=== PATIENT | female | born 1960 | race Caucasian/White ===

== ENCOUNTER 2018-02-14 08:10 | Emergency (ER) | payer BC, SELFPAY ==
[2018-02-14 08:15] VITALS: BP 123/79; PULSE 71; RESP 14; TEMP 37; O2SAT 100
--- NOTE | 2018-02-14 09:34 | ED.GENADUL_ITS ---
Discharge Plan Discharge Details Chief Complaint: Vascular Clinical Impression: Superficial thrombophlebitis of right leg Reason For Visit: leg rash Primary Care Provider: Mark Bowers ED Provider: Gato Hawley Disposition Patient Disposition: HOME Condition: Stable Home Meds and New Rx's Prescriptions: New amoxicillin-pot clavulanate [Augmentin] 875-125 mg tablet 1 tab PO BID Qty: 14 RF: 0 Continue esomeprazole magnesium [Nexium] 20 MG capsule,delayed release(DR/EC) 20 mg PO DAILY RF: 0 Discharge Instructions Instructions: Superficial Thrombophlebitis (ED) Additional Instructions: follow up with your primary care provider within a week if you have fevers or severe worsening of pain, or your whole leg becomes swollen return to the emergency department Discharge Data Discharge Physician: Gato Hawley Medical Decision Making MDM Narrative Medical decision making narrative: Pt here with what appears to be superficial thrombophlebitis of her varicose vein. She has no leg swelling and area is not near big veins of the leg so doubt dvt. Will start abx and advised f/u with pcp and return precautions given. She has no pain in in guinal canal so doubt hernia. No fevers, severe pain or crepitus to suggest nec fasc Differential Diagnosis thrombophlebitis, cellulitis, dvt HPI - General Adult General Mode of arrival: ambulatory . Date/Time Provider Initiated Documentation: 02/14/18 08:24 . Limitations to Documentation: no limitations . Information obtained by: patient . History of Present Illness 57 year old F presents to the emergency department with the chief complaint of right groin lump, described as mild, with intensity rated at 3. Quality is described as aching, and is localized to the lower extremity. Patient reports no radiation. Patient started experiencing this day(s) (1) and it has been constant. No relieving factors improve symptom(s), No exacerbating factors reported . Patient notes chest pain; denies fever/chills. Patient did receive the following treatments prior to arrival, none Related Data Home Medications Medication Instructions Recorded Confirmed esomeprazole magnesium [Nexium] 20 mg PO DAILY 04/06/14 02/14/18 Previous Rx's Medication Instructions Recorded amoxicillin-pot clavulanate 1 tab PO BID #14 tab 02/14/18 [Augmentin] Allergies Allergy/AdvReac Type Severity Reaction Status Date / Time No Known Allergies Allergy Unverified 02/14/18 08:19 General Stated Complaint: Vascular SARAH: 4 Review of Systems Review of Systems All systems reviewed & are unremarkable except as noted in HPI and below Constitutional Denies chills, Denies fever(s) and Denies weakness Eyes Patient Denies loss of vision ENT Denies change in voice Cardiovascular Denies chest pain and Denies dyspnea Respiratory Denies dyspnea Gastrointestinal Denies abdominal pain, Denies nausea and Denies vomiting Genitourinary Denies dysuria Musculoskeletal Denies joint swelling Integumentary/Breasts Reports rash Neurologic Denies loss of vision and Denies weakness Psychiatric Denies depression Endocrine Denies cold intolerance and Denies heat intolerance Allergic/Immunologic Reports urticaria PFSH Family History Mother Essential hypertension Personal history of malignant neoplasm Alzheimer disease Father Personal history of malignant neoplasm Sister Personal history of malignant neoplasm Sister No problems noted. Brother No problems noted. Brother No problems noted. Grandfather Alzheimer disease Grandfather Personal history of malignant neoplasm Grandmother Alzheimer disease Grandmother No problems noted. Medical History Angiomyolipoma of left kidney Anxiety Depression Hemorrhoids Reflux Social History Smoking/Tobacco Use Status: Former Tobacco Use Surgical History Appendectomy (~2002) Biopsy of breast Cholecystectomy (~2009) LEG VEIN EXCISION Ligation of fallopian tube (~1998) Repair of inguinal hernia Exam Const General: no acute distress Orientation: alert HENMT Head: normal to inspection Ears: external ears normal General nose exam: external nose normal Mouth: moist mucous membranes Eyes General: appearance normal, both eyes and all related structures Neck Neck: normal visual inspection Resp Effort & Inspection: normal respiratory effort and able to speak in complete sentences Cardio Rate: regular rate Skin General skin exam: other (right upper leg in mid anterior thigh has 0.5cm nodule in her varicose veins. There is no leg swelling or pitting edema. 2cm surrounding erythema with mild warmth, no calf pain or tenderness, no discharge or severe pain, no rashes or pain in inguinal canal) Neuro General: alert and oriented x3 Extrem General: normal to inspection Psych Mental Status: mental status grossly normal Course Vital Signs Temperature 37.0 C 02/14/18 08:15 Pulse 71 02/14/18 08:15 Respiratory Rate 14 02/14/18 08:15 Blood Pressure 123/79 02/14/18 08:15 Pulse Oximetry 100 02/14/18 08:15 Temperature 37.0 C 02/14/18 08:15 Pulse 71 02/14/18 08:15 Respiratory Rate 14 02/14/18 08:15 Blood Pressure 123/79 02/14/18 08:15 Pulse Oximetry 100 02/14/18 08:15
[2018-02-14 09:44] VITALS: RESP 12
[2018-02-14 10:00] VITALS: BP 119/79; PULSE 73; RESP 12; TEMP 36.9; O2SAT 97
== END 2018-02-14 10:01 | disposition home or self-care (01) ==
PROVIDERS: Emergency Provider Emergency Medicine; PCP Family Medicine
DX: I80.01 Phlebitis and thrombophlebitis of superficial vessels of right lower extremity (principal)
CPT/HCPCS: 99283

== ENCOUNTER 2018-07-16 02:09 | Outpatient (CLI) | payer BC, SELFPAY ==
[2018-07-16 11:36] LABS: HCT 40.1 % (36.0-46.0); HGB 12.9 g/dL (12.0-15.5); Mean Corp. HGB Concentration 32.2 g/dL (32.0-36.0); Mean Corpuscular Hemoglobin 29.5 pg (27.0-33.0); Mean Corpuscular Volume 91.8 fL (80-95); Mean Platelet Volume 11.2 fL (8.0-11.0); Platelet Count 254 x1000/uL (130-400); RBC 4.37 m/cumm (4.00-5.20); RBC Distribution Width 12.4 % (11.7-14.6); White Blood Cell Count 4.76 k/cumm (4.4-10.8)
[2018-07-16 11:52] LABS: Albumin 3.6 g/dL (3.4-5.0); Alkaline Phosphatase 86 U/L (46-116); BUN 15 mg/dL (7-18); Bilirubin, Total 0.4 mg/dL (0.2-1.0); CO2 30.8 mmol/L (21.0-32.0); CREATININE 0.57 mg/dL (0.55-1.02); Calcium 9.8 mg/dL (8.5-10.1); Chloride 105 mmol/L (98-107); Glucose 90 mg/dL (70-100); Potassium 4.3 mmol/L (3.5-5.1); Sodium 143 mmol/L (136-145); Total Protein 7.4 g/dL (6.4-8.2)
[2018-07-16 11:53] LABS: ALT 26 U/L (12-78); AST 19 U/L (15-37); Anion Gap 7.2 mmol/L (3-11); TSH (W/Ref FT4) 0.01 uIU/mL (0.358-3.74)
[2018-07-16 12:12] LABS: FREE T4 0.96 ng/dL (0.76-1.46)
== END 2018-07-16 02:29 ==
PROVIDERS: PCP Family Medicine; Visit Provider Family Medicine
DX: K21.9 Gastro-esophageal reflux disease without esophagitis (principal)
CPT/HCPCS: 36415; 80053; 85027; 84439; 84443

== ENCOUNTER 2018-12-06 12:25 | Outpatient (REF) | payer BC, SELFPAY ==
--- NOTE | 2018-12-06 12:10 | PAPFT_PTH ---
PATIENT: Althea Vargas LOC: [facility] U#:[id number] AGE/SX: 58/F ROOM: RE12/06/[address]: Jose Smith MD : 1960 BED: DIS: 12/06/2018 SPEC #: [id number] RECD: 12/06/18 16:44 STATUS: NAY REQ #: [id number] MARY: 12/06/18 12:[address]: Jose Smith DEPT: [facility] Cytology RECD BY: Mel Suarez ENTERED: 12/06/18 16:46 SP TYPE: PAPFT OTHR DR: Mark Bowers MD Tissues: 1 - CX/ENDOCX FOR PAP SMEARS Procedures: PAP THIN PREP/UVM Screening HPV DNA PROBE Comments: [id number]
== END 2018-12-06 12:45 ==
LOC: LBN 12:25
PROVIDERS: PCP Family Medicine; Visit Provider Obstetrics & Gynecology
DX: Z12.4 Encounter for screening for malignant neoplasm of cervix (principal); Z11.51 Encounter for screening for human papillomavirus (HPV)
CPT/HCPCS: 88142; 87624

== ENCOUNTER 2018-12-10 00:56 | Outpatient (CLI) | payer BC, SELFPAY ==
--- NOTE | 2018-12-10 12:30 | DI.US_ITS ---
SYMPTOMS/DIAGNOSIS: ABD PAIN AND CRAMPING, R10.9 PELVIC ULTRASOUND: Transabdominal and transvaginal exams were performed. Comparison is made with [id number]. The uterus measures 6.7 x 6 x 5.2 cm. Three discrete fibroids are identified, the largest measuring 3.3 cm located posteriorly. The endometrial stripe appears thickened at 5.5 mm. The right ovary is unremarkable. The left ovary was not able to be visualized. No free fluid or hydronephrosis is seen. IMPRESSION: Small uterine fibroids. Mild endometrial thickening.
== END 2018-12-10 01:16 ==
PROVIDERS: PCP Family Medicine; Visit Provider Obstetrics & Gynecology
DX: R10.9 Unspecified abdominal pain (principal); D25.9 Leiomyoma of uterus, unspecified
CPT/HCPCS: 76830; 76856

== ENCOUNTER 2018-12-23 11:46 | Outpatient (REF) | payer BC, SELFPAY ==
--- NOTE | 2018-12-23 11:10 | ENDOMET_PTH ---
PATIENT: Althea Vargas LOC: [facility] U#:[id number] AGE/SX: 58/F ROOM: RE12/23/[address]: Jose Smith MD : 1960 BED: DIS: 12/23/2018 SPEC #: [id number] RECD: 12/23/18 12:59 STATUS: ANY REQ #: [id number] MARY: 12/23/18 11:[address]: Jose Smith DEPT: Surgical Specimen RECD BY: Mel Suarez ENTERED: 12/23/18 12:59 SP TYPE: Endomet OTHR DR: Mark Bowers MD Tissues: 1 - ENDOMETRIUM BX/CURRETTE Procedures: GROSS AND MICRO LEVEL 4 Comments: [id number]
== END 2018-12-23 12:06 ==
LOC: LBN 11:46
PROVIDERS: PCP Family Medicine; Visit Provider Obstetrics & Gynecology
DX: N85.01 Benign endometrial hyperplasia (principal)
CPT/HCPCS: 88305

== ENCOUNTER 2019-03-13 01:31 | Outpatient (CLI) | payer BC, SELFPAY ==
[2019-03-13 10:17] LABS: FREE T4 1.06 ng/dL (0.76-1.46)
[2019-03-13 10:45] LABS: TSH < 0.01 uIU/mL (0.36-3.74)
[2019-03-13 16:49] LABS: T3,Free 5.4 pg/ml (2.8-5.3)
== END 2019-03-13 01:51 ==
PROVIDERS: PCP Family Medicine; Visit Provider Family Medicine
DX: R79.89 Other specified abnormal findings of blood chemistry (principal)
CPT/HCPCS: 36415; 84439; 84443; 84481

== ENCOUNTER 2019-03-24 01:10 | Outpatient (CLI) | payer BC, SELFPAY ==
--- NOTE | 2019-03-24 10:18 | DI.US_ITS ---
EXAM: US SOFT TISS EXTREMITY/GROIN CLINICAL HISTORY: left ant thigh mass R22.40. TECHNIQUE: Ultrasound performed using standard protocol. COMPARISON: US PELVIS TRANSVAGINAL from 12/10/2018 FINDINGS: Soft tissue ultrasound of the left anterior thigh was performed to evaluate palpable abnormalities. There are 2 areas corresponding ultrasound abnormality at, 1 more inferiorly measuring about 8 millim eters in greatest diameter with a a homogeneous echotexture and slightly increased echogenicity in c omparison with surrounding subcutaneous fat. This has appearance consistent with lipoma. A more sup eriorly located palpable area of abnormality corresponds to normal appearing subcutaneous fat echoge nicity. Findings as described are also consistent with lipoma or normal subcutaneous fat. No additi onal mass or cyst identified. IMPRESSION: Ultrasound findings correspond to lipomas of the left anterior thigh.
== END 2019-03-24 01:30 ==
PROVIDERS: PCP Family Medicine; Visit Provider Family Medicine
DX: R22.42 Localized swelling, mass and lump, left lower limb (principal); D17.24 Benign lipomatous neoplasm of skin and subcutaneous tissue of left leg
CPT/HCPCS: 76882

== ENCOUNTER 2019-03-25 10:22 | Outpatient (CLI) | payer BC, SELFPAY ==
[2019-03-26 10:19] LABS: Thyroglobulin Antibody 15 U/mL (<61); Thyroperoxidase Antibody <28 U/mL (<61)
[2019-03-26 14:45] LABS: Thyrotropin Receptor Ab <1.00 IU/L
== END 2019-03-25 10:42 ==
PROVIDERS: PCP Family Medicine; Visit Provider Family Medicine
DX: E05.90 Thyrotoxicosis, unspecified without thyrotoxic crisis or storm (principal)
CPT/HCPCS: 36415; 86376; 84235

== ENCOUNTER 2019-04-16 01:58 | Outpatient (CLI) | payer BC, SELFPAY ==
--- NOTE | 2019-04-16 09:22 | DI.NM_ITS ---
EXAM: NM I123 THYROID UP AND SC DAY 1 CLINICAL HISTORY: low TSH with elevated T3 r/o toxic adenoma TECHNIQUE: Thyroid uptake and scan was performed with ingestion of I-123 capsule, 346 microcuries. COMPARISON: Post CCK from 01/04/2010 FINDINGS: The 24-hour radioactive iodine uptake is 42 percent, which is slightly above the normal range of 10-3 5 percent. The 4-hour uptake is 16 percent, which is in the normal range. Thyroid scanning shows unremarkable homogeneous appearance of the thyroid gland. IMPRESSION: Mildly increased I-123 thyroid uptake at 42 percent. Visually normal thyroid.
== END 2019-04-16 02:18 ==
PROVIDERS: PCP Family Medicine; Visit Provider Family Medicine
DX: E05.90 Thyrotoxicosis, unspecified without thyrotoxic crisis or storm (principal); R94.6 Abnormal results of thyroid function studies
CPT/HCPCS: A9516

== ENCOUNTER 2019-04-17 02:10 | Outpatient (CLI) | payer BC, SELFPAY ==
--- NOTE | 2019-04-17 09:34 | DI.NM_ITS ---
EXAM: NM I123 THYROID UP SC DAY 2 CLINICAL HISTORY: low tsh with elevated T3 r/o toxic adenoma E05.90THYROTOXICOSIS. TECHNIQUE: Thyroid uptake and scan was performed with ingestion of I-123 capsule, 346 microcuries. COMPARISON: Post CCK from 01/04/2010 FINDINGS: The 24-hour radioactive iodine uptake is 42 percent, which is slightly above the normal range of 10-3 5 percent. The 4-hour uptake is 16 percent, which is in the normal range. Thyroid scanning shows unremarkable homogeneous appearance of the thyroid gland. IMPRESSION: Mildly increased I-123 thyroid uptake at 42 percent. Visually normal thyroid.
== END 2019-04-17 02:30 ==
PROVIDERS: PCP Family Medicine; Visit Provider Family Medicine
DX: E05.90 Thyrotoxicosis, unspecified without thyrotoxic crisis or storm (principal); R94.6 Abnormal results of thyroid function studies
CPT/HCPCS: 78014; A9512

== ENCOUNTER 2020-03-25 13:22 | Outpatient (REF) | payer BC, SELFPAY ==
--- NOTE | 2020-03-25 11:30 | PAPFT_PTH ---
PATIENT: Althea Vargas LOC: [facility] U#:[id number] AGE/SX: 59/F ROOM: RE03/25/[address]: Leora Delong APRN : 1960 BED: DIS: 03/25/2020 SPEC #: [id number] RECD: 03/26/20 12:03 STATUS: NAY REHiwot #: [id number] MARY: 03/25/20 11:[address]: Leora Delong DEPT: [facility] Cytology RECD BY: Agnes Sagastume Tissues: 1 - CX/ENDOCX FOR PAP SMEARS Procedures: PAP THIN PREP/UVM Screening HPV DNA PROBE Comments: [id number] (HPV 16/HPV 18/45)
== END 2020-03-25 13:42 ==
LOC: LBN 13:22
DX: Z87.42 Personal history of other diseases of the female genital tract (principal); Z12.4 Encounter for screening for malignant neoplasm of cervix
CPT/HCPCS: 88142; 87624

== ENCOUNTER → 2020-03-30 01:29 | Outpatient (CLI) | payer BC, SELFPAY ==
[2020-03-30 10:51] LABS: ALT 24 U/L (14-59); AST 17 U/L (15-37); Albumin 3.7 g/dL (3.4-5.0); Alkaline Phosphatase 92 U/L (46-116); Anion Gap 7.8 mmol/L (3-11); BUN 15 mg/dL (7-18); Bilirubin, Total 0.6 mg/dL (0.2-1.0); CO2 29.2 mmol/L (21.0-32.0); CREATININE 0.63 mg/dL (0.55-1.02); Calcium 9.1 mg/dL (8.5-10.1); Calculated LDL 150 mg/dL (<100); Chloride 104 mmol/L (98-107); Cholesterol 224 mg/dL (<200); Glucose 94 mg/dL (74-106); HDL Cholesterol 65 mg/dL (40-60); Potassium 4.4 mmol/L (3.5-5.1); Sodium 141 mmol/L (136-145); Total Protein 7.2 g/dL (6.4-8.2); Triglyceride 47 mg/dL (<150); Vitamin B12 405 pg/mL (193-986)
[2020-03-30 14:11] LABS: FREE T4 1.24 ng/dL (0.76-1.46)
== END ==
DX: Z00.00 Encounter for general adult medical examination without abnormal findings (principal); R53.83 Other fatigue; D51.8 Other vitamin B12 deficiency anemias; F32.9 Major depressive disorder, single episode, unspecified; E03.9 Hypothyroidism, unspecified; Z13.220 Encounter for screening for lipoid disorders
CPT/HCPCS: 36415; 80053; 80061; 82607; 84439; 84443

== ENCOUNTER 2020-09-07 03:23 | Outpatient (CLI) | payer BC, SELFPAY ==
[2020-09-08 15:54] LABS: COVID-19 RT-PCR UVMMC Result Negative (Negative)
== END 2020-09-07 03:24 | disposition home or self-care (01) ==
LOC: LBO 03:23
DX: Z20.822 Contact with and (suspected) exposure to COVID-19 (principal)
CPT/HCPCS: U0003

== ENCOUNTER 2020-10-28 13:40 | Outpatient (REF) | payer BC, SELFPAY ==
[2020-10-28 21:30] LABS: TSH (W/Ref FT4) < 0.01 uIU/mL (0.36-3.74)
[2020-10-28 22:09] LABS: FREE T4 1.31 ng/dL (0.76-1.46)
== END 2020-10-28 13:41 | disposition home or self-care (01) ==
LOC: LBN 13:40
PROVIDERS: Visit Provider Nurse Practitioner Family
DX: G47.00 Insomnia, unspecified (principal); R94.6 Abnormal results of thyroid function studies
CPT/HCPCS: 84439; 84443

== ENCOUNTER 2021-02-03 09:05 | Outpatient (CLI) | payer BC, SELFPAY ==
[2021-02-03 13:32] LABS: TSH (W/Ref FT4) < 0.01 uIU/mL (0.36-3.74)
[2021-02-03 13:57] LABS: FREE T4 1.21 ng/dL (0.76-1.46)
[2021-02-03 17:08] LABS: T3,Free 5.6 pg/mL (2.8-5.3)
== END 2021-02-03 09:06 | disposition home or self-care (01) ==
LOC: LOS 09:08
DX: G47.00 Insomnia, unspecified (principal); R79.89 Other specified abnormal findings of blood chemistry
CPT/HCPCS: 36415; 84439; 84443; 84481

== ENCOUNTER 2021-03-28 11:52 | Outpatient (REF) | payer BC, SELFPAY ==
--- NOTE | 2021-03-28 10:00 | PAPFT_PTH ---
PATIENT: Althea Vargas LOC: [facility] U#:[id number] AGE/SX: 60/F ROOM: RE03/28/[address]: Leora Delong APRN : 1960 BED: DIS: 03/28/2021 SPEC #: [id number] RECD: 03/29/21 13:10 STATUS: NAY REQ #: [id number] MARY: 03/28/21 10:[address]: Nevaeh Shoemaker DEPT: [facility] Cytology RECD BY: Mel Suarez ENTERED: 03/29/21 13:10 SP TYPE: PAPFT OTHR DR: Leora Delong APRN Tissues: 1 - CX/ENDOCX FOR PAP SMEARS Procedures: PAP THIN PREP/UVM Screening HPV DNA PROBE Comments: [id number] (HPV 16 & 18/45)
== END 2021-03-28 11:53 | disposition home or self-care (01) ==
LOC: LBN 11:52
DX: Z12.4 Encounter for screening for malignant neoplasm of cervix (principal); Z11.51 Encounter for screening for human papillomavirus (HPV); B97.7 Papillomavirus as the cause of diseases classified elsewhere
CPT/HCPCS: 88142; 87624

== ENCOUNTER 2021-03-30 01:41 | Outpatient (CLI) | payer BC, SELFPAY ==
[2021-03-30 11:28] LABS: ALT 26 U/L (14-59); AST 15 U/L (15-37); Albumin 3.6 g/dL (3.4-5.0); Alkaline Phosphatase 94 U/L (46-116); Anion Gap 8.6 mmol/L (3-11); BUN 17 mg/dL (7-18); Bilirubin, Total 0.6 mg/dL (0.2-1.0); CO2 27.4 mmol/L (21.0-32.0); CREATININE 0.6 mg/dL (0.55-1.02); Calcium 9.1 mg/dL (8.5-10.1); Calculated LDL 148 mg/dL (<100); Chloride 108 mmol/L (98-107); Cholesterol 223 mg/dL (<200); Glucose 93 mg/dL (74-106); HDL Cholesterol 65 mg/dL (40-60); Potassium 4.2 mmol/L (3.5-5.1); Sodium 144 mmol/L (136-145); Total Protein 7.1 g/dL (6.4-8.2); Triglyceride 54 mg/dL (<150)
[2021-03-30 18:46] LABS: Prolactin 6.9 ng/mL (See Table); Thyroglobulin Antibody <15 U/mL (<=60); Thyroperoxidase Antibody <28 U/mL (<=60)
[2021-03-31 12:34] LABS: Thyrotropin Receptor Ab <1.10 IU/L
== END 2021-03-30 01:42 | disposition home or self-care (01) ==
LOC: LOS 01:41
DX: Z00.00 Encounter for general adult medical examination without abnormal findings (principal); E78.5 Hyperlipidemia, unspecified; R79.89 Other specified abnormal findings of blood chemistry
CPT/HCPCS: 36415; 80053; 80061; 82533; 86376; 84146; 84235

== ENCOUNTER 2022-10-13 14:43 | Outpatient (REF) | payer BC, SELFPAY ==
[2022-10-13 12:35] LABS: ALT 29 U/L (14-59); AST 20 U/L (15-37); Albumin 3.8 g/dL (3.4-5.0); Alkaline Phosphatase 88 U/L (46-116); Amylase 44 U/L (25-115); BUN 25 mg/dL (7-18); Bilirubin, Total 0.4 mg/dL (0.2-1.0); CREATININE 0.7 mg/dL (0.55-1.02); Calcium 9.5 mg/dL (8.5-10.1); Chloride 105 mmol/L (98-107); Estimated GFR 97.72 (mL/min/1.73m2); Glucose 106 mg/dL (74-106); Lipase 42 U/L (16-77); Potassium 4.6 mmol/L (3.5-5.1); Sodium 141 mmol/L (136-145); Total Protein 7.5 g/dL (6.4-8.2)
[2022-10-13 12:49] LABS: Calculated LDL 190 mg/dL (<100); Cholesterol 272 mg/dL (<200); HDL Cholesterol 68 mg/dL (40-60); Triglyceride 72 mg/dL (<150)
== END 2022-10-13 14:44 | disposition home or self-care (01) ==
LOC: LBN 14:43
PROVIDERS: PCP Nurse Practitioner Family; Visit Provider Nurse Practitioner Family
DX: R10.11 Right upper quadrant pain (principal); Z13.1 Encounter for screening for diabetes mellitus; Z13.220 Encounter for screening for lipoid disorders
CPT/HCPCS: 80053; 80061; 83690; 82150

== ENCOUNTER 2022-11-10 14:08 | Outpatient (REF) | payer BC, SELFPAY ==
--- NOTE | 2022-11-10 13:30 | PAPFT_PTH ---
PATIENT: Althea Vargas LOC: [facility] U#:[id number] AGE/SX: 62/F ROOM: RE11/10/[address]: Olinda Hernandez : 1960 BED: DIS: 11/10/2022 SPEC #: [id number] RECD: 11/10/22 17:19 STATUS: NAY REHiwot #: [id number] MARY: 11/10/22 13:[address]: Olinda Hernandez DEPT: [facility] Cytology RECD BY: Mel Suarez ENTERED: 11/10/22 17:20 SP TYPE: PAPFT OTHR DR: Dawson Chirinos DNP Tissues: 1 - CX/ENDOCX FOR PAP SMEARS Procedures: PAP THIN PREP/UVM Screening HPV DNA PROBE Comments: [id number]
== END 2022-11-10 14:09 | disposition home or self-care (01) ==
LOC: LBN 14:08
PROVIDERS: PCP Nurse Practitioner Family; Visit Provider Obstetrics & Gynecology Gynecology
DX: Z12.4 Encounter for screening for malignant neoplasm of cervix (principal); Z11.51 Encounter for screening for human papillomavirus (HPV); R87.810 Cervical high risk human papillomavirus (HPV) DNA test positive
CPT/HCPCS: 88142; 87624

== ENCOUNTER 2022-12-25 09:26 | Outpatient (REF) | payer BC, SELFPAY ==
--- NOTE | 2022-12-25 08:30 | CER_PTH ---
PATIENT: Althea Vargas LOC: [facility] U#:[id number] AGE/SX: 62/F ROOM: RE12/25/[address]: Olinda Hernandez : 1960 BED: DIS: 12/25/2022 SPEC #: [id number] RECD: 12/25/22 12:29 STATUS: NAY REHiwot #: [id number] MARY: 12/25/22 08:[address]: Olinda Hernandez DEPT: Surgical Specimen RECD BY: Agnes Sagastume ENTERED: 12/25/22 12:31 SP TYPE: CER OTHR DR: Dawson Chirinos DNP Tissues: 1 - CERVICAL BIOPSY Procedures: GROSS AND MICRO LEVEL 4 IMMUNOPEROXIDASE STAIN Comments: [id number]
== END 2022-12-25 09:27 | disposition home or self-care (01) ==
LOC: LBN 09:26
PROVIDERS: PCP Nurse Practitioner Family; Visit Provider Obstetrics & Gynecology Gynecology
DX: Z86.19 Personal history of other infectious and parasitic diseases (principal)
CPT/HCPCS: 88305; 88361

== ENCOUNTER 2023-10-06 13:26 | Outpatient (REF) | payer BC, SELFPAY | END 2023-10-06 13:27 | disposition home or self-care (01) | LOC: LBN 13:26 | PROVIDERS: PCP Nurse Practitioner Family; Visit Provider Nurse Practitioner Family | DX: L03.114 Cellulitis of left upper limb (principal); R53.83 Other fatigue; S50.812A Abrasion of left forearm, initial encounter | CPT/HCPCS: 87077; 87070; 87205 ==

== ENCOUNTER → 2023-10-10 03:57 | Outpatient (CLI) | payer BC, SELFPAY ==
--- NOTE | 2023-10-10 07:45 | DI.RAD_ITS ---
Exam(s) XR HIP LT COMPLETE AP PELVIS EXAM: XR HIP LT COMPLETE AP PELVIS CLINICAL HISTORY: LT HIP PAIN, M25.552. TECHNIQUE: 2D digital imaging was performed. Two views. COMPARISON: No exams were available for comparison FINDINGS: BONES: No acute fracture is present. No bony destructive lesion is seen. JOINTS: No dislocation present. Mild narrowing of the right hip joint space. [id number]-[id number] narr owing of the left hip joint space. Acetabular spurring noted bilaterally. Mild degenerative changes are present in the SI joints and pubic symphysis. SOFT TISSUE: Normal. IMPRESSION: Moderate degenerative changes of the left hip. Mild degenerative changes of the right hip. DATA REPOSITORY: RADIATION DOSE DELIVERED:
== END ==
PROVIDERS: PCP Nurse Practitioner Family; Visit Provider Nurse Practitioner Family
DX: M16.12 Unilateral primary osteoarthritis, left hip (principal)
CPT/HCPCS: 73502

== ENCOUNTER 2023-10-15 14:01 | Outpatient (REF) | payer BC, SELFPAY ==
[2023-10-15 21:21] LABS: HCT 39.5 % (36.0-46.0); HGB 12.8 g/dL (11.2-15.7); MCH 30.3 pg (27.0-33.0); MCHC 32.4 % (32.0-36.0); MCV 94 fL (80-95); MPV 10.8 fL (8.0-11.0); Platelet Count 185 10^3/uL (130-400); RBC 4.22 10^6/uL (3.93-5.22); RDW 12.4 % (11.7-14.6); WBC 5.81 10^3/uL (4.4-10.8)
[2023-10-15 22:08] LABS: Vitamin D 25 Total 30.4 ng/mL (30-100)
[2023-10-15 22:10] LABS: ALT 29 U/L (14-59); AST 20 U/L (15-37); Albumin 3.8 g/dL (3.4-5.0); Alkaline Phosphatase 81 U/L (46-116); Anion Gap 10.7 mmol/L (3-11); BUN 14 mg/dL (7-18); Bilirubin, Total 0.3 mg/dL (0.2-1.0); CO2 26.3 mmol/L (21.0-32.0); CREATININE 0.7 mg/dL (0.55-1.02); Calcium 9.4 mg/dL (8.5-10.1); Chloride 105 mmol/L (98-107); Cholesterol 272 mg/dL (<200); Estimated GFR 97.12 (mL/min/1.73m2); Glucose 89 mg/dL (74-106); HDL Cholesterol 66 mg/dL (40-60); Potassium 4.7 mmol/L (3.5-5.1); Sodium 142 mmol/L (136-145); Total Protein 7.6 g/dL (6.4-8.2); Vitamin B12 709 pg/mL (193-986)
[2023-10-15 22:49] LABS: Calculated LDL 181 mg/dL (<100); Triglyceride 127 mg/dL (<150)
== END 2023-10-15 14:02 | disposition home or self-care (01) ==
LOC: LBN 14:01
PROVIDERS: PCP Nurse Practitioner Family; Visit Provider Nurse Practitioner Family
DX: R53.83 Other fatigue (principal); E78.5 Hyperlipidemia, unspecified
CPT/HCPCS: 80053; 80061; 82306; 85027; 82607

== ENCOUNTER → 2023-10-22 03:13 | Outpatient (CLI) | payer BC, SELFPAY ==
--- NOTE | 2023-10-22 07:45 | DI.MRI_ITS ---
Exam(s) MR LUMBAR SPINE WO EXAM: MR LUMBAR SPINE WO CLINICAL HISTORY: no improvement with PT,LOW BACK PAIN WITH SCIATICA,M54.40. TECHNIQUE: Multiplanar multisequence MRI of the Lumbar spine was performed. COMPARISON: No exams were available for comparison FINDINGS: Bones: The last intervertebral disc space is designated the L5/S1 level for the numbering purpose of this examination. The vertebral body heights are well maintained. Alignment is satisfactory. Mild d egenerative endplate signal changes are seen at L5-S1. There is L5 spondylolysis and grade 1 spondyl olisthesis of L5 on S1. Cord: The conus tip ends at the T12 level. It is of normal size and signal intensity. T12-L1: No disc herniations or bulges are present. No central spinal canal or neural foraminal stenos is. L1-2: No disc herniations or bulges are present. No central spinal canal or neural foraminal stenosis . L2-3: No disc herniations or bulges are present. No central spinal canal or neural foraminal stenosis . L3-4: No disc herniations or bulges are present. There are degenerative changes of the facets. No si gnificant central spinal canal or neural foraminal stenosis is seen. L4-5: Mild degenerative changes of the facets. There is a mild diffuse disc bulge. No significant c entral spinal canal stenosis is seen. No significant neural foraminal stenosis is present. L5-S1: No disc herniations or bulges are present. Mild degenerative changes of the facets are seen. No significant central spinal canal stenosis is present. There is mild neural foraminal narrowing. Soft tissues: The visualized SI joints and sacrum are well maintained. The paraspinal soft tissues ar e unremarkable. Visualized abdominal organs: Colonic diverticulosis is present. IMPRESSION: 1. Degenerative changes in the spine as described above. There is mild bilateral neural foraminal na rrowing at L5-S1. 2. L5 spondylolysis and grade 1 spondylolisthesis of L5 on S1. DATA REPOSITORY:
== END ==
PROVIDERS: PCP Nurse Practitioner Family; Visit Provider Nurse Practitioner Family
DX: M51.16 Intervertebral disc disorders with radiculopathy, lumbar region (principal)
CPT/HCPCS: 72148

== ENCOUNTER 2023-11-21 15:22 | Outpatient (REF) | payer BC, SELFPAY ==
--- NOTE | 2023-11-21 15:30 | PAPFT_PTH ---
PATIENT: Althea Vargas LOC: [facility] U#:[id number] AGE/SX: 63/F ROOM: RE11/21/[address]: Olinda Hernandez : 1960 BED: DIS: 11/21/2023 SPEC #: [id number] RECD: 11/21/23 17:58 STATUS: NAY REHiwot #: [id number] MARY: 11/21/23 15:[address]: Olinda Hernandez DEPT: [facility] Cytology RECD BY: Mel Suarez ENTERED: 11/21/23 18:00 SP TYPE: PAPFT OTHR DR: Dawson Chirinos DNP Tissues: 1 - CX/ENDOCX FOR PAP SMEARS Procedures: PAP THIN PREP/UVM Screening HPV DNA PROBE Comments: [id number]
== END 2023-11-21 15:23 | disposition home or self-care (01) ==
LOC: LBN 15:22
PROVIDERS: PCP Nurse Practitioner Family; Visit Provider Obstetrics & Gynecology Gynecology
DX: Z11.51 Encounter for screening for human papillomavirus (HPV) (principal); Z01.419 Encounter for gynecological examination (general) (routine) without abnormal findings
CPT/HCPCS: 88142; 87624

== ENCOUNTER 2024-02-08 17:08 | Outpatient (REF) | payer BC, SELFPAY ==
--- NOTE | 2024-02-08 11:45 | SKI_PTH ---
PATIENT: Althea Vargas LOC: [facility] U#:[id number] AGE/SX: 63/F ROOM: RE02/08/[address]: Dawson Chirinos DNP : 1960 BED: DIS: 02/08/2024 SPEC #: [id number] RECD: 02/12/24 12:39 STATUS: NAY REQ #: [id number] MARY: 02/08/24 11:[address]: Dawson Mccoy DEPT: Surgical Specimen RECD BY: Mel Suarez Tissues: 1 - SKIN BIOPSY(SHAVE/PUNCH) Procedures: SKIN LEVEL 4 Comments: [id number]
--- OUTSIDE RECORDS SUMMARY | 2024-02-08 17:20 | XMS_ITS | Clinical Summary ---
Author Organization [facility] [place] [address] Care Team Providers Care Police Captain Senior Name Role Phone None Primary Care Provider Unavailabl e Allergies No known active allergies Medications Medication Sig Dispensed Refills Start Date End Date Status famotidine (Pepcid) 20 mg Tablet Take 1 tablet by mouth 2 times daily. 30 tablet 12 07/09/2021 Active PARoxetine (Paxil) 30 mg Tablet Take 1 tablet by mouth every morning. 07/09/2021 Active ELDERBERRY FRUIT ORAL Take 2 capsules by mouth daily. With zinc and vit C Active propranolol LA (Inderal LA) 60 mg Capsule,Sustained Action 24 hr Take 1 capsule by mouth daily. 90 capsule 08/04/2021 Active cholecalciferol, Vitamin D3, 50 mcg (2,000 unit) Capsule Take 1 capsule by mouth daily. 10/11/2022 Active levothyroxine (Synthroid) 100 mcg tablet TAKE ONE TABLET BY MOUTH EVERY DAY 5 DAYS OF THE WEEK, TAKE 1/2 TABLET ON BOTH SUNDAY AND SUNDAY 90 tablet 3 01/31/2024 Active Active Problems Problem Noted Date Diagnosed Date T3 thyrotoxicosis (TSH <0.01 , noramal FT4 1.2, high FT3 5.6 02/03/21); high I-123 uptake 42% diffusely without nodule on 04/17/19; negative TRAb, TPO and TgAb 07/09/2021 Familial hypercholesterolemia 07/09/2021 Gastroesophageal reflux, hemorrhoid 07/09/2021 Pap smear abnormality of cer vix/human papillomavirus (HPV) positive 2019 07/09/2021 Elevated blood pressure read ing without diagnosis of hypertension 07/09/2021 Adult BMI 31.0-31.9 kg/sq m 07/09/2021 Anxiety and depression 07/09/2021 Family history of colon canc er (mother) and breast cancer (sister) 07/09/2021 Angiolipoma of left kidney 07/09/2021 Chronic low back pain with sciatica 07/09/2021 Encounters Date Type Department Care Team Description 01/31/2024 [place] [address] Jospeh Denise MD from Last 3 Months Family History Medical History Relation Comments Depression Father Lymphoma Father Alzheimer Disease Mother Breast Cancer Mother Colorectal Cancer Mother Hypertension Mother Breast Cancer Sister Hyperlipidemia Sister Hypertension Sister Relation Status Comments Father Mother Sister Social History Tobacco Use Types Packs/Day Years Used Date Smoking Tobacco: Former Smokeless Tobacco: Never Comments:quit at age 43 Alcohol Use Standard Drinks/Week Comments Yes 2 (1 standard drink = 0.6 oz pur e alcohol) 0-2 glasses of wine per day Sex and Gender Information Value Date Recorded Sex Assigned at Not on file Gender Identity Not on file Sexual Orientation Not on file Last Filed Vital Signs Vital Sign Reading Time Taken Comments Blood Pressure 104/90 10/11/2022 11:19 AM EDT Pulse 69 10/11/2022 11:19 AM EDT Temperature 36.1 ??C (96.9 ??F) 10/11/2022 11:19 AM E DT Respiratory Rate - - Oxygen Saturation 98% 10/11/2022 11:19 AM EDT Inhaled Oxygen Concentration - - Weight 88.5 kg (195 lb) 10/11/2022 11:19 AM EDT Height 165.1 cm (5' 5) 10/11/2022 11:19 AM EDT Body Mass Index 32.45 10/11/2022 11:19 AM EDT Plan of Treatment Health Maintenance Due Date Last Done Comments CT Colonography 1960 Colonoscopy 1960 Colorectal Cancer Screening 1960 FIT DNA 1960 FIT 1960 Sigmoidoscopy (10 year) with FIT yearly 1960 Sigmoidoscopy 1960 HIV screen 1978 Hepatitis C Screening 1978 Lipid Screening 1978 Tdap adult 1979 Tetanus vaccine 1979 HPV test 1990 PAP Smear 1990 Breast Cancer Share Decision Needed 2000 Diabetes Screening (HgbA1C o r Glucose) 2000 Zoster vaccine (1 of 2) 2010 Advance Directive 2015 Covid-19 Vaccine (1 - 2022-2 4 season) 2023 Influenza (Flu) vaccine (1 o f 1 - Influenza standard series) 02/10/2024 Breast Cancer screening 03/31/2024 03/31/20, 02/20/2020, 08/22/2018, Additional history exists Procedures Procedure Name Priority Date/Time Associated Diagnosis Comments MAMMO SCREENING CAD AND JOSE BILATERAL Routine 03/31/2022 7:18 AM EDT Encounter for screening mammogram for breast cancer from Last 3 Months or Most Recently Relevant to Health Maintenance Results * Mammo Screening Cad and Jose Bilateral (03/31/2022 7:18 AM EDT) Anatomical Region Laterality Modality Breast Bilateral Mammography Narrative 03/31/2022 8:03 AM EDT BILATERAL MAMMOGRAPHY REASON FOR EXAM: Screening TECHNIQUE: CC and MLO views were obtained of each breast using standard 2-D mammography as well as 3-D tomosynthesis. Computer aided detection was used. This is compared with prior images. FINDINGS: There are scattered areas of fibroglandular density. There are no suspicious microcalcifications, masses, or areas of distortion. The pattern is stable. CONCLUSION: No mammographic evidence of malignancy. RECOMMENDATION: Regular screening mammograms starting between age 40 and 50 reduces the risk of from breast cancer. All screening tests have both risks and benefits. These risks and benefits should be assessed for each individual patient through discussion with their provider to determine their preferred breast cancer screening schedule. Women should report any breast changes to a health care provider right away. Some women, because of their family history, a genetic tendency, or other factors, should be screened with annual breast MRI as well as with mammograms. (The number of women who fall into this category is very small). Patients and health care providers should discuss each patient? s history to decide if earlier screening and/or breast MRI are appropriate. Screening should continue as long as a woman is in good health and is expected to live 10 years or longer. Screening mammography may not detect 10-15% of breast cancers. A result letter has been sent to this patient by [facility]. BIRADS CATEGORY 1: NEGATIVE Electronically signed by: MAC MARTINEZ MD Sam Soares MD IMG MAMMO ORDERAB LES from Last 3 Months or Most Recently Relevant to Health Maintenance Care Teams Police Captain Senior Relationship Specialty Start Date End Date None None PCP - General 10/11/22
--- OUTSIDE RECORDS SUMMARY | 2024-02-08 17:21 | XMS_ITS | Encounter Summary ---
[place] [address] Care Team Providers Care Rn Documentation Name Role Phone Unknown Primary Care Provider Unavailabl e Encounter Details Date Type Department Care Team (Late st Contact Info) Description 03/31/2022 6:53 AM EDT - 03/31/2022 11:59 PM EDT Hospital Encounter Mammography/[place] [id number] Sam Soares MD [address] [place] [address] Encounter for screening mammogram for breast cancer Discharge Disposition: Home Social History Tobacco Use Types Packs/Day Years [...] on file Sexual Orientation Not on file documented as of this encounter Medications at Time of Discharge Medication Sig Dispensed Refills Start Date End Date propranolol LA (Inderal LA) 60 mg Capsule,Sustained Action 24 hr Take 1 capsule by mouth daily. 90 capsule 08/04/2021 ELDERBERRY FRUIT ORAL Take 2 capsules by mouth daily. With zinc and vit C famotidine (Pepcid) 20 mg Tablet Take 1 tablet by mouth 2 times daily. 30 tablet 12 07/09/2021 PARoxetine (Paxil) 30 mg Tablet Take 1 tablet by mouth every morning. 07/09/2021 levothyroxine (Synthroid) 100 mcg Tablet Take 1 tablet by mouth daily. 90 tablet 3 11/09/2021 02/02/2023 cholecalciferol, Vitamin D3, (Vitamin D3) 1,000 unit Tablet Take 2,000 Units by mouth daily. 10/11/2022 documented as of this encounter Plan of Treatment Not on file documented as of this encounter Procedures Procedure Name Priority Date/Time Associated Diagnosis Comments MAMMO SCREENING CAD AND POLA BILATERAL Routine 03/31/2022 7:18 AM EDT Encounter for screening mammogram for breast cancer documented in this encounter Results * Mammo Screening Cad and Pola Bilateral (03/31/2022 7:18 AM EDT) Anatomical Region [...] Sam Soares MD IMG MAMMO ORDERAB LES documented in this encounter Visit Diagnoses Diagnosis Encounter for screening mammogram for breast cancer documented in this encounter Care Teams Rn Documentation Relationship Specialty Start Date End Date Unknown None PCP - General 03/04/22 10/10/22 documented as of this encounter
--- OUTSIDE RECORDS SUMMARY | 2024-02-08 17:21 | XMS_ITS | Encounter Summary ---
[place] [address] Care Team Providers Care Combine Operator Name Role Phone Leora Delong APRN Primary Care Provider [phone] Encounter Details Date Type Department Care Team (Latest Contact Info) Description 09/23/2021 10:50 AM EDT Laboratory Appointment Lab [address] [place] [id number] T3 thyrotoxicosis (TSH <0.01, noramal FT4 1.2, high FT3 5.6 02/03/21); high I-123 uptake 42% diffusely without nodule on 04/17/19; negative TRAb, TPO and TgAb Social History Tobacco Use Types Packs/Day Years [...] on file documented as of this encounter Plan of Treatment Not on file documented as of this encounter Procedures Procedure Name Priority Date/Time Associated Diagnosis Comments HC VENIPUNCTURE Routine 09/23/2021 10:53 AM EDT T3 thyrotoxicosis (TSH <0.01, noramal FT4 1.2, high FT3 5.6 02/03/21); high I-123 uptake 42% diffusely without nodule on 04/17/19; negative TRAb, TPO and TgAb HC THYROID STIMULATING HORMONE, SERUM Routine 09/23/2021 10:53 AM EDT T3 thyrotoxicosis (TSH <0.01, noramal FT4 1.2, high FT3 5.6 02/03/21); high I-123 uptake 42% diffusely without nodule on 04/17/19; negative TRAb, TPO and TgAb HC FREE THYROXINE (T4) Routine 09/23/2021 10:53 AM EDT T3 thyrotoxicosis (TSH <0.01, noramal FT4 1.2, high FT3 5.6 02/03/21); high I-123 uptake 42% diffusely without nodule on 04/17/19; negative TRAb, TPO and TgAb documented in this encounter Results * (ABNORMAL) TSH (09/23/2021 10:53 AM EDT) Thyroid Stimulating Hormone <0.01(L) 0.27 - 4.20 mcIU/mL [facility] Comment: Reference Interval (mcIU/mL): Females: ??First Trimester: 0.23-3.88 ??Second Trimester: 0.22-3.90 ??Third Trimester: 0.44-4.66 Blood 09/23/2021 10:5 3 AM EDT 09/23/2021 11:03 AM EDT Narrative Resulting Agency Comment Spec In Lab Joseph Denise MD CHEMISTRY ORDERAB LES [facility] [place] [address] * (ABNORMAL) T4, free (09/23/2021 10:53 AM EDT) Free T4 0.82(L) 0.93 - 1.70 ng/dL [facility] Comment: Reference Interval (ng/dL): Females: ??First Trimester: 0.97-1.68 ??Second Trimester: 0.77-1.51 ??Third Trimester: 0.77-1.49 Blood 09/23/2021 10:5 3 AM EDT 09/23/2021 11:03 AM EDT Narrative Resulting Agency Comment Spec In Lab Joseph Denise MD CHEMISTRY ORDERAB LES Performing Organization Address City/[facility]/ZIP Co de Phone Number [facility] [place] [place] [address] * T3 Total (09/23/2021 10:53 AM EDT) T3 Total 82 80 - 200 ng/dL [facility] Blood 09/23/2021 10:5 3 AM EDT 09/23/2021 11:03 AM EDT Narrative Resulting Agency Comment Spec In Lab Joseph Denise MD CHEMISTRY ORDERAB LES Performing Organization Address City/[facility] Co de Phone Number [facility] [place] [place] [address] documented in this encounter Visit Diagnoses Diagnosis T3 thyrotoxicosis (TSH <0.01, noramal FT4 1.2, high FT3 5.6 02/03/21); high I-123 uptake 42% diffusely without nodule on 04/17/19; negative TRAb, TPO and TgAb Thyrotoxicosis without mention of goiter or other cause, without mention of thyrotoxic crisis or storm documented in this encounter Care Teams Combine Operator Relationship Specialty Start Date End Date Leora Delong, GENERAL AGENT [address] [place] [address] PCP - General Family Medicine 04/06/21 03/03/22 documented as of this encounter
--- OUTSIDE RECORDS SUMMARY | 2024-02-08 17:21 | XMS_ITS | Encounter Summary ---
[place] [address] Care Team Providers Care Field Cane Scaler Name Role Phone Willian Duncan MD Primary Care Provider Encounter Details Date Type Department Care Team (Late st Contact Info) Description 05/10/2016 8:25 AM EST - 05/10/2016 11:59 PM EST Hospital [place] [address] Mark Bowers MD [address] [place], [place] [id number] Visit for screening mammogram Discharge Disposition: Home Social History Tobacco Use Types Packs/Day Years Used Date Smoking Tobacco: Never Assessed Sex and Gender Information Value Date Recorded Sex Assigned at Not on file Gender Identity Not on file Sexual Orientation Not on file documented as of this encounter Medications at Time of Discharge Medication Sig Dispensed Refills Start Date End Date esomeprazole (NEXIUM) 20 mg capsuleIndications:GERD (gastroesophageal reflux disease) Take 1 capsule by mouth every morning. 90 capsule 3 12/19/2010 07/09/2021 documented as of this encounter Plan of Treatment Not on file documented as of this encounter Procedures Procedure Name Priority Date/Time Associated Diagnosis Comments MAMMO SCREENING CAD AND POLA BILATERAL Routine 05/10/2016 8:40 AM EST Visit for screening mammogram documented in this encounter Results * Mammo Screen CAD and Pola Bilat (Generic) (05/10/2016 8:40 AM EST) Anatomical Region Laterality Modality Breast Bilateral Mammography Narrative 05/10/2016 11:11 AM EST BILATERAL MAMMOGRAPHY REASON FOR EXAM: Screening TECHNIQUE: [...] CONCLUSION: No mammographic evidence of malignancy. RECOMMENDATION: The [employer] and The Society of Breast Imaging recommend annual screening beginning at age 40 for the general female population. Screening should continue as long as a woman is in good health and is expected to live 10 more years or longer. All women should be familiar with the known benefits, limitations, and potential harms linked to breast cancer screening. They should also know how their breasts normally look and feel and report any breast changes to a health care provider right away. Some women - because of their family history, a genetic tendency, or certain other factors - should be screened with MRIs along with mammograms. (The number of women who fall into this category is very small.) The patient and health care provider should discuss the patient history and decide if earlier screening and breast MRI are appropriate. A result letter has been sent to this patient by the [facility]. BIRADS CATEGORY 1: NEGATIVE Mark Bowers MD IMG MAMMO ORDERABLES documented in this encounter Visit Diagnoses Diagnosis Visit for screening mammogram Other screening mammogram documented in this encounter Care Teams Field Cane Scaler Relationship Specialty Start Date End Date Willian Duncan MD [address] [place] [address] PCP - General 01/27/14 07/19/17 documented as of this encounter
--- OUTSIDE RECORDS SUMMARY | 2024-02-08 17:21 | XMS_ITS | Encounter Summary ---
[place] [address] Care Team Providers Care Supervisor Facepiece Line Name Role Phone Leora Delong APRN Primary Care Provider [phone] Encounter Details Date Type Department Care Team (Latest Contact Info) Description 11/09/2021 7:10 AM EDT Laboratory Appointment Lab [address] [place] [phone] T3 thyrotoxicosis; Low TSH level; Multiple thyroid nodules Social History Tobacco Use Types Packs/Day Years [...] Date/Time Associated Diagnosis Comments HC VENIPUNCTURE Routine 11/09/2021 7:14 AM EDT T3 thyrotoxicosis Low TSH level Multiple thyroid nodules HC THYROID STIMULATING HORMONE, SERUM Routine 11/09/2021 7:14 AM EDT T3 thyrotoxicosis Low TSH level Multiple thyroid nodules HC FREE THYROXINE (T4) Routine 11/09/2021 7:14 AM EDT T3 thyrotoxicosis Low TSH level Multiple thyroid nodules documented in this encounter Results * TSH (11/09/2021 7:14 AM EDT) Thyroid Stimulating Hormone 0.55 0.27 - 4.20 mcIU/mL [facility] Comment: Reference Interval (mcIU/mL): Females: ??First Trimester: 0.23-3.88 ??Second Trimester: 0.22-3.90 ??Third Trimester: 0.44-4.66 Blood 11/09/2021 7:14 AM EDT 11/09/2021 7:19 AM EDT Narrative Resulting Agency Comment Spec In Lab Joseph Denise MD CHEMISTRY ORDERAB LES Performing Organization Address [facility]/ZIP Co de Phone Number [facility] [place] [address] * (ABNORMAL) T4, free (11/09/2021 7:14 AM EDT) Free T4 0.71(L) 0.93 - 1.70 ng/dL [facility] Comment: Reference Interval (ng/dL): Females: ??First Trimester: 0.97-1.68 ??Second Trimester: 0.77-1.51 ??Third Trimester: 0.77-1.49 Blood 11/09/2021 7:14 AM EDT 11/09/2021 7:19 AM EDT Narrative Resulting Agency Comment Spec In Lab Joseph Denise MD CHEMISTRY ORDERAB LES Performing Organization Address City/[facility]/ZIP Co de Phone Number [facility] [place] [address] * (ABNORMAL) T3 Total (11/09/2021 7:14 AM EDT) T3 Total 54(L) 80 - 200 ng/dL [facility] Blood 11/09/2021 7:14 AM EDT 11/09/2021 7:19 AM EDT Narrative Resulting Agency Comment Spec In Lab Joseph Denise MD CHEMISTRY ORDERAB LES [facility] [place] [address] documented in this encounter Visit Diagnoses Diagnosis T3 thyrotoxicosis Thyrotoxicosis without mention of goiter or other cause, without mention of thyrotoxic crisis or storm Low TSH level Nonspecific abnormal results of thyroid function study Multiple thyroid nodules Nontoxic multinodular goiter documented in this encounter Care Teams Supervisor Facepiece Line Relationship Specialty Start Date End Date Leora Delong, RUFINO [address] [place] [address] PCP - General Family Medicine 04/06/21 03/03/22 documented as of this encounter
--- OUTSIDE RECORDS SUMMARY | 2024-02-08 17:21 | XMS_ITS | Encounter Summary ---
[place] [address] Care Team Providers Care Clay Puddler Name Role Phone Leora Delong APRN Primary Care Provider [phone] Reason for Referral * Diagnostic Test (Routine) - Closed Specialty Diagnoses / Procedures Referred By Carlotta pyle Referred To Contact Radiology Diagnoses T3 thyrotoxicosis Low TSH level Multiple thyroid nodules Procedures NM I-131 Initial Therapy Joseph Denise MD [facility] [place] [address] [place] [address] Referral ID Status Reason Start Date Expiration Date V isits Requested Visits Authorized [id number] Closed Specialty Service Requested 08/12/2021 06/10/2022 1 1 Reason for Visit * Diagnostic Test (Routine) - Closed Specialty Diagnoses / Procedures Referred By Contdi pyle Referred To Contact Radiology Diagnoses T3 thyrotoxicosis Low TSH level Multiple thyroid nodules Procedures NM I-131 Initial Therapy Joseph Denise MD [facility] [place] [address] [place] [address] Referral ID Status Reason Start Date Expiration Date V isits Requested Visits Authorized [id number] Closed Specialty Service Requested 08/12/2021 06/10/2022 1 1 Encounter Details Date Type Department Care Team (Latest Contact Info) Description 08/12/2021 11:58 AM EST - 08/12/2021 11:59 PM [facility] Hospital [place] [address] Joseph Denise MD [facility] [place] [address] T3 thyrotoxicosis; Low TSH level; Multiple thyroid nodules Discharge Disposition: Home Social History Tobacco Use [...] mouth daily. 90 tablet 3 11/09/2021 02/02/2023 levothyroxine (Synthroid) 50 mcg Tablet Take 1 tablet by mouth daily. 90 tablet 3 09/23/2021 11/09/2021 cholecalciferol, Vitamin D3, (Vitamin D3) 1,000 unit Tablet Take 2,000 Units by mouth daily. 10/11/2022 documented as of this encounter Plan of Treatment Not on file documented as of this encounter Procedures Procedure Name Priority Date/Time Associated Diagnosis Comments NM I 131 INITIAL THERAPY Routine 08/12/2021 1:30 PM EST T3 thyrotoxicosis Low TSH level Multiple thyroid nodules documented in this encounter Results * NM I-131 Initial Therapy (08/12/2021 1:30 PM EST) Anatomical Region Laterality Modality Nuclear Medicine Impressions 08/12/2021 4:54 PM EST FINDINGS/IMPRESSION: Radioiodine administered for treatment of hyperthyroidism without complication. Thank you for letting us participate in the care of this patient. ??If you are a health care provider and have any questions regarding this report, please contact the number below. ??For patients who have questions please contact the health child caregiver that requested your imaging first. ? Electronically signed by: Porfirio Stovall MD, [facility] ([phone]), at 08/12/2021 4:54 PM Narrative 08/12/2021 4:54 PM EST EXAMINATION: NM I-131 INITIAL THERAPY CLINICAL HISTORY: I-131 therapy for Toxic multinodular goiter with hyperthyroid and elevated I-123 uptake of 44.2% on 08/03/21. Thanks! not on any thyroid medis and still on low iodine diet TECHNIQUE: The treatment of hyperthyroidism using radioactive iodine, as well as alternative forms of therapy were discussed with the patient. The patient was told about the possible side effects and necessary precautions. Possible outcomes, including the potential of permanent hypothyroidism were mentioned. Informed consent was signed. The patient received 31.5 mCi of I-131 administered orally and left the department in good condition. COMPARISON: None Procedure Note Porfirio Stovall MD - 08/12/2021 EXAMINATION: NM I-131 INITIAL THERAPY CLINICAL HISTORY: I-131 therapy for Toxic multinodular goiter withhyperthyroid and elevated I-123 uptake of 44.2% on 08/03/21. Thanks! not on any thyroid medis and still on low iodine diet TECHNIQUE: The treatment of hyperthyroidism using radioactive iodine, aswell as alternative forms of therapy were discussed with the patient. The patientwas told about the possible side effects and necessary precautions. Possible outcomes, including the potential of permanent hypothyroidism werementioned. Informed consent was signed. The patient received 31.5 mCi of I-131administered orally and left the department in good condition. COMPARISON: None IMPRESSION FINDINGS/IMPRESSION: Radioiodine administered for treatment of hyperthyroidism withoutcomplication. Thank you for letting us participate in the care of this patient. If youare a health care provider and have any questions regarding this report,please contact the number below. For patients who have questions please contactthe health child caregiver that requested your imaging first. Electronically signed by: Porfirio Stovall MD, [facility]([phone]), at 08/12/2021 4:54 PM Joseph Denise MD IM NM ORDERABLES documented in this encounter Visit Diagnoses Diagnosis T3 thyrotoxicosis Thyrotoxicosis without mention of goiter or other cause, without mention of thyrotoxic crisis or storm Low TSH level Nonspecific abnormal results of thyroid function study Multiple thyroid nodules Nontoxic multinodular goiter documented in this encounter Administered Medications Inactive Administered Medications - up to 3 most recent administrations Medication Order MAR Action Action Date Dose Rate Site iodine I-131 therapeutic capsule 0-34 mCi 0-34 mCi, Oral, ONCE PRN, 1 dose, Starting on Sun08/12/21 at 1425, Until Sun08/12/21 at 1320, Per Protocol, Radiology Contrast, Routine Given 08/12/2021 1:20 PM EST 31.5 mCi documented in this encounter Care Teams Clay Puddler Relationship Specialty Start Date End Date Leora Delong APRN [address] [place] [address] [address] [facility] [address] [place] [address] PCP - General Family Medicine 04/06/21 03/03/22 documented as of this encounter
--- OUTSIDE RECORDS SUMMARY | 2024-02-08 17:21 | XMS_ITS | Encounter Summary ---
[place] [address] Care Team Providers Care Cap Sizer Name Role Phone Maribell Bonner MD Primary Care Provider [phone] Encounter Details Date Type Department Care Team (Latest Contact Info) Description 08/14/2012 10:42 AM EST - 08/14/2012 11:59 PM EST Hospital En[place] [address] CLINIC, Maribell Rodriguez MD [address] [place], [place] [address] Discharge Disposition: Home Social History Tobacco Use [...] Date/Time Associated Diagnosis Comments MAMMO SCREENING CAD BILATERAL Routine 08/14/2012 11:02 AM EST documented in this encounter Results * Mammo digital bilateral Screening with CAD (08/14/2012 11:02 AM EST) Anatomical Region Laterality Modality Breast Bilateral Mammography 08/14/2012 11:0 2 AM EST Narrative 08/16/2012 9:55 AM EST Reason for Exam: Screening ?? Technique: Craniocaudal (CC) and Medio-lateral Oblique (MLO) views of both breasts obtained with direct digital capture. The exam was evaluated by CAD version 8.3.17. ?? Findings: ?? This is a negative mammogram (ACR Category 1). ??There is a stable fibroglandular pattern without significant change from prior studies. There is no mammographic evidence of cancer. ??The breasts are heterogeneously dense which limits mammographic sensitivity for the detection of malignancy. ?? CONCLUSION: This is a NEGATIVE mammogram (ACR Category 1). ?? Routine screening mammography is recommended with the frequency dependent upon the patient's age and breast cancer risk factors. A letter has been sent to this patient by the breast imaging center. Procedure Note Sandy Jaimes MD - 08/16/2012 Reason for Exam: Screening Technique: Craniocaudal (CC) and Medio-lateral Oblique (MLO) views of both breasts obtained with direct digital capture. The exam was evaluated by CAD version 8.3.17. Findings: This is a negative mammogram (ACR Category 1). There is a stable fibroglandular pattern without significant change from prior studies. There is no mammographic evidence of cancer. The breasts areheterogeneously dense which limits mammographic sensitivity for the detection ofmalignancy. CONCLUSION: This is a NEGATIVE mammogram (ACR Category 1). Routine screening mammography is recommended with the frequency dependentupon the patient's age and breast cancer risk factors. A letter has been sent to this patient by the breast imaging center. Maribell Bonner MD IMG MAMMO ORDERABLES documented in this encounter Visit Diagnoses Not on filedocumented in this encounter Care Teams Cap Sizer Relationship Specialty Start Date End Date Maribell Bonner MD [address] [place] [address] PCP - General 05/03/10 01/26/14 documented as of this encounter
--- OUTSIDE RECORDS SUMMARY | 2024-02-08 17:21 | XMS_ITS | Encounter Summary ---
Author Organization [facility] Address [address] [place] [address] Care Team Providers Care Men'S Garment Fitter Name Role Phone Maribell Bonner MD Primary Care Provider Encounter Details Date Type Department Care Team (Late st Contact Info) Description 11/13/2022 Lab Requisition [facility] [address] [place] [address] Olinda Salcedo MD [address] [place] [address],[address] [place] [id number] Encounter for other general examination Social History Tobacco Use Types Packs/Day Years Used Date Smoking Tobacco: Never Assessed Interpersonal Safety Answer Date Record ed Physically Hurt Never 01/11/2020 Verbally Threaten Not on file 01/11/2020 Sex and Gender Information Value Date Recorded Sex Assigned at Not on file Gender Identity Not on file Sexual Orientation Not on file documented as of this encounter Plan of Treatment Not on file documented as of this encounter Procedures Procedure Name Priority Date/Time Associated Diagnosis Comments PAP TEST Today 11/10/2022 13:30 EDT Encounter for other general examination HPV DNA DETECTION WITH GENOTYPING, PCR Today 11/10/2022 13:30 EDT Encounter for other general examination documented in this encounter Results * (ABNORMAL) HUMAN PAPILLOMAVIRUS (HPV) DETECTION-HIGH RISK TYPES (11/10/2022 13:30 EDT) HPV other High Risk types, PCR Positive( A) Negative 11/29/2022 12:49 EDT [facility] Comment:E6 OR E7 mRNA from o ne or more types of HPV types 16,18,31,33,35,39,45,51,52,56,58,59,66, and 68 is detected by grade foreman mediated amplification. High and intermediate risk HPV types are associated with most squamous intraepithelial lesions and cervical cancers. Papanicolaou smear specimen (specimen) CERVIX UTERI STRUCTURE / Unknown 11/10/2022 13:30 EDT 11/28/2022 10:26 EDT Olinda Salcedo MD MICROBIOLOGY - GENER AL ORDERABLES [facility] [address] [place] [address] * PAP TEST (11/10/2022 13:30 EDT) Specimens A. Cervix and/or Endocervix , ThinPrep Imaging System with Manual Evaluation 11/29/2022 12:49 EDT [facility] Specimen Adequacy Satisfactory for Evaluation - transformation zone component present 11/29/2022 12:49 EDT [facility] General Categorization Negative for intraepithelial lesion or malignancy 11/29/2022 12:49 T [facility] Attestation . 11/29/2022 12:49 T [facility] at 1249 Clinical History See below 11/30/19 12:49 EDT [facility] HPV The result for the Human Papillomavirus (HPV) Detection-High Risk Types is Positive . E6 OR E7 mRNA from one or more types of HPV types 16,18,31,33,35,39 ,45,51,52,56,58,5 9,66, and 68 is detected by grade foreman mediated amplification. High and intermediate risk HPV types are associated with most squamous intraepithelial lesions and cervical cancers. Testing was performed on specimen [id number] and was resulted on 11/29/2022 1249 EDT by MADHURI, LAB INSTRUMENT RESULTS IN 11/29/2022 12:49 EDT [facility] Performing Lab [facility] 11/29/2022 12:49 EDT [facility] Scanned Images 11/29/2022 12:49 EDT [facility] Papanicolaou smear specimen (specimen) CERVIX UTERI STRUCTURE / Unknown 11/10/2022 13:30 EDT 11/13/2022 9:30 EDT Olinda Salcedo MD PATHOLOGY ORDERABLES Performing Organization Address City/State/[facility] Co de Phone Number [facility] [address] [place] [address] documented in this encounter Visit Diagnoses Diagnosis Encounter for other general examination documented in this encounter Care Teams Men'S Garment Fitter Relationship Specialty Start Date End Date Maribell Bonner MD [address] [place], [place] [address] PCP - General 06/07/09 documented as of this encounter
--- OUTSIDE RECORDS SUMMARY | 2024-02-08 17:21 | XMS_ITS | Encounter Summary ---
[place] [address] Care Team Providers Care Railroad Car Loader Name Role Phone Willian Duncan MD Primary Care Provider Encounter Details Date Type Department Care Team (Late st Contact Info) Description 01/18/2015 9:45 AM EDT - 01/18/2015 11:59 PM EDT Hospital En[place] [address] CLINIC, Mark Means MD [address] [place] [address] [address] [place], [place] [id number] Discharge Disposition: Home Social History Tobacco Use [...] Name Priority Date/Time Associated Diagnosis Comments MAMMO 2D DIGITAL SCREEN POLA BILATERAL Routine 01/18/2015 10:08 AM EDT documented in this encounter Results * Mammography Screen Pola 2D Bilateral (01/18/2015 10:08 AM EDT) Anatomical Region Laterality Modality Breast Bilateral Mammography 01/18/2015 10:0 8 AM EDT Narrative 01/19/2015 7:53 AM EDT Reason for Exam: Screening ?? Technique: Craniocaudal (CC) and Medio-lateral Oblique (MLO) views of both breasts obtained with direct digital capture. In addition to routine 2-D imaging, this exam was also performed with 3-D Tomographic Imaging (MLO and CC). ?? The exam was evaluated by CAD version 8.3.17. ?? Findings: ?? This is a negative mammogram (ACR Category 1). There is a stable fibroglandular pattern without significant change from prior studies. There is no mammographic evidence of cancer. The breasts are of scattered density. ?? CONCLUSION: This is a NEGATIVE mammogram (ACR Category 1). ?? Routine screening mammography is recommended with the frequency dependent upon the patient's age and breast cancer risk factors. A letter has been sent to this patient by the breast imaging center. ?? Procedure Note Sandy Jaimes MD - 01/19/2015 Reason for Exam: Screening Technique: Craniocaudal (CC) and Medio-lateral Oblique (MLO) views of both breasts obtained with direct digital capture. In addition to routine 2-D imaging, this exam was also performed with 3-D Tomographic Imaging (MLOand CC). The exam was evaluated by CAD version 8.3.17. Findings: This is a negative mammogram (ACR Category 1). There is a stablefibroglandular pattern without significant change from prior studies. There is no mammographic evidence of cancer. The breasts are of scattered density. CONCLUSION: This is a NEGATIVE mammogram (ACR Category 1). Routine screening mammography is recommended with the frequency dependentupon the patient's age and breast cancer risk factors. A letter has been sent to this patient by the breast imaging center. Mark Bowers MD IMG MAMMO ORDERABLES documented in this encounter Visit Diagnoses Not on filedocumented in this encounter Care Teams Railroad Car Loader Relationship Specialty Start Date End Date Willian Duncan MD [address] [place] [address] PCP - General 01/27/14 07/19/17 documented as of this encounter
--- OUTSIDE RECORDS SUMMARY | 2024-02-08 17:21 | XMS_ITS | Encounter Summary ---
[place] [address] Care Team Providers Care Segregator Name Role Phone Leora Delong APRN Primary Care Provider [phone] Encounter Details Date Type Department Care Team (Latest Contact Info) Description 02/17/2022 8:35 AM EDT Laboratory Appointment Lab [address] [place] [phone] T3 thyrotoxicosis; Low TSH level; Multiple thyroid [...] Date/Time Associated Diagnosis Comments HC VENIPUNCTURE Routine 02/17/2022 8:36 AM EDT T3 thyrotoxicosis Low TSH level Multiple thyroid nodules HC THYROID STIMULATING HORMONE, SERUM Routine 02/17/2022 8:36 AM EDT T3 thyrotoxicosis Low TSH level Multiple thyroid nodules HC FREE THYROXINE (T4) Routine 02/17/2022 8:36 AM EDT T3 thyrotoxicosis Low TSH level Multiple thyroid nodules documented in this encounter Results * TSH (02/17/2022 8:36 AM EDT) Thyroid Stimulating Hormone 0.31 0.27 - 4.20 mcIU/mL [facility] Comment: Reference Interval (mcIU/mL): Females: ??First Trimester: 0.23-3.88 ??Second Trimester: 0.22-3.90 ??Third Trimester: 0.44-4.66 Blood 02/17/2022 8:36 AM EDT 02/17/2022 8:42 AM EDT Narrative Resulting Agency Comment Spec In Lab Joseph Denise MD CHEMISTRY ORDERAB LES Performing Organization Address [facility] Co de Phone Number [facility] [place] [address] * T4, free (02/17/2022 8:36 AM EDT) Free T4 1.34 0.93 - 1.70 ng/dL [facility] Comment: Reference Interval (ng/dL): Females: ??First Trimester: 0.97-1.68 ??Second Trimester: 0.77-1.51 ??Third Trimester: 0.77-1.49 Blood 02/17/2022 8:36 AM EDT 02/17/2022 8:42 AM EDT Narrative Resulting Agency Comment Spec In Lab Joseph Denise MD CHEMISTRY ORDERAB LES Performing Organization Address City/[facility]/ZIP Co de Phone Number [facility] [place] [address] * (ABNORMAL) T3 Total (02/17/2022 8:36 AM EDT) T3 Total 63(L) 80 - 200 ng/dL [facility] Blood 02/17/2022 8:36 AM EDT 02/17/2022 8:42 AM EDT Narrative Resulting Agency Comment Spec In Lab Joseph Denise MD CHEMISTRY ORDERAB LES [facility] [place] [address] documented in this encounter Visit Diagnoses Diagnosis T3 thyrotoxicosis Thyrotoxicosis without mention of goiter or other cause, without mention of thyrotoxic crisis or storm Low TSH level Nonspecific abnormal results of thyroid function study Multiple thyroid nodules Nontoxic multinodular goiter documented in this encounter Care Teams Segregator Relationship Specialty Start Date End Date Leora Delong, RUFINO [address] [place] [address] PCP - General Family Medicine 04/06/21 03/03/22 documented as of this encounter
--- OUTSIDE RECORDS SUMMARY | 2024-02-08 17:21 | XMS_ITS | Encounter Summary ---
[place] [address] Care Team Providers Care Customs Investigator Name Role Phone Maribell Bonner MD Primary Care Provider Reason for Visit * Reason Onset Date Comments Other 10/05/2011 Encounter Details Date Type Department Care Team (Late st Contact Info) Description 10/05/2011 Telephone [place] [phone] Olga Scott Other Social History Tobacco Use Types Packs/Day Years Used Date Smoking Tobacco: Never Assessed Sex and Gender Information Value Date Recorded Sex Assigned at Not on file Gender Identity Not on file Sexual Orientation Not on file documented as of this encounter Miscellaneous Notes * Telephone Encounter - Olga Scott - 10/05/2011 4:49 PM EDT letter sent 07/07/2011 03:13PM TEVIN lETTER SENT 08/09/2011 10:30AM TEVIN letter sent 09/12/2011 10:03AM TEVIN MATA Notified 10/05/2011 04:49PM SAUL documented in this encounter Plan of Treatment Not on file documented as of this encounter Visit Diagnoses Not on filedocumented in this encounter Care Teams Customs Investigator Relationship Specialty Start Date End Date Maribell Bonner MD [address] [place] [address] PCP - General 05/03/10 01/26/14 documented as of this encounter
--- OUTSIDE RECORDS SUMMARY | 2024-02-08 17:21 | XMS_ITS | Encounter Summary ---
[place] [address] Care Team Providers Care Database Management System Specialist Name Role Phone Leora Delong APRN Primary Care Provider [phone] Reason for Referral * Diagnostic Test (Routine) - Closed Specialty Diagnoses / Procedures Referred By Carlotta t Referred To Contact Radiology Diagnoses T3 thyrotoxicosis Vitamin D insufficiency Low TSH level Procedures NM I-123 Thyroid Imaging w Uptake Radiopharm Admin Joseph Denise MD [facility] [place] [address] [place] [address] Referral ID Status Reason Start Date Expiration Date V isits Requested Visits Authorized [id number] Closed Specialty Service Requested 2021 06/10/2022 1 1 Reason for Visit * Diagnostic Test (Routine) - Closed Specialty Diagnoses / Procedures Referred By Contac t Referred To Contact Radiology Diagnoses T3 thyrotoxicosis Vitamin D insufficiency Low TSH level Procedures NM I-123 Thyroid Imaging w Uptake Radiopharm Admin Joseph Denise MD [facility] [place] [address] [place] [address] Referral ID Status Reason Start Date Expiration Date V isits Requested Visits Authorized [id number] Closed Specialty Service Requested 2021 06/10/2022 1 1 Encounter Details Date Type Department Care Team (Latest Contact Info) Description 2021 1:03 PM EST - 2021 11:59 PM EST Hospital Encounter [place] [phone] Joseph Denise MD [facility] [address] T3 thyrotoxicosis (TSH <0.01, noramal FT4 1.2, high FT3 5.6 02/03/21); high I-123 uptake 42% diffusely without nodule on 04/17/19; negative TRAb, TPO and TgAb; Vitamin D insufficiency; Low TSH level; T3 thyrotoxicosis Discharge Disposition: Home Social History Tobacco Use [...] Sig Dispensed Refills Start Date End Date ELDERBERRY FRUIT ORAL Take 2 capsules by mouth daily. With zinc and vit C famotidine (Pepcid) 20 mg Tablet Take 1 tablet by mouth 2 times daily. 30 tablet 12 07/09/2021 PARoxetine (Paxil) 30 mg Tablet Take 1 tablet by mouth every morning. 07/09/2021 cholecalciferol, Vitamin D3, (Vitamin D3) 1,000 unit Tablet Take 2,000 Units by mouth daily. 10/11/2022 documented as of this encounter Plan of Treatment Not on file documented as of this encounter Procedures Procedure Name Priority Date/Time Associated Diagnosis Comments NM I-123 THYROID IMAGING W UPTAKE - RADIOPHARM ADMIN Routine 2021 1:23 PM EST T3 thyrotoxicosis Vitamin D insufficiency Low TSH level documented in this encounter Results * NM I-123 Thyroid Imaging w Uptake Radiopharm Admin (2021 1:23 PM EST) Narrative RIMA GOULD - 2021 1:24 PM EST This exam is auto-finalizing. It is for billing only. See paired order for result. Joseph Denise MD IMG NM ORDERABLES [place], [place] documented in this encounter Visit Diagnoses Diagnosis T3 thyrotoxicosis (TSH <0.01, noramal FT4 1.2, high FT3 5.6 02/03/21); high I-123 uptake 42% diffusely without nodule on 04/17/19; negative TRAb, TPO and TgAb Thyrotoxicosis without mention of goiter or other cause, without mention of thyrotoxic crisis or storm Vitamin D insufficiency Unspecified vitamin D deficiency Low TSH level Nonspecific abnormal results of thyroid function study documented in this encounter Administered Medications Inactive Administered Medications - up to 3 most recent administrations Medication Order MAR Action Action Date Dose Rate Site iodine I-123 diagnostic capsule 0-6 mCi 0-6 mCi, Oral, ONCE PRN, 1 dose, Starting on Sun08/02/21 at 1323, Until Sun08/02/21 at 1315, Per Protocol, Radiology Contrast, Routine Given 2021 1:15 PM EST 0.2 mCi documented in this encounter Care Teams Database Management System Specialist Relationship Specialty Start Date End Date Leora Delong, DIRECTOR OF RESEARCH AND DEVELOPMENT [address] [place] [address] [address] [place] [address] PCP - General Family Medicine 04/06/21 03/03/22 documented as of this encounter
--- OUTSIDE RECORDS SUMMARY | 2024-02-08 17:21 | XMS_ITS | Encounter Summary ---
[place] [address] Care Team Providers Care Fire Management Specialist Name Role Phone Mark Bowers MD Primary Care Provider Encounter Details Date Type Department Care Team (Late st Contact Info) Description 08/22/2018 8:53 AM EDT - 08/22/2018 11:59 PM EDT Hospital Encounter Mammography/[place] [address] Mark Bowers MD [address] [place] [address] Encounter for screening mammogram for breast cancer [...] MAMMO SCREENING CAD AND POLA BILATERAL Routine 08/22/2018 9:37 AM EDT Encounter for screening mammogram for breast cancer documented in this encounter Results * Mammo Screening Cad and Pola Bilateral (08/22/2018 9:37 AM EDT) Anatomical Region Laterality Modality Breast Bilateral Mammography Narrative 08/22/2018 10:36 AM EDT Bilateral mammography Reason for exam: [place] [facility] [place]ique: CC and MLO views were obtained of each breast using standard 2-D mammography as well as 3-D tomosynthesis. Computer aided detection was used. Comparison: This is compared with prior images. Findings: The breasts are heterogeneously dense, which may obscure small masses. There are no suspicious microcalcifications, masses, or areas of distortion. The pattern is stable. Stable and benign-appearing focal asymmetries bilaterally. Conclusion: No mammographic evidence of malignancy. Recommendation: Routine screening. BI-RADS Category 2: Benign findings. * ??The [employer] [employer] and The Society of Breast Imaging recommend annual screening beginning at age 40 for the general female population. * ??Screening should continue as long as a woman is in good health and is expected to live 10 more years or longer. * ??All women should be familiar with the known benefits, limitations, and potential harms linked to breast cancer screening. They also should know how their breasts normally look and feel and report any breast changes to a health care provider right away. * ??Some women, because of their family history, a genetic tendency, or certain other factors, should be screened with MRIs along with mammograms. (The number of women who fall into this category is very small.) The patient and health care provider should discuss the patient history and decide if earlier screening and breast MRI are appropriate. Thank you for letting us participate in the care of this patient. For questions regarding this report, please contact the number below. ? Mark Bowers MD IMG MAMMO ORDERABLES documented in this encounter Visit Diagnoses Diagnosis Encounter for screening mammogram for breast cancer documented in this encounter Care Teams Fire Management Specialist Relationship Specialty Start Date End Date Mark Bowers MD [address] [place] [address] PCP - General Family Medicine 07/20/17 04/05/21 documented as of this encounter
--- OUTSIDE RECORDS SUMMARY | 2024-02-08 17:21 | XMS_ITS | Encounter Summary ---
[place] [address] Care Team Providers Care Registered Nurse Practitioner Name Role Phone None Primary Care Provider Unavailabl e Encounter Details Date Type Department Care Team (Latest Contact Info) Description 08/10/2023 Travel Social History Tobacco Use Types Packs/Day Years [...] on filedocumented in this encounter Care Teams Registered Nurse Practitioner Relationship Specialty Start Date End Date None None PCP - General 10/11/22 documented as of this encounter
--- OUTSIDE RECORDS SUMMARY | 2024-02-08 17:21 | XMS_ITS | Encounter Summary ---
[place] [address] Care Team Providers Care Scientific Publications Editor Name Role Phone Maribell Bonner MD Primary Care Provider Reason for Visit * Reason Onset Date Comments Medication Refill 12/05/2010 Encounter Details Date Type Department Care Team (Late st Contact Info) Description 12/05/2010 Refill [place] [address] Ann Rock MD [facility] [place] [address] GERD (gastroesophageal reflux disease) Social History Tobacco Use Types Packs/Day Years Used Date Smoking Tobacco: Never Assessed Sex and Gender Information Value Date Recorded Sex Assigned at Not on file Gender Identity Not on file Sexual Orientation Not on file documented as of this encounter Plan of Treatment Not on file documented as of this encounter Visit Diagnoses Diagnosis GERD (gastroesophageal reflux disease) Esophageal reflux documented in this encounter Care Teams Scientific Publications Editor Relationship Specialty Start Date End Date Maribell Bonner MD [address] [place] [address] PCP - General 05/03/10 01/26/14 documented as of this encounter
--- OUTSIDE RECORDS SUMMARY | 2024-02-08 17:21 | XMS_ITS | Clinical Summary ---
Author Organization [facility] Address [address] [place] [address] Care Team Providers Care Clinical Asst Name Role Phone Maribell Bonner MD Primary Care Provider Encounters Date Type Department Care Team Description 11/22/2023 Lab Requisition [facility] Pathology & Laboratory Medicine - [facility] [address] [place] [address] Olinda Salcedo MD Encounter for other general examination from Last 3 Months Social History Tobacco Use Types Packs/Day Years Used Date Smoking Tobacco: Never Assessed Interpersonal Safety Answer Date Record ed Physically Hurt Never 01/11/2020 Verbally Threaten Not on file 01/11/2020 Sex and Gender Information Value Date Recorded Sex Assigned at Not on file Gender Identity Not on file Sexual Orientation Not on file Plan of Treatment Health Maintenance Due Date Last Done Comments Hepatitis C Screen 1960 RSV Immunization ( o r 60+ Years) (1 - 1-dose 60+ series) 2020 COVID-19 Vaccine ( season) 2023 Procedures Procedure Name Priority Date/Time Associated Diagnosis Comments PAP TEST Today 11/21/2023 15:30 EDT Encounter for other general examination HPV DNA DETECTION WITH GENOTYPING, PCR Today 11/21/2023 15:30 EDT Encounter for other general examination from Last 3 Months Results * PAP TEST (11/21/2023 15:30 EDT) Specimens A. Cervix and/or Endocervix , ThinPrep Imaging System with Manual Evaluation 11/27/2023 18:40 EDT [facility] Specimen Adequacy Satisfactory for Evaluation - transformation zone component present 11/27/2023 18:40 EDT [facility] General Categorization Negative for intraepithelial lesion or malignancy 11/27/2023 18:40 EDT [facility] Attestation . 11/27/2023 18:40 EDT [facility] at 1840 Clinical History SEE BELOW 11/27/19 24 18:40 EDT [facility] HPV The result for the Human Papillomavirus (HPV) Detection-High Risk Types is Negative. No E6 or E7 mRNA is detected from HPV types 16,18,31,33,35,39 ,45,51,52,56,58,5 9,66, and 68 by archeologist classical mediated amplification.Gerri ting was performed on specimen [id number] and was resulted on 11/27/2023 1840 EDT by MADHURI, LAB INSTRUMENT RESULTS IN 11/27/2023 18:40 EDT [facility] Performing Lab [facility] 11/27/2023 18:40 EDT [facility] Scanned Images 11/27/2023 18:40 EDT [facility] Pap Test CERVIX UTERI STRUCTURE / Unknown 11/21/2023 15:30 EDT 11/22/2023 14:45 EDT Olinda Salcedo MD PATHOLOGY ORDERABLES [facility] [address] [place] [id number] * HUMAN PAPILLOMAVIRUS (HPV) DETECTION-HIGH RISK TYPES (11/21/2023 15:30 EDT) HPV other High Risk types, PCR Negative Negative 11/27/2023 18:40 EDT [facility] Comment:No E6 or E7 mRNA is detected from HPV types 16,18,31,33,35,39,45,51,52,56,58,59,66, and 68 by archeologist classical mediated amplification. Pap Test CERVIX UTERI STRUCTURE / Unknown 11/21/2023 15:30 EDT 11/27/2023 11:59 EDT Olinda Salcedo MD MICROBIOLOGY - GENER AL ORDERABLES [facility] [address] [place], [place] [address] from Last 3 Months Care Teams Clinical Asst Relationship Specialty Start Date End Date Maribell Bonner MD [address] [place], [place] [address] PCP - General 06/07/09
--- OUTSIDE RECORDS SUMMARY | 2024-02-08 17:21 | XMS_ITS | Encounter Summary ---
Author Organization [facility] Address [facility] [place] [address] Care Team Providers Care Sight Effects Specialist Name Role Phone Maribell Bonner MD Primary Care Provider [phone] Encounter Details Date Type Department Care Team (Late st Contact Info) Description 08/17/2010 10:00 AM [facility] Follow-[place] [address] Ann Rock MD [facility] [place] [address] Discharge Disposition: Home Social History Tobacco Use [...] on filedocumented in this encounter Care Teams Sight Effects Specialist Relationship Specialty Start Date End Date Maribell Bonner MD [address] [place] [address] PCP - General 05/03/10 01/26/14 documented as of this encounter
--- OUTSIDE RECORDS SUMMARY | 2024-02-08 17:21 | XMS_ITS | Encounter Summary ---
[place] [address] Care Team Providers Care Management Nurse Rn Name Role Phone Willian Duncan MD Primary Care Provider [phone] Encounter Details Date Type Department Care Team (Latest Contact Info) Description 01/27/2014 8:54 AM EDT - 01/27/2014 11:59 PM EDT Hospital Encounter [place] [address] CLINIC, Willian Lomeli MD [address] [place], [place] [id number] Discharge Disposition: Home Social History Tobacco Use [...] Diagnosis Comments MAMMO SCREENING CAD BILATERAL Routine 01/27/2014 9:26 AM EDT documented in this encounter Results * Mammo digital bilateral Screening with CAD (01/27/2014 9:26 AM EDT) Anatomical Region Laterality Modality Breast Bilateral Mammography 01/27/2014 9:26 AM EDT Narrative 01/28/2014 1:08 PM EDT BILATERAL MAMMOGRAPHY ?? REASON FOR EXAM: Screening ?? TECHNIQUE: Cranio-caudal (CC) and mediolateral oblique (MLO) views of both breasts obtained with direct digital capture. The exam was evaluated by CAD Version 8.3.17. In addition to the routine 2D imaging this exam was also performed with 3D tomographic imaging in MLO and CC projections. ?? FINDINGS: This is a negative mammogram (ACR Category 1). There is a stable fibroglandular pattern without significant change as compared to prior studies. There is no mammographic evidence of cancer. ? The breasts are of scattered density. ? A biopsy marker clip is present in the Left breast. ? CONCLUSION ?? This is a NEGATIVE mammogram (ACR Category 1). Routine screening mammography is recommended with the frequency dependent on the patient's age and breast cancer risk factors. ?? A letter has been sent to this patient by the [facility]. Procedure Note Sandra Arceo MD - 01/28/2014 BILATERAL MAMMOGRAPHY REASON FOR EXAM: Screening TECHNIQUE: Cranio-caudal (CC) and mediolateral oblique (MLO) views of both breasts obtained with direct digital capture. The exam was evaluated byCAD Version 8.3.17. In addition to the routine 2D imaging this exam was also performed with 3D tomographic imaging in MLO and CC projections. FINDINGS: This is a negative mammogram (ACR Category 1). There is a stable fibroglandular pattern without significant change as compared to priorstudies. There is no mammographic evidence of cancer. The breasts are of scattered density. A biopsy marker clip is present in the Left breast. CONCLUSION This is a NEGATIVE mammogram (ACR Category 1). Routine screeningmammography is recommended with the frequency dependent on the patient's age and breastcancer risk factors. A letter has been sent to this patient by the [facility]. Willian Duncan MD IMG MAMMO ORDERABLES documented in this encounter Visit Diagnoses Not on filedocumented in this encounter Care Teams Management Nurse Rn Relationship Specialty Start Date End Date Willian Duncan MD [address] [place] [address] PCP - General 01/27/14 2 documented as of this encounter
--- OUTSIDE RECORDS SUMMARY | 2024-02-08 17:21 | XMS_ITS | Encounter Summary ---
Author Organization [facility] [place] [address] Care Team Providers Care Client Account Assistant Name Role Phone None Primary Care Provider Unavailabl e Reason for Visit * Reason Comments Medication Refill Encounter Details Date Type Department Care Team (Late st Contact Info) Description 01/31/2024 [place] [id number] Joseph Denise MD [facility] [place] [address] Social History Tobacco Use Types Packs/Day Years [...] on filedocumented in this encounter Care Teams Client Account Assistant Relationship Specialty Start Date End Date None None PCP - General 10/11/22 documented as of this encounter
--- OUTSIDE RECORDS SUMMARY | 2024-02-08 17:21 | XMS_ITS | Encounter Summary ---
[place] [address] Care Team Providers Care Product Management Specialist Name Role Phone Maribell Bonner MD Primary Care Provider Encounter Details Date Type Department Care Team (Late st Contact Info) Description 07/28/2010 1:33 PM EST - 07/28/2010 11:59 PM [facility] Hospital Encounter [facility] Maribell Bonner MD [address] [place] [address] Discharge Disposition: Home Social History Tobacco Use [...] on filedocumented in this encounter Care Teams Product Management Specialist Relationship Specialty Start Date End Date Maribell Bonner MD [address] [place] [address] PCP - General 05/03/10 01/26/14 documented as of this encounter
--- OUTSIDE RECORDS SUMMARY | 2024-02-08 17:21 | XMS_ITS | Encounter Summary ---
[place] [address] Care Team Providers Care Product Marketing Engineer Name Role Phone Leora Delong APRN Primary Care Provider + [phone] Reason for Referral * Diagnostic Test (Routine) - Closed Specialty Diagnoses / Procedures Referred By Contac t Referred To Contact Radiology Diagnoses T3 thyrotoxicosis Vitamin D insufficiency Low TSH level Procedures NM I-123 Thyroid Imaging w Uptake Radiopharm Admin Joseph Denise MD [facility] [place] [address] [place] [address] Referral ID Status Reason Start Date Expiration Date V isits Requested Visits Authorized [id number] Closed Specialty Service Requested 2021 06/10/2022 1 1 * Diagnostic Test (Routine) - Closed Specialty Diagnoses / Procedures Referred By Contac t Referred To Contact Radiology Diagnoses T3 thyrotoxicosis Vitamin D insufficiency Low TSH level Procedures NM I-123 Thyroid Imaging w Uptake Joseph Denise MD [facility] [address] [place] [address] Referral ID Status Reason Start Date Expiration Date V isits Requested Visits Authorized [id number] Closed Specialty Service Requested 08/03/2021 06/10/2022 1 1 Reason for Visit * Consultation (Routine) - Closed Specialty Diagnoses / Procedures Referred By Contac t Referred To Contact Endocrinology Diagnoses Other specified abnormal findings of blood chemistry LOW TSH Leora Delong, SENIOR INFORMATION SYSTEMS ARCHITECT [address] [place] [address] [facility] [address] [place] [id number] Referral ID Status Reason Start Date Expiration Date V isits Requested Visits Authorized [id number] Closed Consult, Test & Treat Connection Center PCP Updated and/or Approved 03/28/2021 03/28/2022 6 6 Encounter Details Date Type Department Care Team (Latest Contact Info) Description 07/11/2021 4:00 PM EST Office [place] [address] Joseph Denise MD [facility] [place] [address] T3 thyrotoxicosis (TSH <0.01, noramal FT4 1.2, high FT3 5.6 02/03/21); high I-123 uptake 42% diffusely without nodule on 04/17/19; negative TRAb, TPO and TgAb; Vitamin D insufficiency; Low TSH level Social History Tobacco Use Types Packs/Day Years [...] on file documented as of this encounter Last Filed Vital Signs Vital Sign Reading Time Taken Comments Blood Pressure 125/89 07/11/2021 3:52 PM EST Pulse 78 07/11/2021 3:52 PM EST Temperature 36.3 ??C (97.3 ??F) 07/11/2021 3:52 PM ES T Respiratory Rate - - Oxygen Saturation 100% 07/11/2021 3:52 PM EST Inhaled Oxygen Concentration - - Weight 78 kg (172 lb) 07/11/2021 3:52 PM EST Height 163.8 cm (5' 4.5) 07/11/2021 3:52 PM EST Body Mass Index 29.07 07/11/2021 3:52 PM EST documented in this encounter Patient Instructions * Patient Instructions* Joseph Denise MD - 07/11/2021 4:00 PM EST Addendum: lab after the visit showed T3 thyrotoxicosis Recent Results (from the past 24 hour(s)) Vitamin D, 25-Hydroxy Result Value Ref Range 25-OH Vit D Total 36 21 - 100 ng/mL 25-OH Vit D Interp Sufficient T3 Total Result Value Ref Range T3, Total 175 80 - 200 ng/dL T4, free Result Value Ref Range Free T4 1.53 0.93 - 1.70 ng/dL TSH Result Value Ref Range TSH <0.01 (L) 0.27 - 4.20 mcIU/mL T3, free Result Value Ref Range T3, Free 5.2 (H) 2.0 - 4.4 pg/mL PLAN: 1. Medication: Patient may need to start taking propanolol-LA 60 mg qd or bid p.r.n. if she starts to experience symptoms of palpitations and tremor as it can help reduce the adrenergic response enhanced by hyperthyroidism. Patient will continue all other medications, healthy diet and execise regularly. 2. To eat low iodine diet and info on diet list was given and explained today. She can search for more detailed list of low iodine diet on the website as well. 3. Lab: check lab today for TSH, FT3, FT4, T3, TSI, and 25vitamin D 4. X-ray/Imaging study: Office thyroid ultrasound today as mentioned above I-123 Thyroid nuclear scan and uptake soon 5. RTC: after completion of the 24h uptake scan on the same day for further management. Ok to add to see me after thyroid nuclear scan and uptake is done soon (same day to save her trip to [facility]) 6. Patient info on hyperthyroidism was given and discussed in details today. JOSEPH DENISE MD documented in this encounter Progress Notes * Joseph Denise MD - 07/11/2021 4:00 PM EST Endocrinology Consultation Date of Visit: 07/11/2021 Patient: Name: Althea Vargas :1960 PCP: Leora Delong APRN Althea Vargas is a 60 y.o.\ female seen in consultation in the Endocrine clinic at the request of Dr. Leora Delong APRN for: hyperthyroidism with persistently low TSH and lately elevated T3 c/w T3 toxicosis. Patient's previous record as are the lab results are reviewed. HISTORY OF PRESENT ILLNESS: Althea Vargas is a very pleasant 60 y.o. female who presents for evaluation of hyperthyroidism with low TSH with normal FT4 since 2019. She used to have thyroid nuclear scan and uptake on 06/16/18-06/17/18 which showed high uptake 42% at 24h without hot nodules. Follow-up lab tests showed persistently suppressed TSH <0.01 with normal FT4 but recently high Free T3 at 5.6 on 02/03/21. She noted some wt loss of 10 lbs over 3 months from 182 last Oct to 172 lbs now but contributed this to better diet control. Also some more fatigue with anxiety and occasional insomnia requiring treatment using Paxil 30 mg daily lately. No palpitations or loose stools. Patient denies excessive iodine intake or recent iodine contrast administration and not taking OTC-biotin or any medication that will cause hyperthyroid. Patient has FH of thyroid problem in her daughter who is an RN at [employer]. Recent labs prior to Endocrine consultation: Date 03/30/20 10/28/20 02/03/21 TSH 0.00 <0.01 <0.01 FT4 1.24 1.31 1.21 T3 - - 5.6H TRAb Negative TPOAb Negative TgAb Negative Ca 9.1 TC/LDL 224H/150H TG/HDL 47/65 B12 405 CMP Normal Fatigue - Yes Irritability/nervousness - Yes Muscle weakness/tremors - no Weight loss - Yes, down 10 lbs from 182 to 172 lbs in 3 mo since Mar 2021 Sleep disturbances - Some insomnia Vision/eye problems - no Heat sensitivity - no Increased appetite - no Clammy skin - no Palpitations - no Menstrual irregularities - Already menopause Globus sensation - no Difficulty swallowing - no Difficulty breathing - no Hoarseness or voice change - No REVIEW OF SYSTEMS: as per HPI, all other systems reviewed and negative. PAST MEDICAL HISTORY Patient Active Problem List: T3 thyrotoxicosis (TSH <0.01, noramal FT4 1.2, high FT3 5.6 02/03/21); high I-123 uptake 42% diffusely without nodule on 04/17/19; negative TRAb, TPO and TgAb [E05.90] Familial hypercholesterolemia [E78.01] Gastroesophageal reflux, hemorrhoid [K21.9] Pap smear abnormality of cervix/human papillomavirus (HPV) positive 2018 [R87.618] Elevated blood pressure reading without diagnosis of hypertension [R03.0] Adult BMI 31.0-31.9 kg/sq m [Z68.31] Anxiety and depression [F41.9] Family history of colon cancer (mother) and breast cancer (sister) [Z80.0] 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 With zinc and vit C, Disp: , Rfl: No current facility-administered medications on file prior to visit. Allergy: No Known Allergies Social History Socioeconomic History Marital status: Spouse name: None Number of children: None Years of education: None Highest education level: None Occupational History None Tobacco Use Smoking status: Former Smoker Smokeless tobacco: Never Used Tobacco comment: quit at age 43 Substance and Sexual Activity Alcohol use: Yes Alcohol/week: 2.0 standard drinks Types: 2 Glasses of wine per week Comment: 0-2 glasses of wine per day Drug use: Never Sexual activity: Not Currently Partners: Male control/protection: Post-menopausal PHYSICAL EXAM: BP 125/89 Pulse 78 Temp 36.3 ??C (97.3 ??F) Ht 163.8 cm (5' 4.5) Wt 78 kg (172 lb) SpO2 100% BMI 29.07 kg/m?? GENERAL: Well nourished, well hydrated, in no distress, oriented x 3 SKIN: normal in texture and temperature EYES: no thyroid eye signs, SANDRA, cornea normal NECK: supple, no palpable nodule or goiter, no bruit, no tenderness, no adenopathies CVS: S1 S2, rhythm regular, no murmur RS: clear breath sounds bilateral ABD: soft, ND, NT EXTREMITIES: No clubbing, no edema, no tremor. NEURO: normal strength, slightly brisk reflexes Office Thyrid Ultrasound at visit at initial consultation: Date: 07/11/21 Indication: Hyperthyroidism r/o nodule and to check baseline gland size and vascularity Procedure: Using real-time ultrasonography limited to the thyroid gland, longitudinal and transverse images with and without color doppler were obtained of both lobes and isthmus The right lobe measures 5.0x1.4x1.9 cm The left lobe measures 5.9x1.2x1.7 cm Isthmus thickness 0.2 cm The overall thyroid gland is mildly enlarged and filled with numerous small mixed solid/cystic thyroid nodules bilaterally with slightly increased vascularity in the nodular areas. - The largest mixed cystic thyroid nodule in the right mid lobe measures 1.6x1.0x1.2 cm with mostlycystic component. - The left lobe nodules are aggregated together and look like conglomerated mixed nodular area in the left upper lobe of 1.2x1.0x2.4 cm with increased vascularity - all other nodules are scattered and small <1 cm and spongiform with benign appearance. Impression: Multinodular thyroid gland with numerous small mixed hypervascular nodules identified bilaterally. 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 Rec: Recheck lab for TSH, FT4 and T3 today If pt remains hyperthyroid, will arrange for thyroid nuclear scan and uptake in preparation for I-131 therapy for toxic MNG Joseph Denise MD, PhD, FACE, FACP Addendum: lab after the visit showed T3 thyrotoxicosis Recent Results (from the past 24 hour(s)) Vitamin D, 25-Hydroxy Result Value Ref Range 25-OH Vit D Total 36 21 - 100 ng/mL 25-OH Vit D Interp Sufficient T3 Total Result Value Ref Range T3, Total 175 80 - 200 ng/dL T4, free Result Value Ref Range Free T4 1.53 0.93 - 1.70 ng/dL TSH Result Value Ref Range TSH <0.01 (L) 0.27 - 4.20 mcIU/mL T3, free Result Value Ref Range T3, Free 5.2 (H) 2.0 - 4.4 pg/mL DIAGNOSIS: 60 y.o. lady with hyperthyroidism (subclinical ->T3 thyrotoxicosis), most likely due to toxic MNG with numerous thyroid nodules throughout the thyroid on office thyroid ultrasound findings at initial consultation visit today. Previous thyroid autoantibodies were all negative for TRAb, TPO and TgAb so we will check TSI Ab today as well to definitely rule out Grave's disease in the setting of MNG. Previous thyroid nuclear scan and uptake in Apr 2019 showed increased uptake 42% at 24h without distinct hot nodule seen. She is mildly symptomatic with wt loss, some more anxiety and fatigue but denies palpitations, tremor, diarrhea or hyperadrenergic symptoms. We will recheck lab today and if she remains hyperthyroid, we will arrange for I-123 thyroid nuclear scan and uptake in preparation for I-131 therapy for her toxic MNG to help destroy the hot nodules and keep her euthyroid as a definitive therapy than simply using anti- thyroid medication to keep thyroid function back to normal but the nodules are still there. Surgery is not indicated in her case with only mild goiter without any pressure symptoms and still early stage of hyperthyroid. PLAN: 1. Medication: Patient may need to start taking propanolol-LA 60 mg qd or bid p.r.n. if she starts to experience symptoms of palpitations and tremor as it can help reduce the adrenergic response enhanced by hyperthyroidism. Patient will continue all other medications, healthy diet and execise regularly. 2. To eat low iodine diet and info on diet list was given and explained today. She can search for more detailed list of low iodine diet on the website as well. 3. Lab: check lab today for TSH, FT3, FT4, T3, TSI, and 25vitamin D 4. X-ray/Imaging study: Office thyroid ultrasound today as mentioned above I-123 Thyroid nuclear scan and uptake soon 5. RTC: after completion of the 24h uptake scan on the same day for further management. *Ok to add to see me while I am on-call right after thyroid nuclear scan and uptake soon (same day to save her trip to [facility]) 6. Patient info on hyperthyroidism was given and discussed in details today. We have reviewed our plan outlined above with the patient, and patient verbalized understanding. All questions were answered and most of the time was spent on counseling about thyroid conditions, medications and low iodine diet, including pros and cons of using medication vs surgery (not indicated in her case with mild goiter without pressure symptoms), the diagnostic and therapeutic decisions, and coordination of care. Thank you for allowing me to participate in the care of this very pleasant patient. Joseph Denise MD, PhD, FACE, FACP cc: Leora Delong APRN * Joseph Denise MD - 07/11/2021 4:00 PM EST Office Thyrid Ultrasound Name: Althea Vargas : 1960 PCP: Leora Delong APRN Date: 07/11/21 Indication: Hyperthyroidism r/o nodule and to check baseline gland size and vascularity Procedure: Using real-time ultrasonography limited to the thyroid gland, longitudinal and transverse images with and without color doppler were obtained of both lobes and isthmus The right lobe measures 5.0x1.4x1.9 cm The left lobe measures 5.9x1.2x1.7 cm Isthmus thickness 0.2 cm The overall thyroid gland is mildly enlarged and filled with numerous mixed solid/cystic thyroid nodules bilaterally with slightly increased vascularity in the nodular areas. - The largest mixed cystic thyroid nodule in the right mid lobe measures 1.6x1.0x 1.2 cm with mostly cystic component. - The left lobe nodules in the upper lobe are aggregated together and look like a conglomerated mixed nodular area of 1.2x1.0x2.4 cm with increased vascularity. - all other nodules scattered throughout the thyroid are small <1 cm and spongiform with benign appearance. Impression: Multinodular thyroid gland with numerous small mixed hypervascular nodules bilaterally. In the presence of hyperthyroid with TSH <0.01 and high T3 last Jan 2021, this is likely due to toxic multinodular goiter. Rec: Recheck lab for TSH, FT4 and T3 today If pt remains hyperthyroid, will arrange for thyroid nuclear scan and uptake in preparation for I-131 therapy for toxic MNG Joseph Denise MD, PhD, FACE, FACP * Joseph Denise MD - 07/11/2021 4:00 PM EST Brant Howell, Please let pt know that lab after the visit showed that she remains hyperthyroid with suppressed TSH <0.01, so we will arrange for I-123 thyroid nuclear scan and uptake at [facility] as planned & add her to see me right after thyroid nuclear scan and uptake soon (same day to save her trip to [facility]). Our secretaries will help coordinate the nuclear scan and FU visit with me and let her know directly too. (Ok to add to see me while I am on-call on the week of Jul 25). Thanks! JOSEPH DENISE MD documented in this encounter Plan of Treatment Not on file documented as of this encounter Procedures Procedure Name Priority Date/Time Associated Diagnosis Comments HC TSI Routine 07/11/2021 5:27 PM EST T3 thyrotoxicosis (TSH <0.01, noramal FT4 1.2, high FT3 5.6 02/03/21); high I-123 uptake 42% diffusely without nodule on 04/17/19; negative TRAb, TPO and TgAb Vitamin D insufficiency HC VITAMIN D TOTAL-25 HYDROXY Routine 07/11/2021 5:27 PM EST T3 thyrotoxicosis (TSH <0.01, noramal FT4 1.2, high FT3 5.6 02/03/21); high I-123 uptake 42% diffusely without nodule on 04/17/19; negative TRAb, TPO and TgAb Vitamin D insufficiency T3, FREE Routine 07/11/2021 5:27 PM EST T3 TOTAL Routine 07/11/2021 5:27 PM EST T3 thyrotoxicosis (TSH <0.01, noramal FT4 1.2, high FT3 5.6 02/03/21); high I-123 uptake 42% diffusely without nodule on 04/17/19; negative TRAb, TPO and TgAb Vitamin D insufficiency HC THYROID STIMULATING HORMONE, SERUM Routine 07/11/2021 5:27 PM EST T3 thyrotoxicosis (TSH <0.01, noramal FT4 1.2, high FT3 5.6 02/03/21); high I-123 uptake 42% diffusely without nodule on 04/17/19; negative TRAb, TPO and TgAb Vitamin D insufficiency HC FREE THYROXINE (T4) Routine 07/11/2021 5:27 PM EST T3 thyrotoxicosis (TSH <0.01, noramal FT4 1.2, high FT3 5.6 02/03/21); high I-123 uptake 42% diffusely without nodule on 04/17/19; negative TRAb, TPO and TgAb Vitamin D insufficiency documented in this encounter Results * T3 Total (09/23/2021 10:53 AM EDT) Pathologist [facility] T3 Total 82 80 - 200 ng/dL [facility] Blood 09/23/2021 10:5 3 AM EDT 09/23/2021 11:03 AM EDT Narrative Resulting Agency Comment Spec In Lab Joseph Denise MD CHEMISTRY ORDERAB LES [facility] [place] [address] * (ABNORMAL) T4, free (09/23/2021 10:53 AM EDT) Pathologist [facility] Free T4 0.82(L) 0.93 - 1.70 ng/dL [facility] Comment: Reference Interval (ng/dL): Females: ??First Trimester: 0.97-1.68 ??Second Trimester: 0.77-1.51 ??Third Trimester: 0.77-1.49 Blood 09/23/2021 10:5 3 AM EDT 09/23/2021 11:03 AM EDT Narrative Resulting Agency Comment Spec In Lab Joseph Denise MD CHEMISTRY ORDERAB LES Performing Organization Address [facility] Co de Phone Number [facility] [place] [address] * (ABNORMAL) TSH (09/23/2021 10:53 AM EDT) Thyroid Stimulating Hormone <0.01(L) 0.27 - 4.20 mcIU/mL [facility] Comment: Reference Interval (mcIU/mL): Females: ??First Trimester: 0.23-3.88 ??Second Trimester: 0.22-3.90 ??Third Trimester: 0.44-4.66 Blood 09/23/2021 10:5 3 AM EDT 09/23/2021 11:03 AM EDT Narrative Resulting Agency Comment Spec In Lab Joseph Denise MD CHEMISTRY ORDERAB LES Performing Organization Address [facility] Co de Phone Number [facility] [place] [address] * NM I-123 Thyroid Imaging w Uptake (08/03/2021 2:49 PM EST) Anatomical Region Laterality Modality Nuclear Medicine Impressions 08/03/2021 4:51 PM EST Findings are consistent with hyperthyroidism due to toxic multinodular goiter. I have personally reviewed the image(s) and the resident's interpretation and agree with the findings, Porfirio Stovall MD at 08/03/2021 4:51 PM Thank you for letting us participate in the care of this patient. ??If you are a health care provider and have any questions regarding this report, please contact the number below. ??For patients who have questions please contact the health resident care provider that requested your imaging first. ? Electronically signed by: Porfirio Stovall MD, [facility] ([phone]), at 08/03/2021 4:51 PM Narrative 08/03/2021 4:51 PM EST EXAMINATION: NM I-123 THYROID IMAGING W UPTAKE CLINICAL HISTORY: Hyperthyroid with numerous thyroid nodules bilaterally on office US - likely toxic MNG. Please do scan and uptake in preparation of I-131 therapy, (not on any thyroid medication and is on low iodine diet) Other Pertinent Information TECHNIQUE: I-123 was administered orally in a dose of 200 uCi. Twenty four hours later, probe uptake measurement of the thyroid was obtained. Images of the thyroid were obtained in the anterior and anterior oblique projections using a gamma camera with pinhole collimator. COMPARISON: None FINDINGS: Multinodular appearance of tracer uptake throughout both lobes of the thyroid, left lobe larger than right. ??No dominant cold or hot nodules. 24 hour radioactive iodine uptake is 44.2% (normal 10 - 25%) Procedure Note Porfirio Stovall MD - 08/03/2021 EXAMINATION: NM I-123 THYROID IMAGING W UPTAKE CLINICAL HISTORY: Hyperthyroid with numerous thyroid nodules bilaterallyon office US - likely toxic MNG. Please do scan and uptake in preparation ofI-131 therapy, (not on any thyroid medication and is on low iodine diet) Other Pertinent Information TECHNIQUE: I-123 was administered orally in a dose of 200 uCi. Twenty fourhours later, probe uptake measurement of the thyroid was obtained. Images ofthe thyroid were obtained in the anterior and anterior oblique projectionsusing a gamma camera with pinhole collimator. COMPARISON: None FINDINGS: Multinodular appearance of tracer uptake throughout both lobes of thethyroid, left lobe larger than right. No dominant cold or hot nodules. 24 hour radioactive iodine uptake is 44.2% (normal 10 - 25%) IMPRESSION Findings are consistent with hyperthyroidism due to toxic multinodulargoiter. I have personally reviewed the image(s) and the resident's interpretationand agree with the findings, Porfirio Stovall MD at 08/03/2021 4:51 PM Thank you for letting us participate in the care of this patient. If youare a health care provider and have any questions regarding this report,please contact the number below. For patients who have questions please contactthe health resident care provider that requested your imaging first. Electronically signed by: Porfirio Stovall MD, [facility]([phone]), at 08/03/2021 4:51 PM Joseph Denise MD [facility] NM ORDERABLES * NM I-123 Thyroid Imaging w Uptake Radiopharm Admin (2021 1:23 PM EST) Narrative RAD - 2021 1:24 PM EST This exam is auto-finalizing. It is for billing only. See paired order for result. Joseph Denise MD [facility] NM ORDERABLES Performing Organization Address [facility]/ZIP Co de Phone Number [place], [place] * (ABNORMAL) T3, free (07/11/2021 5:27 PM EST) Free T3 5.2(H) 2.0 - 4.4 pg/mL [facility] Blood Venous Draw / Unknown 07/11/2021 5:27 PM EST 07/11/2021 6:16 PM EST Narrative Resulting Agency Comment Spec In Lab Joseph Denise MD CHEMISTRY ORDERAB LES Performing Organization Address City/[facility]/ZIP Co de Phone Number [facility] [place] [address] * Vitamin D, 25-Hydroxy (07/11/2021 5:27 PM EST) Vitamin D Total 25 OH 36 21 - 100 ng/mL [facility] Vit D Interp Sufficient [facility] Blood 07/11/2021 5:27 PM EST 07/11/2021 5:59 PM EST Narrative Resulting Agency Comment Spec In Lab Joseph Denise MD CHEMISTRY ORDERAB LES Performing Organization Address City/[facility]/ZIP Co de Phone Number [facility] [place] [address] * Thyroid Stimulating Immunoglobulins (07/11/2021 5:27 PM EST) Pathologist [facility] Thyroid Stimulating Immunoglobulin <0.10 <=0.55 IU/L [facility] Blood 07/11/2021 5:27 PM EST 07/12/2021 6:46 AM EST Narrative Resulting Agency Comment Spec In Lab Joseph Denise MD IMMUNOLOGY ORDERA BLES Performing Organization Address City/[facility]/ZIP Co de Phone Number [facility] [place] [address] * T3 Total (07/11/2021 5:27 PM EST) Pathologist [facility] T3 Total 175 80 - 200 ng/dL [facility] Blood 07/11/2021 5:27 PM EST 07/11/2021 5:59 PM EST Narrative Resulting Agency Comment Spec In Lab Joseph Denise MD CHEMISTRY ORDERAB LES Performing Organization Address City/[facility] Co de Phone Number [facility] [place] [address] * T4, free (07/11/2021 5:27 PM EST) Pathologist [facility] Free T4 1.53 0.93 - 1.70 ng/dL [facility] Comment: Reference Interval (ng/dL): Females: ??First Trimester: 0.97-1.68 ??Second Trimester: 0.77-1.51 ??Third Trimester: 0.77-1.49 Blood 07/11/2021 5:27 PM EST 07/11/2021 5:59 PM EST Narrative Resulting Agency Comment Spec In Lab Joseph Denise MD CHEMISTRY ORDERAB LES Performing Organization Address [facility] Co de Phone Number [facility] [place] [address] * (ABNORMAL) TSH (07/11/2021 5:27 PM EST) Thyroid Stimulating Hormone <0.01(L) 0.27 - 4.20 mcIU/mL [facility] Comment: Reference Interval (mcIU/mL): Females: ??First Trimester: 0.23-3.88 ??Second Trimester: 0.22-3.90 ??Third Trimester: 0.44-4.66 Blood 07/11/2021 5:27 PM EST 07/11/2021 5:59 PM EST Narrative Resulting Agency Comment Spec In Lab Joseph Denise MD CHEMISTRY ORDERAB LES Performing Organization Address [facility] Co de Phone Number [facility] [place] [address] documented in this encounter Visit Diagnoses Diagnosis [...] Nonspecific abnormal results of thyroid function study T3 thyrotoxicosis (TSH <0.01, noramal FT4 1.2, high FT3 5.6 02/03/21); high I-123 uptake 42% diffusely without nodule on 04/17/19; negative TRAb, TPO and TgAb Thyrotoxicosis without mention of goiter or other cause, without mention of thyrotoxic crisis or storm Vitamin D insufficiency Unspecified vitamin D deficiency Low TSH level Nonspecific abnormal results of thyroid function study T3 thyrotoxicosis (TSH <0.01, noramal FT4 1.2, high FT3 5.6 02/03/21); high I-123 uptake 42% diffusely without nodule on 04/17/19; negative TRAb, TPO and TgAb Thyrotoxicosis without mention of goiter or other cause, without mention of thyrotoxic crisis or storm Vitamin D insufficiency Unspecified vitamin D deficiency Low TSH level Nonspecific abnormal results of thyroid function study documented in this encounter Care Teams Product Marketing Engineer Relationship Specialty Start Date End Date Leora Delong, SENIOR INFORMATION SYSTEMS ARCHITECT [address] [place] [address] PCP - General Family Medicine 04/06/21 03/03/22 documented as of this encounter
--- OUTSIDE RECORDS SUMMARY | 2024-02-08 17:21 | XMS_ITS | Encounter Summary ---
[place] [address] Care Team Providers Care Capacitor Inspector Name Role Phone Maribell Bonner MD Primary Care Provider Reason for Visit * Reason Onset Date Comments Medication Refill 11/25/2010 Encounter Details Date Type Department Care Team (Late st Contact Info) Description 11/25/2010 Refill [place] [address] Ann Rock MD [facility] [place] [address] GERD (gastroesophageal reflux disease) Social History Tobacco [...] reflux documented in this encounter Care Teams Capacitor Inspector Relationship Specialty Start Date End Date Maribell Bonner MD [address] [place] [address] PCP - General 05/03/10 01/26/14 documented as of this encounter
--- OUTSIDE RECORDS SUMMARY | 2024-02-08 17:21 | XMS_ITS | Encounter Summary ---
Author Organization [facility] Address [address] [place] [address] Care Team Providers Care Utility Bill Collection Clerk Name Role Phone Maribell Bonner MD Primary Care Provider [phone] Encounter Details Date Type Department Care Team (Late st Contact Info) Description 11/22/2023 Lab Requisition [facility] Pathology & Laboratory Medicine - [facility] [address] [place] [address] Olinda Salcedo MD [address] [place] [address],[address] [place], [place] [id number] Encounter for other general examination Social History [...] 15:30 EDT Encounter for other general examination documented in this encounter Results * HUMAN PAPILLOMAVIRUS (HPV) DETECTION-HIGH RISK TYPES (11/21/2023 15:30 EDT) HPV other High Risk types, PCR Negative Negative 11/27/2023 18:40 EDT [facility] Comment:No E6 or E7 mRNA is detected from HPV types 16,18,31,33,35,39,45,51,52,56,58,59,66, and 68 by computer help desk representative mediated amplification. Pap Test CERVIX UTERI STRUCTURE / Unknown 11/21/2023 15:30 EDT 11/27/2023 11:59 EDT Olinda Salcedo MD MICROBIOLOGY - GENER AL ORDERABLES [facility] [address] [place] [phone] * PAP TEST (11/21/2023 15:30 EDT) Specimens A. Cervix and/or Endocervix , ThinPrep Imaging System with Manual Evaluation 11/27/2023 18:40 EDT [facility] Specimen Adequacy Satisfactory for Evaluation - transformation zone component present 11/27/2023 18:40 [facility] General Categorization Negative for intraepithelial lesion or malignancy 11/27/2023 18:40 T [facility] Attestation . 11/27/2023 18:40 [facility] at 1840 Clinical History SEE BELOW 11/27/19 24 18:40 T [facility] HPV The result for the Human Papillomavirus (HPV) Detection-High Risk Types is Negative. No E6 or E7 mRNA is detected from HPV types 16,18,31,33,35,39 ,45,51,52,56,58,5 9,66, and 68 by computer help desk representative mediated amplification.Gerri ting was performed on specimen [id number] and was resulted on 11/27/2023 1840 EDT by MADHURI, LAB INSTRUMENT RESULTS IN 11/27/2023 18:40 T [facility] Performing Lab [facility] 11/27/2023 18:40 T [facility] Scanned Images 11/27/2023 18:40 T [facility] Pap Test CERVIX UTERI STRUCTURE / Unknown 11/21/2023 15:30 EDT 11/22/2023 14:45 EDT Olinda Salcedo MD PATHOLOGY ORDERABLES [facility] [address] [place] [address] documented in this encounter Visit Diagnoses Diagnosis Encounter for other general examination documented in this encounter Care Teams Utility Bill Collection Clerk Relationship Specialty Start Date End Date Maribell Bonner MD [address] [place] [id number] PCP - General 06/07/09 documented as of this encounter
--- OUTSIDE RECORDS SUMMARY | 2024-02-08 17:21 | XMS_ITS | Encounter Summary ---
[place] [address] Care Team Providers Care Distance Learning Administrator Name Role Phone Mark Bowers MD Primary Care Provider Encounter Details Date Type Department Care Team (Late st Contact Info) Description 02/20/2020 8:08 AM EDT - 02/20/2020 11:59 PM EDT Hospital Encounter Mammography/[place] [address] Mark Bowers MD [address] [place] [address] Encounter for screening mammogram for breast cancer [...] MAMMO SCREENING CAD AND POLA BILATERAL Routine 02/20/2020 9:12 AM EDT Encounter for screening mammogram for breast cancer documented in this encounter Results * Mammo Screening Cad and Pola Bilateral (02/20/2020 9:12 AM EDT) Anatomical Region Laterality Modality Breast Bilateral Mammography Narrative 02/20/2020 9:43 AM EDT BILATERAL MAMMOGRAPHY REASON FOR EXAM: Screening TECHNIQUE: CC and MLO views were obtained of each breast using standard 2-D mammography as well as 3-D tomosynthesis. Computer aided detection was used. This is compared with prior images. FINDINGS: ??The breasts are heterogeneously dense, which may obscure [...] cancer documented in this encounter Care Teams Distance Learning Administrator Relationship Specialty Start Date End Date Mark Bowers MD [address] [place] [address] PCP - General Family Medicine 07/20/17 04/05/21 documented as of this encounter
--- OUTSIDE RECORDS SUMMARY | 2024-02-08 17:21 | XMS_ITS | Encounter Summary ---
Author Organization [facility] [place] [address] Care Team Providers Care Transformer Maker Name Role Phone None Primary Care Provider Unavailabl e Reason for Visit * Reason Onset Date Comments Medication Refill 02/02/2023 Encounter Details Date Type Department Care Team (Late st Contact Info) Description 02/02/2023 [place] [address] Joseph Denise MD [facility] [place] [address] Social History Tobacco Use Types Packs/Day Years [...] encounter Miscellaneous Notes * Telephone Encounter - Wendi Shaw - 02/02/2023 1:47 PM EDT NAME OF MEDICATION AND DOSE: levothyroxine (Synthroid) 100 mcg Tablet - dose and frequency as stated in medication list. PHARMACY NAME:[id number] - [place], [place] - [phone] PHONE: [phone] Would patient like script sent directly to pharmacy? (Yes or no) yes Would patient like to greens picker paper script here at our office (Please put yes or no) no Would patient like paper script mailed to home address (Please put yes or no) no Patient will be out of medication on Sunday Caller/Patient aware of 1-2 business day process. documented in this encounter Plan of Treatment Not on file documented as of this encounter Visit Diagnoses Not on filedocumented in this encounter Care Teams Transformer Maker Relationship Specialty Start Date End Date None None PCP - General 10/11/22 documented as of this encounter
--- OUTSIDE RECORDS SUMMARY | 2024-02-08 17:21 | XMS_ITS | Encounter Summary ---
[place] [address] Care Team Providers Care Farmworker Chicken Farm Name Role Phone Leora Delong APRN Primary Care Provider [phone] Encounter Details Date Type Department Care Team (Latest Contact Info) Description 12/21/2021 9:55 AM EDT Laboratory Appointment Lab [address] [place] [phone] T3 thyrotoxicosis; Low TSH level; Multiple thyroid [...] Name Priority Date/Time Associated Diagnosis Comments HC TOTAL T3 Routine 12/21/2021 10:01 AM EDT T3 thyrotoxicosis Low TSH level Multiple thyroid nodules HC THYROID STIMULATING HORMONE, SERUM Routine 12/21/2021 10:01 AM EDT T3 thyrotoxicosis Low TSH level Multiple thyroid nodules HC FREE THYROXINE (T4) Routine 12/21/2021 10:01 AM EDT T3 thyrotoxicosis Low TSH level Multiple thyroid nodules documented in this encounter Results * (ABNORMAL) TSH (12/21/2021 10:01 AM EDT) Thyroid Stimulating Hormone 0.06(L) 0.27 - 4.20 mcIU/mL [facility] Comment: Reference Interval (mcIU/mL): Females: ??First Trimester: 0.23-3.88 ??Second Trimester: 0.22-3.90 ??Third Trimester: 0.44-4.66 Blood 12/21/2021 10:0 1 AM EDT 12/21/2021 10:10 AM EDT Narrative Resulting Agency Comment Spec In Lab Joseph Denise MD CHEMISTRY ORDERAB LES Performing Organization Address [facility] Co de Phone Number [facility] [place] [address] * T4, free (12/21/2021 10:01 AM EDT) Free T4 1.39 0.93 - 1.70 ng/dL [facility] Comment: Reference Interval (ng/dL): Females: ??First Trimester: 0.97-1.68 ??Second Trimester: 0.77-1.51 ??Third Trimester: 0.77-1.49 Blood 12/21/2021 10:0 1 AM EDT 12/21/2021 10:10 AM EDT Narrative Resulting Agency Comment Spec In Lab Joseph Denise MD CHEMISTRY ORDERAB LES Performing Organization Address [facility]/ZIP Co de Phone Number [facility] [place] [address] * (ABNORMAL) T3 Total (12/21/2021 10:01 AM EDT) T3 Total 66(L) 80 - 200 ng/dL [facility] Blood 12/21/2021 10:0 1 AM EDT 12/21/2021 10:10 AM EDT Narrative Resulting Agency Comment Spec In Lab Joseph Denise MD CHEMISTRY ORDERAB LES [facility] [place] [address] documented in this encounter Visit Diagnoses Diagnosis T3 thyrotoxicosis Thyrotoxicosis without mention of goiter or other cause, without mention of thyrotoxic crisis or storm Low TSH level Nonspecific abnormal results of thyroid function study Multiple thyroid nodules Nontoxic multinodular goiter documented in this encounter Care Teams Farmworker Chicken Farm Relationship Specialty Start Date End Date Leora Delong APRN [address] [place] [address] PCP - General Family Medicine 04/06/21 03/03/22 documented as of this encounter
--- OUTSIDE RECORDS SUMMARY | 2024-02-08 17:21 | XMS_ITS | Encounter Summary ---
Author Organization [facility] [address] [place] [address] Care Team Providers Care Fire Patrol Name Role Phone None Primary Care Provider Unavailabl e Encounter Details Date Type Department Care Team (Late st Contact Info) Description 08/20/2023 Telephone [place] [phone] Bhumi Wallace RN Social History Tobacco Use Types Packs/Day Years [...] encounter Miscellaneous Notes * Telephone Encounter - Bhumi Wallace RN - 08/21/2023 12:25 PM EDT Called pt back and gave her test results. She wants to stay on her current dose of LT4. * Telephone Encounter - Bhumi Wallace RN - 08/20/2023 10:53 AM EDT Copied from CRM #[id number]. Topic: Specialty Dept CRMs - Test Results >> Aug 20, 2023 10:01 AM Wendi Garcia wrote: Test Results Request Specialist: Camelia Relationship (if other than patient-full name): self Ordering Provider: Camelia Type of Test: TSH Date of Test: 08/10/2023 Where Was This Test Performed: [facility] documented in this encounter Plan of Treatment Not on file documented as of this encounter Visit Diagnoses Not on filedocumented in this encounter Care Teams Fire Patrol Relationship Specialty Start Date End Date None None PCP - General 10/11/22 documented as of this encounter
--- OUTSIDE RECORDS SUMMARY | 2024-02-08 17:21 | XMS_ITS | Encounter Summary ---
Author Organization [facility] Address [facility] [place] [address] Care Team Providers Care Pc Maintenance Technician Name Role Phone Maribell Bonner MD Primary Care Provider [phone] Encounter Details Date Type Department Care Team (Latest Contact Info) Description 05/18/2010 3:30 PM EST Initial consult [place] [address] Ann Rock MD [facility] [place] [address] Discharge Disposition: Home Social History Tobacco Use [...] on filedocumented in this encounter Care Teams Pc Maintenance Technician Relationship Specialty Start Date End Date Maribell Bonner MD [address] [place] [address] PCP - General 05/03/10 01/26/14 documented as of this encounter
--- OUTSIDE RECORDS SUMMARY | 2024-02-08 17:21 | XMS_ITS | Encounter Summary ---
Author Organization [facility] [place] [address] Care Team Providers Care Assistant Professor Nurse Education Name Role Phone None Primary Care Provider Unavailabl e Encounter Details Date Type Department Care Team (Late st Contact Info) Description 08/03/2023 Telephone Endocrinology at [facility] [place] [phone] Tanisha Menard RN Social History Tobacco Use Types Packs/Day [...] encounter Miscellaneous Notes * Telephone Encounter - Tanisha Menard RN - 08/03/2023 12:23 PM EST Copied from [facility] #[id number]. Topic: Specialty Dept CRMs - Triage >> Aug 03, 2023 12:11 PM Cristi Wilson wrote: Triage Message Specialist: Camelia Relationship (if other than patient-full name): Althea Vargas - Self Symptom: Fatigue Has patient experienced symptom before: No If patient has experienced symptom before, when was the last time this occurred: N/A Is patient currently having symptom: Yes When did symptom begin: a few months ago Additional Comments: Patient has been having a lot of fatigue for the past few months and has been having to take a nap almost everyday. Patient is wondering if her thyroid levels are off and is curious if she needs labs done as well. Please call to discuss. documented in this encounter Plan of Treatment Not on file documented as of this encounter Visit Diagnoses Not on filedocumented in this encounter Care Teams Assistant Professor Nurse Education Relationship Specialty Start Date End Date None None PCP - General 10/11/22 documented as of this encounter
--- OUTSIDE RECORDS SUMMARY | 2024-02-08 17:21 | XMS_ITS | Encounter Summary ---
[place] [address] Care Team Providers Care Quality Control Auditor Name Role Phone Maribell Bonner MD Primary Care Provider [phone] Encounter Details Date Type Department Care Team (Late st Contact Info) Description 07/28/2010 2:00 PM EST Office Visit [facility] [address] [place] [address] Social History Tobacco Use Types Packs/Day Years Used Date Smoking Tobacco: Never Assessed Sex and Gender Information Value Date Recorded Sex Assigned at Not on file Gender Identity Not on file Sexual Orientation Not on file documented as of this encounter Plan of Treatment Not on file documented as of this encounter Visit Diagnoses Not on filedocumented in this encounter Care Teams Quality Control Auditor Relationship Specialty Start Date End Date Maribell Bonner MD [address] [place] [address] PCP - General 05/03/10 01/26/14 documented as of this encounter
--- OUTSIDE RECORDS SUMMARY | 2024-02-08 17:21 | XMS_ITS | Encounter Summary ---
[place] [address] Care Team Providers Care Experimental Assembler Name Role Phone None Primary Care Provider Unavailabl e Encounter Details Date Type Department Care Team (Latest Contact Info) Description 08/10/2023 9:15 AM EST Laboratory Appointment Lab at [facility] [address] [place] [address] Multiple thyroid nodules; Vitamin D insufficiency; Hypothyroidism, postradioiodine therapy Social History Tobacco Use Types Packs/Day Years [...] Procedure Name Priority Date/Time Associated Diagnosis Comments TSH Routine 08/10/2023 10:21 AM EST Multiple thyroid nodules Vitamin D insufficiency Hypothyroidism, postradioiodine therapy documented in this encounter Results * TSH (08/10/2023 10:21 AM EST) Thyroid Stimulating Hormone 0.36 0.27 - 4.20 mcIU/mL [facility] Comment: Reference Interval (mcIU/mL): Females: ??First Trimester: 0.23-3.88 ??Second Trimester: 0.22-3.90 ??Third Trimester: 0.44-4.66 Blood 08/10/2023 10:2 1 AM EST 08/10/2023 2:47 PM EST Narrative Resulting Agency Comment Spec In Lab Joseph Denise MD CHEMISTRY ORDERAB LES [facility] [place] [address] documented in this encounter Visit Diagnoses Diagnosis Multiple thyroid nodules Nontoxic multinodular goiter Vitamin D insufficiency Unspecified vitamin D deficiency Hypothyroidism, postradioiodine therapy Other postablative hypothyroidism documented in this encounter Care Teams Experimental Assembler Relationship Specialty Start Date End Date None None PCP - General 10/11/22 documented as of this encounter
--- OUTSIDE RECORDS SUMMARY | 2024-02-08 17:21 | XMS_ITS | Encounter Summary ---
Author Organization Count Includes [facility] [address] Care Team Providers Care Reeling Machine Setup Operator Name Role Phone Maribell Bonner MD Primary Care Provider [phone] Encounter Details Date Type Department Care Team (Late st Contact Info) Description 07/14/2010 9:00 AM EST Procedure [place] [address] Ann Rock MD [facility] [place] [address] Social History Tobacco Use Types Packs/Day Years Used Date Smoking Tobacco: Never Assessed Sex and Gender Information Value Date Recorded Sex Assigned at Not on file Gender Identity Not on file Sexual Orientation Not on file documented as of this encounter Plan of Treatment Not on file documented as of this encounter Visit Diagnoses Not on filedocumented in this encounter Care Teams Reeling Machine Setup Operator Relationship Specialty Start Date End Date Maribell Bonner MD [address] [place] [address] PCP - General 05/03/10 01/26/14 documented as of this encounter
--- OUTSIDE RECORDS SUMMARY | 2024-02-08 17:21 | XMS_ITS | Referral Summary ---
Author Organization [facility] Address [address] [place] [address] Care Team Providers Care Vp Of Global Marketing Name Role Phone Maribell Bonner MD Primary Care Provider [phone] Encounters Date Type Department Care Team Description 11/22/2023 Lab Requisition [facility] Pathology & Laboratory Medicine - [facility] [address] [place] [address] Olinda Salcedo MD Encounter for other general [...] Orientation Not on file Plan of Treatment Not on file Procedures Procedure Name Priority Date/Time Associated Diagnosis Comments PAP TEST Today 11/21/2023 15:30 EDT Encounter for other general examination HPV DNA DETECTION WITH GENOTYPING, PCR Today 11/21/2023 15:30 EDT Encounter for other general examination from Last 3 Months Results * PAP TEST (11/21/2023 15:30 EDT) Specimens A. Cervix and/or Endocervix , ThinPrep Imaging System with Manual Evaluation 11/27/2023 18:40 EDT [facility] Specimen Adequacy Satisfactory for Evaluation - transformation zone component present 11/27/2023 18:40 EDT [facility] General Categorization Negative for intraepithelial lesion or malignancy 11/27/2023 18:40 EDT [facility] Attestation . 11/27/2023 18:40 EDT [facility] at 1840 Clinical History SEE BELOW 11/27/19 24 18:40 EDT [facility] HPV The result for the Human Papillomavirus (HPV) Detection-High Risk Types is Negative. No E6 or E7 mRNA is detected from HPV types 16,18,31,33,35,39 ,45,51,52,56,58,5 9,66, and 68 by community engagement leader mediated amplification.Gerri ting was performed on specimen [id number] and was resulted on 11/27/2023 1840 EDT by MADHURI, LAB INSTRUMENT RESULTS IN 11/27/2023 18:40 EDT [facility] Performing Lab [facility] 11/27/2023 18:40 EDT [facility] Scanned Images 11/27/2023 18:40 EDT [facility] Pap Test CERVIX UTERI STRUCTURE / Unknown 11/21/2023 15:30 EDT 11/22/2023 14:45 EDT Olinda Salcedo MD PATHOLOGY ORDERABLES [facility] [address] [place] [address] * HUMAN PAPILLOMAVIRUS (HPV) DETECTION-HIGH RISK TYPES (11/21/2023 15:30 EDT) HPV other High Risk types, PCR Negative Negative 11/27/2023 18:40 EDT [facility] Comment:No E6 or E7 mRNA is detected from HPV types 16,18,31,33,35,39,45,51,52,56,58,59,66, and 68 by community engagement leader mediated amplification. Pap Test CERVIX UTERI STRUCTURE / Unknown 11/21/2023 15:30 EDT 11/27/2023 11:59 EDT Olinda Salcedo MD MICROBIOLOGY - GENER AL ORDERABLES [facility] [address] [place], [place] [address] from Last 3 Months Care Teams Vp Of Global Marketing Relationship Specialty Start Date End Date Maribell Bonner MD [address] [place], [place] [address] PCP - General 06/07/09
--- OUTSIDE RECORDS SUMMARY | 2024-02-08 17:21 | XMS_ITS | Encounter Summary ---
Author Organization Health system Address [address] [place] [address] Care Team Providers Care Rotor Winder Name Role Phone Maribell Bonner MD Primary Care Provider [phone] Encounter Details Date Type Department Care Team (Late st Contact Info) Description 03/30/2021 Lab Requisition [facility] Pathology & Laboratory Medicine - [facility] [address], [place] [id number] Outr Resulting Lab, Provider Social History Tobacco Use Types Packs/Day Years [...] Procedure Name Priority Date/Time Associated Diagnosis Comments HOLD SST Today 03/30/2021 8:50 EDT PROLACTIN Today 03/30/2021 8:50 EDT THYROID ANTIBODIES Today 03/30/2021 8:50 EDT CORTISOL Today 03/30/2021 8:50 EDT documented in this encounter Results * HOLD SST (03/30/2021 8:50 EDT) Hold Hold 03/30/2021 17:45 EDT [facility] Blood VENOUS BLOOD / Unknown 03/30/2021 8:50 EDT 03/30/2021 16:43 EDT Provider Outr Resulting Lab LAB INFO SER VICE AND SUPPORT & PHONE RESULT Performing Organization Address [facility] de Phone Number [facility] [address] [place] [address] * THYROID ANTIBODIES (03/30/2021 8:50 EDT) Anti-Thyroglobulin <15 <=60 U/mL 2020 18:41 EDT [facility] Thyroperoxidase Ab <28 <=60 U/mL 2020 18:41 EDT [facility] Blood VENOUS BLOOD / Unknown 03/30/2021 8:50 EDT 03/30/2021 16:42 EDT Provider Outr Resulting Lab CHEMISTRY & BLOOD GAS ORDERABLES Performing Organization Address [facility] de Phone Number [facility] [address] [place] [address] * PROLACTIN (03/30/2021 8:50 EDT) Pathologist [facility] Prolactin 6.9 See Table ng/mL 03/30/2021 18:41 EDT [facility] Comment: NOTE: Female Reference Ranges: PHYSIOLOGICAL STATUS ?EXPECTED RANGE ? Postmenopausal ?1.8 - 20.3 ng/mL ?9.7 - 208.5 ng/mL Non- ?2.8 - 29.2 ng/mL Reference Ranges for Prolactin in female patients <18 years old have not been established. Blood VENOUS BLOOD / Unknown 03/30/2021 8:50 EDT 03/30/2021 16:42 EDT Provider Outr Resulting Lab CHEMISTRY & BLOOD GAS ORDERABLES Performing Organization Address [facility] Co de Phone Number [facility] [address] [place] [address] * CORTISOL (03/30/2021 8:50 EDT) Cortisol 5 See Note ug/dL 03/30/2021 17:31 EDT [facility] Comment: NOTE: Reference Ranges (from [facility]): Collected Before 10:00 AM: ??4 - 23 ug/dL Collected After 5:00 PM: ?2 - 14 ug/dL The results of this assay can be falsely elevated due to the consumption of Biotin. Blood VENOUS BLOOD / Unknown 03/30/2021 8:50 EDT 03/30/2021 16:42 EDT Provider Outr Resulting Lab CHEMISTRY & BLOOD GAS ORDERABLES Performing Organization Address [facility] de Phone Number [facility] [address] [place] [address] documented in this encounter Visit Diagnoses Not on filedocumented in this encounter Care Teams Rotor Winder Relationship Specialty Start Date End Date Maribell Bonner MD [address] [place] [address] PCP - General 06/07/09 documented as of this encounter
--- OUTSIDE RECORDS SUMMARY | 2024-02-08 17:21 | XMS_ITS | Encounter Summary ---
[place] [address] Care Team Providers Care Spice Cleaner Name Role Phone Maribell Bonner MD Primary Care Provider Reason for Visit * Reason Onset Date Comments Medication Refill 12/19/2010 Encounter Details Date Type Department Care Team (Late st Contact Info) Description 12/19/2010 [place] [address] Ann Rock MD [facility] [place] [address] GERD (gastroesophageal reflux disease) Social History Tobacco [...] reflux documented in this encounter Care Teams Spice Cleaner Relationship Specialty Start Date End Date Maribell Bonner MD [address] [place] [address] PCP - General 05/03/10 01/26/14 documented as of this encounter
--- OUTSIDE RECORDS SUMMARY | 2024-02-08 17:21 | XMS_ITS | Encounter Summary ---
[place] [address] Care Team Providers Care Oracle Application Consultant Name Role Phone Mark Bowers MD Primary Care Provider Encounter Details Date Type Department Care Team (Late st Contact Info) Description 08/21/2017 10:58 AM EDT - 08/21/2017 11:59 PM EDT Hospital Encounter [place] [address] Mark Bowers MD [address] [place], [place] [address] Visit for screening mammogram Discharge Disposition: Home [...] MAMMO SCREENING CAD AND POLA BILATERAL Routine 08/21/2017 11:18 AM EDT Visit for screening mammogram documented in this encounter Results * Mammo Screen CAD and Pola Bilat (Generic) (08/21/2017 11:18 AM EDT) Anatomical Region Laterality Modality Breast Bilateral Mammography Narrative 08/21/2017 11:39 AM EDT BILATERAL MAMMOGRAPHY REASON FOR EXAM: [...] No mammographic evidence of malignancy. RECOMMENDATION: [employer] and The Society of [...] mammogram documented in this encounter Care Teams Oracle Application Consultant Relationship Specialty Start Date End Date Mark Bowers MD [address] [place] [address] PCP - General Family Medicine 07/20/17 04/05/21 documented as of this encounter
--- OUTSIDE RECORDS SUMMARY | 2024-02-08 17:21 | XMS_ITS | Encounter Summary ---
Author Organization [facility] Address [facility] [place] [address] Care Team Providers Care Medical Representative Name Role Phone Maribell Bonner MD Primary Care Provider [phone] Encounter Details Date Type Department Care Team (Latest Contact Info) Description 07/14/2010 8:29 AM EST - 07/14/2010 11:48 AM EST Hospital En[place] [address] Ann Shaffer MD [facility] [place] [address] Discharge Disposition: Home Social History Tobacco Use Types Packs/Day Years Used Date Smoking Tobacco: Never Assessed Sex and Gender Information Value Date Recorded Sex Assigned at Not on file Gender Identity Not on file Sexual Orientation Not on file documented as of this encounter Plan of Treatment Not on file documented as of this encounter Procedures Procedure Name Priority Date/Time Associated Diagnosis Comments SURGICAL PATHOLOGY REPORT Routine 07/14/2010 12:02 PM EST documented in this encounter Results * PATHOLOGY SURGICAL PATHOLOGY FINAL REPORT (07/14/2010 12:02 PM EST) Surgical Pathology Report ? [facility] ? Provider: ?? Ann SHAFFER ?Pt. Name: ?? SHANTAL VARGAS ? Acc #: ?[id number] ?Pt. ? Col Date: ?? 07/14/2010 ?/Sex: ?1960,(49 years),Female ? Rec Date: ?? 07/14/2010 ?LOC: ?4T ? SURGICAL PATHOLOGY ? ---Pathologic Diagnosis--- ? Endoscopic biopsy - Duodenal mucosa within normal limits, including ? preserved villous architecture. ? CR-0 ? 07/15/10 ? AAS ? 07/15/10 Verified by: ? Silviano Barrera MD ? Pathologist ? (Electronic Signature) ? The attending pathologist whose signature appears on this report has ? reviewed all diagnostic slides and has edited the gross and/or ? microscopic portion of the report in rendering the final pathologic ? diagnosis. ? ---Microscopic Description--- ? Slides reviewed, microscopic description not recorded. ? ---Gross Description--- ? Labeled/Fixativ e: ? Duodenum, formalin. ? Qty/Size/Weight : ?Five, ranging from 0.1 cm to 0.3 cm in ? greatest dimension. ? Tissue Description: ?? Soft, gordon tissues. ? Sections/Proces sing: ??(T1) ??vms/SNS ? ---Clinical Information--- ? Specimen Submitted: ? A - Mucosal biopsies, duodenum ? Clinical History: ? 49-year-old with dyspepsia and ? of sprue ? Clinical Diagnosis: ? Dyspepsia, GERD ? ISHA MENENDEZENNIUM 07/14/2010 12:0 2 PM EST L Ryan Shaffer MD PATHOLOGY/CYTOLOGY O RDERABLES [facility] documented in this encounter Visit Diagnoses Not on filedocumented in this encounter Care Teams Medical Representative Relationship Specialty Start Date End Date Maribell Bonner MD [address] [place] [address] PCP - General 05/03/10 01/26/14 documented as of this encounter
--- OUTSIDE RECORDS SUMMARY | 2024-02-08 17:21 | XMS_ITS | Encounter Summary ---
[place] [address] Care Team Providers Care Rooming House Keeper Name Role Phone Maribell Bonner MD Primary Care Provider [phone] Encounter Details Date Type Department Care Team (Latest Contact Info) Description 2011 8:37 AM EST - 2011 11:59 PM EST Hospital Encounter [place] [address] CLINIC, Maribell Rodriguez MD [address] [place], [place] [address] Discharge Disposition: Home Social History Tobacco Use [...] every morning. 90 capsule 3 12/19/2010 07/09/2021 esomeprazole (NEXIUM) 40 mg capsuleIndications:GERD (gastroesophageal reflux disease) Take 1 capsule by mouth every morning (before breakfast). 30 capsule 12 12/08/2010 12/08/2011 documented as of this encounter Plan of Treatment Not on file documented as of this encounter Procedures Procedure Name Priority Date/Time Associated Diagnosis Comments MAMMO SCREENING CAD BILATERAL Routine 2011 9:02 AM EST documented in this encounter Results * MAMMO DIGITAL BILATERAL SCREENING WITH CAD (2011 9:02 AM EST) Anatomical Region Laterality Modality Breast Bilateral Mammography 2011 9:02 AM EST Narrative 08/04/2011 7:39 AM EST BILATERAL MAMMOGRAPHY ?? REASON FOR EXAM: Screening [...] evidence of cancer. ? The breasts are heterogeneously dense which may limit mammographic sensitivity for the detection of malignancy. ? CONCLUSION ?? This is a NEGATIVE mammogram (ACR Category 1). Routine screening mammography is recommended with the frequency dependent on the patient's age and breast cancer risk factors. ?? A letter has been sent to this patient [facility]. Procedure Note Sandy Jaimes MD - 08/04/2011 BILATERAL MAMMOGRAPHY REASON FOR EXAM: Screening TECHNIQUE: [...] mammographic evidence of cancer. The breasts are heterogeneously dense which may limit mammographicsensitivity for the detection of malignancy. CONCLUSION This is a NEGATIVE mammogram (ACR Category 1). Routine screeningmammography is recommended with the frequency dependent on the patient's age and breastcancer risk factors. A letter has been sent to this patient by the [facility]. Maribell Bonner MD IMG MAMMO ORDERABLES documented in this encounter Visit Diagnoses Not on filedocumented in this encounter Care Teams Rooming House Keeper Relationship Specialty Start Date End Date Maribell Bonner MD [address] [place] [address] PCP - General 05/03/10 01/26/14 documented as of this encounter
--- OUTSIDE RECORDS SUMMARY | 2024-02-08 17:21 | XMS_ITS | Encounter Summary ---
Author [facility] [place] [address] Care Team Providers Care Financial Services Auditor Name Role Phone Leora Delong APRN Primary Care Provider [phone] Encounter Details Date Type Department Care Team (Late st Contact Info) Description 07/12/2021 Telephone [place] [phone] Dante Dillard RN Social History Tobacco Use Types Packs/Day [...] encounter Miscellaneous Notes * Telephone Encounter - Dante Dillard RN - 07/12/2021 10:04 AM EST Relayed this to patient. She verbalized understanding. I advised her that if she doesn't hear anything from our office by Sunday, she should call to coordinate all of this with the secretaries. * Telephone Encounter - Dante Dillard RN - 07/12/2021 10:04 AM EST Joseph Denise MD 07/11/2021 ??7:32 PM EST Back to Top Hi Dante, Please let pt know that lab after the visit showed that she remains hyperthyroid with suppressed TSH <0.01, so we will arrange for I-123 thyroid nuclear scan and uptake at [facility] as planned & add her to see me right after thyroid nuclear scan and uptake soon (same day to save her trip to [facility]). ?? Our secretaries will help coordinate the nuclear [...] on filedocumented in this encounter Care Teams Financial Services Auditor Relationship Specialty Start Date End Date Leora Delong, RUFINO [address] [place] [address] [address] [place] [address] PCP - General Family Medicine 04/06/21 03/03/22 documented as of this encounter
--- OUTSIDE RECORDS SUMMARY | 2024-02-08 17:21 | XMS_ITS | Encounter Summary ---
[place] [address] Care Team Providers Care Explosive Ordnance Technician Name Role Phone Maribell Bonner MD Primary Care Provider [phone] Reason for Visit * Reason Onset Date Comments Medication Refill 11/18/2010 Encounter Details Date Type Department Care Team (Late st Contact Info) Description 11/18/2010 Refill [place] [address] Ann Rock MD [facility] [place] [address] GERD (gastroesophageal reflux disease) Social History Tobacco [...] reflux documented in this encounter Care Teams Explosive Ordnance Technician Relationship Specialty Start Date End Date Maribell Bonner MD [address] [place] [address] PCP - General 05/03/10 01/26/14 documented as of this encounter
--- OUTSIDE RECORDS SUMMARY | 2024-02-08 17:21 | XMS_ITS | Encounter Summary ---
Author Organization [facility] Address [facility] [place] [address] Care Team Providers Care Bike Technician Name Role Phone Maribell Bonner MD Primary Care Provider Encounter Details Date Type Department Care Team (Late st Contact Info) Description 12/08/2010 [place] [address] Ann Rock MD [facility] [place] [address] GERD (gastroesophageal reflux disease) Social History Tobacco [...] reflux documented in this encounter Care Teams Bike Technician Relationship Specialty Start Date End Date Maribell Bonner MD [address] [place] [address] PCP - General 05/03/10 01/26/14 documented as of this encounter
--- OUTSIDE RECORDS SUMMARY | 2024-02-08 17:21 | XMS_ITS | Encounter Summary ---
[place] [address] Care Team Providers Care Boat Repairer Name Role Phone None Primary Care Provider Unavailabl e Encounter Details Date Type Department Care Team (Latest Contact Info) Description 10/11/2022 Travel Social History Tobacco Use Types Packs/Day [...] on filedocumented in this encounter Care Teams Boat Repairer Relationship Specialty Start Date End Date None None PCP - General 10/11/22 documented as of this encounter
--- OUTSIDE RECORDS SUMMARY | 2024-02-08 17:21 | XMS_ITS | Encounter Summary ---
[place] [address] Care Team Providers Care Drier Helper Name Role Phone Leora Delong APRN Primary Care Provider + [phone] Reason for Referral * Diagnostic Test (Routine) - Closed Specialty Diagnoses / Procedures Referred By Carlotta pyle Referred To Contact Radiology Diagnoses T3 thyrotoxicosis Low TSH level Multiple thyroid nodules Procedures NM I-131 Initial Therapy Joseph Denise MD [facility] [place] [address] [place] [address] Referral ID Status Reason Start Date Expiration Date V isits Requested Visits Authorized [id number] Closed Specialty Service Requested 08/12/2021 06/10/2022 1 1 Encounter Details Date Type Department Care Team (Latest Contact Info) Description 08/04/2021 8:30 AM EST TH Visit (TeleHealth) [place] [address] Joseph Denise MD [facility] [place] [address] T3 thyrotoxicosis; Low TSH level; Multiple thyroid [...] on file documented as of this encounter Patient Instructions * Patient Instructions* Joseph Denise MD - 08/04/2021 8:46 AM EST PLAN: 1. Medication: Patient will have I-131 therapy soon for her toxic multinodular goiter with hyperthyroid and elevated I-123 uptake of 44.2% on Thyroid nuclear scan yesterday as above.. She may need to start taking propanolol-LA 60 mg qd or bid p.r.n. if she experiences symptoms of palpitations and tremor as it can help reduce the adrenergic response enhanced by hyperthyroidism. We would expect I-131 therapy to work slowly and complete the work in 3 months. Patient will continue all other medications, healthy diet and execise regularly. 2. To continue low iodine diet until she completes I-131 therapy soon and then ok to resume eating regular healthy diet. 3. Lab: to recheck lab in 6 weeks and 3 months for TSH, FT4, T3 (standing orders) 4. X-ray/Imaging study: She already had I-123 Thyroid nuclear scan and uptake yesterday. We will wait to check neck US for the nodule and goiter size next year or earlier if needed. 5. RTC: 3 months in person after completion of I-131 therapy to see if she needs to start taking some thyroid supplement as indicated. Target TSH 0.5-3.0 in normal range for her. JOSEPH DENISE MD documented in this encounter Progress Notes * Joseph Denise MD - 08/04/2021 8:30 AM EST Endocrinology Follow-up Note Date of Visit: 08/04/21 Patient: Name: Althea Vargas :1960 PCP: Leora Delong APRN Reason for follow-up : hyperthyroidism with persistently low TSH and elevated T3 c/w T3 toxicosis. Recent thyroid nuclear scan and uptake yesterday which confirmed toxic MNG and is ready for I-131 therapy to reduce the goiter size and treat her hyperthyroid. Patient verbally consents to this telehealth visit and understands that this visit may be billed, similar to a clinic office visit. I provided care to the patient today via Phone call. The total time associated with this visit, chart review, documentation, and coordination of care was 30 minutes. HISTORY OF PRESENT ILLNESS: Althea Vargas is a very pleasant 61 y.o. female who presented for evaluation of hyperthyroidism with low TSH with normal FT4 since 2018. She used to have thyroid nuclear scan and uptake on 06/16/18-06/17/18 which showed high uptake 42% at 24h without hot nodules. Follow-up lab tests showed persistently suppressed TSH <0.01 with normal FT4 but recently high Free T3 at 5.6 on 02/03/21. She noted some wt loss of 10 lbs over 3 months from 182 last Oct to 172 lbs but contributed this tobetter diet control. Also some more fatigue with anxiety and occasional insomnia requiring treatment using Paxil 30 mg daily lately. No palpitations or loose stools. Patient denies excessive iodine intake or recent iodine contrast administration and not taking OTC-biotin or any medication that will cause hyperthyroid. Patient has FH of thyroid problem in her daughter who is an RN at [employer]. Recent labs : Date 03/30/20 10/28/20 02/03/21 07/11/21 TSH 0.00 <0.01 <0.01 <0.01 FT4 1.24 1.31 1.21 1.53 FT3 - - 5.6H 5.2H T3 175H TSI Negative 25vitamin D 36 TRAb Negative TPOAb Negative TgAb Negative Ca 9.1 TC/LDL 224H/150H TG/HDL 47/65 B12 405 CMP Normal Fatigue - Yes Irritability/nervousness - Yes Muscle weakness/tremors - no Weight loss - Yes, down 10 lbs from 182 to 172 lbs and 166 lbs in 6 mo since Mar 2021 Sleep disturbances - [...] Currently Partners: Male control/protection: Post-menopausal PHYSICAL EXAM: (*from recent visit 07/11/21) BP 125/89 Pulse 78 Temp 36.3 ??C [...] NEURO: normal strength, slightly brisk reflexes Office Thyroid Ultrasound at visit at initial consultation: Date: [...] for I-131 therapy for toxic MNG Joseph Denies MD, PhD, FACE, FACP Lab after the initial visit on 07/11/21 confirmed T3 thyrotoxicosis Latest Reference Range & Units 07/11/21 17:27 25-OH Vit D Total 21 - 100 ng/mL 36 25-OH Vit D Interp Sufficient T3, Total 80 - 200 ng/dL 175 Free T4 0.93 - 1.70 ng/dL 1.53 [1] TSH 0.27 - 4.20 mcIU/mL <0.01 (L) [2] T3, Free 2.0 - 4.4 pg/mL 5.2 (H) TSI <=0.55 IU/L <0.10 EXAMINATION: NM I-123 THYROID IMAGING W UPTAKE ??Date 08/03/21 CLINICAL HISTORY: Hyperthyroid with numerous thyroid nodules bilaterally on office US - likely toxic MNG. Please do scan and uptake in preparation of I-131 therapy, (not on any thyroid medication andis on low iodine diet) TECHNIQUE: I-123 was administered orally in a dose of 200 uCi. Twenty four hours later, probe uptake measurement of the thyroid was obtained. Images of the thyroid were obtained in the anterior and anterior oblique projections using a gamma camera with pinhole collimator. COMPARISON: None ?? FINDINGS: Multinodular appearance of tracer uptake throughout both lobes of the thyroid, left lobe larger than right. No dominant cold or hot nodules but increased radioactivity in patchy areas bilaterally (bilateral scattered hot nodules). 24 hour radioactive iodine uptake is 44.2% (normal 10 - 25%) ?? IMPRESSION Findings are consistent with hyperthyroidism due to toxic multinodular goiter. Addendum 09/23/21: *Lab at 6 weeks after I-131 therapy since 08/04/21. Latest Reference Range & Units 07/11/21 17:27 09/23/21 10:53 T3, Total 80 - 200 ng/dL 175 82 Free T4 0.93 - 1.70 ng/dL 1.53 [1] 0.82 (L) [2] TSH 0.27 - 4.20 mcIU/mL <0.01 (L) [3] <0.01 (L) [4] *TSH is still suppressed lagging behind as expected due to previously high thyroid but Free T4 is borderline low with low normal T3, so I-131 already worked to reduce the hot nodules and goiter for her. As she may start to feel tired, it's good to start taking a low dose levothyroxine (LT4) 50 mcg daily supplement to keep the thyroid levels up in normal range and then recheck lab in 6 weeks as planned.?? Addendum 11/09/21: Lab at 3 mo post I-131 therapy showed normalized TSH 0.55 but slightly low FT4 0.71 and T3 at 54, so we will increase levothyroxine to 100 mcg daily and recheck lab in 6 weeks. Lab on 12/21/21 showed good Free T4 1.39 but suppressed TSH 0.06 due to high thyroid and slightly low T3 (likely misleadingly low due to low thyroid binding protein so we will not rely on this), So, please reduce levothyroxine 100 mcg Sun-Sun and to take only 0.5 tablet (50 mcg) on Sunday and Sunday for now. Then recheck lab in 6 weeks as arranges for trend. Resulted Orders T3 Total Result Value Ref Range T3, Total 66 (L) 80 - 200 ng/dL T4, free Result Value Ref Range Free T4 1.39 0.93 - 1.70 ng/dL TSH Result Value Ref Range TSH 0.06 (L) 0.27 - 4.20 mcIU/mL DIAGNOSIS: 61 y.o. lady with hyperthyroidism (subclinical ->T3 thyrotoxicosis) due to toxic MNG with numerous thyroid nodules throughout the thyroid on office thyroid ultrasound findings at initial consultation visit (07/11/21). All thyroid autoantibodies were negative for TSI, TRAb, TPO and TgAb which helprule out Grave's disease in the setting of MNG. Previous thyroid nuclear scan and uptake in Apr 2019 showed increased uptake 42% at 24h without distinct hot nodule seen and repeat I-123 thyroid nuclear scan and uptake yesterday (08/03/21) confirmed toxic MNG with images showed patchy areas of increased radioactivities bilaterally consistent with bilateral scattered hot nodules. She is mildly symptomatic with wt loss, some more anxiety and fatigue but denies palpitations, tremor, diarrhea or other hyperadrenergic symptoms. Lab confirmed that she remains hyperthyroid, and has high uptake of 44.2% on the I-123 thyroid nuclear scan and uptake yesterday, in preparation for I-131 therapy for her toxic MNG to help destroy the hot nodules and keep her euthyroid as a definitive therapy as planned. She understands that anti-thyroid medication is only to keep thyroid function back to normal but thenodules are still there. Surgery is not indicated in her case with only mild goiter without any pressure symptoms and still early stage of hyperthyroid. PLAN: 1. Medication: Patient will have I-131 therapy soon for her toxic multinodular goiter with hyperthyroid and elevated I-123 uptake of 44.2% on Thyroid nuclear scan yesterday as above.. She may need to start taking propanolol-LA 60 mg qd or bid p.r.n. if she experiences symptoms of palpitations and tremor as it can help reduce the adrenergic response enhanced by hyperthyroidism. We would expect I-131 therapy to work slowly and complete the work in 3 months. Patient will continue all other medications, healthy diet and execise regularly. Addendum 11/09/21: Lab at 3 mo post I-131 therapy showed normalized TSH 0.55 but slightly low FT4 0.71 and T3 at 54, so we will increase levothyroxine 50 to 100 mcg daily and recheck lab in 6 weeks. Lab on 12/21/21 showed good Free T4 1.39 but suppressed TSH 0.06 due to high thyroid and slightly low T3 (likely misleadingly low due to low thyroid binding protein so we will not rely on this), So, please reduce levothyroxine 100 mcg Sun-Sun and to take only 0.5 tablet (50 mcg) on Sunday and Sunday for now. Then recheck lab in 6 weeks as arranges for trend. 2. To continue low iodine diet until she completes I-131 therapy soon and then ok to resume eating regular healthy diet. 3. Lab: to recheck lab in 6 weeks and 3 months for TSH, FT4, T3 (standing orders) 4. X-ray/Imaging study: She already had I-123 Thyroid nuclear scan and uptake yesterday. We will wait to check neck US for the nodule and goiter size next year or earlier if needed. 5. RTC: 3 months after completion of I-131 therapy to see if she needs to start taking some thyroidsupplement as indicated. Target TSH 0.5-3.0 in normal range for her. We have reviewed our plan outlined above with the patient, and patient verbalized understanding. All questions were answered and we already gave her counseling abouther thyroid conditions, low iodinediet prior to Rx, including pros and cons of using symptomatic anti-thyroid medication vs the curative I-131 therapy (surgery is not indicated in her case with mild goiter without pressure symptoms),the diagnostic and therapeutic decisions, and coordination of care. Thank you for allowing me to participate in the care of this very pleasant patient. Joseph Denise MD, PhD, FACE, FACP cc: Leora Delong APRN documented in this encounter Miscellaneous Notes * Addendum Note - Joseph Denise MD - 08/04/2021 8:30 AM ESTAddended by: JOSEPH DENISE on: 09/23/2021 08:56 PM Modules accepted: Orders * Addendum Note - Joseph Denise MD - 08/04/2021 8:30 AM ESTAddended by: JOSEPH DENISE on: 11/09/2021 08:14 AM Modules accepted: Orders documented in this encounter Plan of Treatment Not on file documented as of this encounter Results * NM I-131 Initial [...] who have questions please contact the health director critical care that requested your imaging first. ? Electronically signed by: Porfirio Stovall MD, [facility] ([phone]), at 08/12/2021 4:54 PM Narrative 08/12/2021 4:54 [...] patients who have questions please contactthe health director critical care that requested your imaging first. Electronically signed by: Porfirio Stovall MD, [facility]([phone]), at 08/12/2021 4:54 PM Joseph Denise MD [facility] [place] documented in this encounter Visit Diagnoses Diagnosis T3 thyrotoxicosis Thyrotoxicosis without mention of goiter or other cause, without mention of thyrotoxic crisis or storm Low TSH level Nonspecific abnormal results of thyroid function study Multiple thyroid nodules Nontoxic multinodular goiter T3 thyrotoxicosis Thyrotoxicosis without mention of goiter or other cause, without mention of thyrotoxic crisis or storm Low TSH level Nonspecific abnormal results of thyroid function study Multiple thyroid nodules Nontoxic multinodular goiter documented in this encounter Care Teams Drier Helper Relationship Specialty Start Date End Date Leora Delong APRN [address] [place] [address] PCP - General Family Medicine 04/06/21 03/03/22 documented as of this encounter
--- OUTSIDE RECORDS SUMMARY | 2024-02-08 17:21 | XMS_ITS | Encounter Summary ---
Author Organization [facility] Address [facility] [place] [address] Care Team Providers Care Vp Client Services Name Role Phone None Primary Care Provider Unavailabl e Encounter Details Date Type Department Care Team (Latest Contact Info) Description 10/11/2022 11:30 AM EDT Office [place] [id number] Joseph Denise MD 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 on 08/12/21 to follow the nodules and to check baseline gland size Comparison: 07/11/21 Procedure: Using real-time ultrasonography limited to the thyroid gland, longitudinal and transverse images with and without color doppler were obtained of both lobes and isthmus The right lobe measures 3.3x0.7x1.0 cm (was 5.0x1.4x1.9 cm on 07/11/21) The left lobe measures 3.2x0.7x1.0 cm (was 5.9x1.2x1.7 cm on 07/11/21) Isthmus thickness 0.1 cm The overall thyroid gland is small and heterogeneous with numerous small mixed solid/cystic thyroidnodules bilaterally and the largest mixed cyst was 0.5x0.3 cm in the left lobe (previously 1.6x1.0x1.2 cm int he right lobe and 1.2x1.0x2.4 cm in the left lobe on 07/11/21). Impression: Good resolution of multinodular thyroid gland after I-131 therapy and the overall thyroid gland is small with tiny cysts up to 0.5 cm bilaterally. Rec: Recheck lab for TSH, FT4 and T3 today No need for scheduled ultrasound unless she is symptomatic. Continue taking levothyroxine to keep TSH normal at 0.3-2.0 and <3.0. Joseph Denise MD, PhD, FACE, FACP -- She underwent I-131 therapy (31 mCi) on 08/12/21 for her toxic MNG to help destroy the hot nodulesand keep her out of hyperthyroid as a definitive therapy as planned. Surgery is not indicated in her case with only mild goiter without any pressure symptoms and still mild hyperthyroid. -- She then switched to mild hypothyroid requiring levothyroxine supplement ~85 mcg/day (using LT4 100 mcg M-F and 0.5 tab S&S) since December 2021. Recent labs : Date 03/30/20 10/28/20 02/03/21 07/11/21 09/23/21 11/09/21 12/21/21 02/17/22 TSH 0.00 <0.01 <0.01 <0.01 <0.01 0.55 0.06 0.31 FT4 1.24 1.31 1.21 1.53 0.82 0.71 1.39 1.34 FT3 - - 5.6H 5.2H T3 175H 82 65L 66L 63L TSI Negative 25vitamin D 36 TRAb Negative TPOAb Negative TgAb Negative Ca 9.1 TC/LDL 224H/150H TG/HDL 47/65 B12 405 CMP Normal PLAN: 1. Medication: Patient will cont taking levothyroxine 100 mcg Sun-Sun and 0.5 tablet (50 mcg) on Sunday and Sunday for now. Target TSH 0.5-3.0 in normal range for her. 2. Lab: to recheck lab today as ordered below and to recheck lab outside as needed for TSH (standing order for TSH as needed every 3 months) Orders Placed This Encounter Procedures TSH T4, free T3 Total T3, free Vitamin D, 25-Hydroxy TSH 3. X-ray/Imaging study: neck US for the nodule and goiter size 1 year after I- 131 ablation as planned today as above 4. RTC: 1 year or earlier if needed. Joseph Denise MD, PhD, FACE, FACP Thank you for allowing me to participate in the care of this very pleasant patient. 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 on 08/12/21 to follow the nodules and to check baseline gland size Comparison: 07/11/21 Procedure: Using real-time ultrasonography limited to the thyroid gland, longitudinal and transverse images with and without color doppler were obtained of both lobes and isthmus The right lobe measures 3.3x0.7x1.0 cm (was 5.0x1.4x1.9 cm on 07/11/21) The left lobe measures 3.2x0.7x1.0 cm (was 5.9x1.2x1.7 cm on 07/11/21) Isthmus thickness 0.1 cm The overall thyroid gland is small and heterogeneous with numerous small mixed solid/cystic thyroidnodules bilaterally and the largest mixed cyst was 0.5x0.3 cm in the left lobe (previously 1.6x1.0x1.2 cm int he right lobe and 1.2x1.0x2.4 cm in the left lobe on 07/11/21). Impression: Good resolution of multinodular thyroid gland after I-131 therapy and the overall thyroid gland is small with tiny cysts up to 0.5 cm bilaterally. Rec: Recheck lab for TSH, FT4 and T3 today No need for scheduled ultrasound unless she is symptomatic. Continue taking levothyroxine to keep TSH normal at 0.3-2.0 and <3.0. Joseph Denise MD, PhD, FACE, FACP Endocrinology Follow-up Note Date of Visit: 10/11/22 Patient: Name: Althea Vargas :1960 PCP: None Reason for follow-up : h/o of toxic MNG with hyperthyroidism (T3 toxicosis) s/p I-131 therapy 31 mCi since 08/12/21 to reduce the goiter size and treat her hyperthyroid. HISTORY OF PRESENT ILLNESS: Althea Vargas is a very pleasant 62 y.o. female who presented for evaluation of hyperthyroidism with low TSH with normal FT4 since 2019. She used to have thyroid nuclear scan and uptake on 06/16/18-06/17/18 which showed high uptake 42% at 24h without hot nodules. Follow-up lab tests showed persistently suppressed TSH <0.01 with normal FT4 but high Free T3 at 5.6 on 02/03/21. She noted some wtloss of 10 lbs over 3 months from 182 last Oct to 172 lbs but contributed this to better diet control. [...] her daughter who is an RN at [facility] [employer]. -- All thyroid autoantibodies were negative for TSI, TRAb, TPO and TgAb which help rule out Grave'sdisease in the setting of MNG. -- Thyroid nuclear scan and uptake in Apr 2019 showed increased uptake 42% at 24h without distinct hot nodule seen and repeat I-123 thyroid nuclear scan and uptake (08/03/21) confirmed toxic MNG with images showed patchy areas of increased radioactivities bilaterally consistent with bilateral scattered hot nodules. Also high uptake of 44.2% on the I-123 thyroid nuclear scan and uptake. -- She underwent I-131 therapy (31 mCi) on 08/12/21 for her toxic MNG to help destroy the hot nodulesand keep her out of hyperthyroid as a definitive therapy as planned. Surgery is not indicated in her case with only mild goiter without any pressure symptoms and still mild hyperthyroid. -- She then switched to mild hypothyroid requiring levothyroxine supplement ~85 mcg/day (using LT4 100 mcg M-F and 0.5 tab S&S) since December 2021. Recent labs : Date 03/30/20 10/28/20 02/03/21 07/11/21 09/23/21 11/09/21 12/21/21 02/17/22 TSH 0.00 <0.01 <0.01 <0.01 <0.01 0.55 0.06 0.31 FT4 1.24 1.31 1.21 1.53 0.82 0.71 1.39 1.34 FT3 - - 5.6H 5.2H T3 175H 82 65L 66L 63L TSI Negative 25vitamin D 36 TRAb Negative TPOAb Negative TgAb Negative Ca 9.1 TC/LDL 224H/150H TG/HDL 47/65 B12 405 CMP Normal Fatigue - Yes Irritability/nervousness - No Muscle weakness/tremors - no Weight loss - No, gained wt from 166 lb (October 2021) to 193 lbs over the past year Sleep disturbances - No Vision/eye problems - no Heat sensitivity - [...] MNG Joseph Denise MD, PhD, FACE, FACP Lab after the [...] recheck lab in 6 weeks as planned.?? 11/09/21: Lab at 3 mo post I-131 [...] TSH 0.06 (L) 0.27 - 4.20 mcIU/mL Latest Reference Range & Units 07/11/21 17:27 09/23/21 10:53 11/09/21 07:14 12/21/21 10:01 02/17/22 08:36 25-OH Vit D Total 21 - 100 ng/mL 36 25-OH Vit D Interp Sufficient T3, Total 80 - 200 ng/dL 175 82 54 (L) 66 (L) 63 (L) Free T4 0.93 - 1.70 ng/dL 1.53 0.82 (L) 0.71 (L) 1.39 1.34 TSH 0.27 - 4.20 mcIU/mL <0.01 (L) <0.01 (L) 0.55 0.06 (L) 0.31 T3, Free 2.0 - 4.4 pg/mL 5.2 (H) TSI <=0.55 IU/L <0.10 Addendum 10/11/22: Below are the results from your recent visit today which showed good thyroid results for TSH, FT4 and FT3 (total T3 is misleadingly low in your case so we need to rely on the free [id number] form). Your vitamin D was low normal at 31 (normal 30-100). So, you should take extra OTC vitamin-D 1,000-2,000 iu daily too for your bone health. ?? Resulted Orders Vitamin D, 25-Hydroxy Result Value Ref Range ?? 25-OH Vit D Total 31 21 - 100 ng/mL ?? 25-OH Vit D Interp Sufficient ?? T3, free Result Value Ref Range ?? T3, Free 2.2 2.0 - 4.4 pg/mL T3 Total Result Value Ref Range ?? T3, Total 78 (L) 80 - 200 ng/dL T4, free Result Value Ref Range ?? Free T4 1.10 0.93 - 1.70 ng/dL TSH Result Value Ref Range ?? TSH 0.55 0.27 - 4.20 mcIU/mL ?? DIAGNOSIS: 62 y.o. lady with hyperthyroidism (subclinical ->T3 thyrotoxicosis) due to toxic MNG with numerous thyroid nodules throughout the thyroid on office thyroid ultrasound at initial consultation visit(07/11/21). All thyroid autoantibodies were negative for TSI, TRAb, TPO and TgAb which help rule outGrave's disease in the setting of MNG. Previous thyroid nuclear scan and uptake in Apr 2019 showed increased uptake 42% at 24h without distinct hot nodule seen and repeat I-123 thyroid nuclear scan and uptake (08/03/21) confirmed toxic MNG with images showed patchy areas of increased radioactivitiesbilaterally consistent with bilateral scattered hot nodules. She is mildly symptomatic with wt loss, anxiety and fatigue but denies palpitations, tremor, diarrhea or other hyperadrenergic symptoms. Lab confirmed that she was hyperthyroid, and had high uptake of 44.2% on the I-123 thyroid nuclear scan and uptake, and then underwent I-131 therapy (31 mCi) on 08/12/21 for her toxic MNG to help destroythe hot nodules and keep her out of hyperthyroid as a definitive therapy as planned. Surgery is notindicated in her case with only mild goiter without any pressure symptoms and still mild hyperthyroid. She then switched to mild hypothyroid requiring levothyroxine supplement ~85 mcg/day (using LT4 100 mcg M-F and 0.5 tab S&S) since December 2021. PLAN: 1. Medication: Patient will cont taking levothyroxine 100 mcg Sun-Sun and 0.5 tablet (50 mcg) on Sunday and Sunday for now. Target TSH 0.5-3.0 in normal range for her. To also take extra OTC vitamin-D 1,000-2,000 iu daily too for her bone health with a borderline lowvitamin D at 31 (normal 30-100). 2. Lab: to recheck lab today as ordered below and to recheck lab outside as needed for TSH (standing order for TSH as needed every 3 months) Orders Placed This Encounter Procedures ??? TSH ??? T4, free ??? T3 Total ??? T3, free ??? Vitamin D, 25-Hydroxy ??? TSH 3. X-ray/Imaging study: neck US for the nodule and goiter size 1 year after I- 131 ablation as planned today. 4. RTC: 1 year or earlier if needed. Thank you for allowing me to participate in the care of this very pleasant patient. Joseph Denise MD, PhD, FACE, FACP cc: None documented in this encounter Miscellaneous Notes * Addendum Note - Joseph Denise MD - 10/11/2022 11:30 AM EDTAddended by: JOSEPH DENISE on: 10/11/2022 11:00 PM Modules accepted: Orders documented in this encounter Plan of Treatment Not on file documented as of this encounter Procedures Procedure Name Priority Date/Time Associated Diagnosis Comments VITAMIN D, 25-HYDROXY Routine 10/11/2022 12:56 PM EDT Multiple thyroid nodules Vitamin D insufficiency Hypothyroidism, postradioiodine therapy T3, FREE Routine 10/11/2022 12:56 PM EDT Multiple thyroid nodules Vitamin D insufficiency Hypothyroidism, postradioiodine therapy T3 TOTAL Routine 10/11/2022 12:56 PM EDT Multiple thyroid nodules Vitamin D insufficiency Hypothyroidism, postradioiodine therapy TSH Routine 10/11/2022 12:56 PM EDT Multiple thyroid nodules Vitamin D insufficiency Hypothyroidism, postradioiodine therapy T4, FREE Routine 10/11/2022 12:56 PM EDT Multiple thyroid nodules Vitamin D insufficiency Hypothyroidism, postradioiodine therapy documented in this encounter Results * Vitamin D, 25-Hydroxy (10/11/2022 12:56 PM EDT) Vitamin D Total 25 OH 31 21 - 100 ng/mL [facility] Vit D Interp Sufficient [facility] Blood 10/11/2022 12:5 6 PM EDT 10/11/2022 1:26 PM EDT Narrative Resulting Agency Comment Spec In Lab Joseph Denise MD CHEMISTRY ORDERAB LES [facility] [place] [address] * T3, free (10/11/2022 12:56 PM EDT) Free T3 2.2 2.0 - 4.4 pg/mL [facility] Blood 10/11/2022 12:5 6 PM EDT 10/11/2022 1:26 PM EDT Narrative Resulting Agency Comment Spec In Lab Joseph Denise MD CHEMISTRY ORDERAB LES [facility] [place] [address] * (ABNORMAL) T3 Total (10/11/2022 12:56 PM EDT) Pathologist [facility] T3 Total 78(L) 80 - 200 ng/dL [facility] Blood 10/11/2022 12:5 6 PM EDT 10/11/2022 1:26 PM EDT Narrative Resulting Agency Comment Spec In Lab Joseph Denise MD CHEMISTRY ORDERAB LES Performing Organization Address City/[facility]/ZIP Co de Phone Number [facility] [place] [address] * T4, free (10/11/2022 12:56 PM EDT) Free T4 1.10 0.93 - 1.70 ng/dL [facility] Comment: Reference Interval (ng/dL): Females: ??First Trimester: 0.97-1.68 ??Second Trimester: 0.77-1.51 ??Third Trimester: 0.77-1.49 Blood 10/11/2022 12:5 6 PM EDT 10/11/2022 1:26 PM EDT Narrative Resulting Agency Comment Spec In Lab Joseph Denise MD CHEMISTRY ORDERAB LES Performing Organization Address City/[facility] Co de Phone Number [facility] [place] [address] * TSH (10/11/2022 12:56 PM EDT) Thyroid Stimulating Hormone 0.55 0.27 - 4.20 mcIU/mL [facility] Comment: Reference Interval (mcIU/mL): Females: ??First Trimester: 0.23-3.88 ??Second Trimester: 0.22-3.90 ??Third Trimester: 0.44-4.66 Blood 10/11/2022 12:5 6 PM EDT 10/11/2022 1:26 PM EDT Narrative Resulting Agency Comment Spec In Lab Joseph Denise MD CHEMISTRY ORDERAB LES Performing Organization Address [facility] Co de Phone Number [facility] [place] [address] documented in this encounter Visit Diagnoses Diagnosis Multiple thyroid nodules Nontoxic multinodular goiter Vitamin D insufficiency Unspecified vitamin D deficiency Hypothyroidism, postradioiodine therapy Other postablative hypothyroidism documented in this encounter Care Teams Vp Client Services Relationship Specialty Start Date End Date None None PCP - General 10/11/22 documented as of this encounter
--- OUTSIDE RECORDS SUMMARY | 2024-02-08 17:21 | XMS_ITS | Encounter Summary ---
Author Organization [facility] Address [address] [place] [address] Care Team Providers Care Bundler Seasonal Greenery Name Role Phone Maribell Bonner MD Primary Care Provider [phone] Encounter Details Date Type Department Care Team (Late st Contact Info) Description 03/30/2021 Lab Requisition [facility] Pathology & Laboratory Medicine - [facility] [address] [place] [address] Leora Delong, TELEGRAPH MECHANIC [address] [place] [id number] Encounter for other general examination Social History [...] Date/Time Associated Diagnosis Comments PAP TEST Today 03/28/2021 10:00 EDT Encounter for other general examination HPV GENOTYPES 16 AND 18/45 Today 03/28/2021 10:00 EDT Encounter for other general examination HPV DNA DETECTION WITH GENOTYPING, PCR Today 03/28/2021 10:00 EDT Encounter for other general examination documented in this encounter Results * HPV GENOTYPES 16 AND 18/45 (03/28/2021 10:00 EDT) HPV High Risk type 16, PCR Negative Negative 04/14/2021 15:05 EDT [facility] HPV18/45 RNA (HPV18/45) Negative Negative 04/14/2021 15:05 EDT [facility] Papanicolaou smear specimen (specimen) CERVIX UTERI STRUCTURE / Unknown 03/28/2021 10:00 EDT 04/06/2021 13:57 EDT Leora Delong NP MICROBIOLOGY - GENER AL ORDERABLES Performing Organization Address City/[facility] Co de Phone Number [facility] [address] [place] [address] * (ABNORMAL) HUMAN PAPILLOMAVIRUS (HPV) DETECTION-HIGH RISK TYPES (03/28/2021 10:00 EDT) HPV other High Risk types, PCR Positive(A ) Negative 04/14/2021 15:09 EDT [facility] Papanicolaou smear specimen (specimen) CERVIX UTERI STRUCTURE / Unknown 03/28/2021 10:00 EDT 04/06/2021 13:57 EDT Leora Delong NP MICROBIOLOGY - GENER AL ORDERABLES Performing Organization Address City/[facility]/ZIP Co de Phone Number [facility] [address] [place] [address] * PAP TEST (03/28/2021 10:00 EDT) Specimens A. Cervix and/or Endocervix , ThinPrep Imaging System with Manual Evaluation 04/14/2021 15:09 EDT [facility] Specimen Adequacy Satisfactory for Evaluation - transformation zone component present 04/14/2021 15:09 EDT [facility] General Categorization Negative for intraepithelial lesion or malignancy 04/14/2021 15:09 EDT [facility] Attestation . 04/14/2021 15:09 T [facility] at 1509 Clinical History See below 11/04/20 21 15:09 EDT [facility] HPV The result for the Human Papillomavirus (HPV) Detection-High Risk Types is Positive . E6 OR E7 mRNA from one or more types of HPV types 16,18,31,33,35,39 ,45,51,52,56,58,5 9,66, and 68 is detected by teamsite developer mediated amplification. High and intermediate risk HPV types are associated with most squamous intraepithelial lesions and cervical cancers. Testing was performed on specimen [id number] and was resulted on 04/11/2021 1627 EDT by MADHURI, LAB INSTRUMENT RESULTS IN 04/14/2021 15:09 EDT [facility] Genotyping 16 & 18/45 The results for the HPV Genotypes 16 and 18/45 are Negative for the HPV16 RNA and Negative for the HPV18/45 RNA (HPV18/45). Testing was performed on specimen [id number] and was resulted on 04/14/2021 1453 EDT by MADHURI, LAB INSTRUMENT RESULTS IN 04/14/2021 15:09 EDT [facility] Performing Lab [facility] 04/14/2021 15:09 EDT [facility] Scanned Images 04/14/2021 15:09 T [facility] Papanicolaou smear specimen (specimen) CERVIX UTERI STRUCTURE / Unknown 03/28/2021 10:00 EDT 03/30/2021 15:30 EDT Leora Delong NP PATHOLOGY ORDERABLES [facility] [address] [place] [address] documented in this encounter Visit Diagnoses Diagnosis Encounter for other general examination documented in this encounter Care Teams Bundler Seasonal Greenery Relationship Specialty Start Date End Date Maribell Bonner MD [address] [place], [place] [id number] PCP - General 06/07/09 documented as of this encounter
--- OUTSIDE RECORDS SUMMARY | 2024-02-08 17:21 | XMS_ITS | Encounter Summary ---
[place] [address] Care Team Providers Care Tripe Scraper Name Role Phone Maribell Bonner MD Primary Care Provider [phone] Encounter Details Date Type Department Care Team (Late st Contact Info) Description 07/14/2010 10:00 AM EST Office [place] [address] Maribell Negron, RN Social History Tobacco Use Types Packs/Day Years Used Date Smoking Tobacco: Never Assessed Sex and Gender Information Value Date Recorded Sex Assigned at Not on file Gender Identity Not on file Sexual Orientation Not on file documented as of this encounter Plan of Treatment Not on file documented as of this encounter Visit Diagnoses Not on filedocumented in this encounter Care Teams Tripe Scraper Relationship Specialty Start Date End Date Maribell Bonner MD [address] [place] [address] PCP - General 05/03/10 01/26/14 documented as of this encounter
--- OUTSIDE RECORDS SUMMARY | 2024-02-08 17:21 | XMS_ITS | Encounter Summary ---
[place] [address] Care Team Providers Care Barber Shop Operator Name Role Phone Leora Delong APRN Primary Care Provider [phone] Reason for Referral * Diagnostic Test (Routine) - Closed Specialty Diagnoses / Procedures Referred By Contac t Referred To Contact Radiology Diagnoses T3 thyrotoxicosis Vitamin D insufficiency Low TSH level Procedures NM I-123 Thyroid Imaging w Uptake Joseph Denise MD [facility] [place] [address] [place] [address] [place] [address] Referral ID Status Reason Start Date Expiration Date V isits Requested Visits Authorized [id number] Closed Specialty Service Requested 08/03/2021 06/10/2022 1 1 Reason for Visit * Diagnostic Test (Routine) - Closed Specialty Diagnoses / Procedures Referred By Contac t Referred To Contact Radiology Diagnoses T3 thyrotoxicosis Vitamin D insufficiency Low TSH level Procedures NM I-123 Thyroid Imaging w Uptake Joseph Denise MD [facility] [place] [address] [place] [address] Referral ID Status Reason Start Date Expiration Date V isits Requested Visits Authorized [id number] Closed Specialty Service Requested 08/03/2021 06/10/2022 1 1 Encounter Details Date Type Department Care Team (Latest Contact Info) Description 08/03/2021 12:35 PM EST - 08/03/2021 11:59 PM EST Hospital Encounter [place] [address] Joseph Denise MD [facility] [place] [address] T3 thyrotoxicosis (TSH <0.01, noramal FT4 1.2, high FT3 5.6 02/03/21); high I-123 uptake 42% diffusely without nodule on 04/17/19; negative TRAb, TPO and TgAb; Vitamin D insufficiency; Low TSH level Discharge Disposition: Home Social History Tobacco Use [...] Priority Date/Time Associated Diagnosis Comments NM I 123 THYROID IMAGING WITH UPTAKE Routine 08/03/2021 2:49 PM EST T3 thyrotoxicosis (TSH <0.01, noramal FT4 1.2, high FT3 5.6 02/03/21); high I-123 uptake 42% diffusely without nodule on 04/17/19; negative TRAb, TPO and TgAb Vitamin D insufficiency Low TSH level documented [...] who have questions please contact the health care transition mgr that requested your imaging first. ? Narrative 08/03/2021 4:51 PM EST EXAMINATION: NM [...] patients who have questions please contactthe health care transition mgr that requested your imaging first. Joseph Denise MD [facility] ORDERABLES documented in this encounter Visit [...] study documented in this encounter Care Teams Barber Shop Operator Relationship Specialty Start Date End Date Leora Delong, RUFINO [address] [place] [address] PCP - General Family Medicine 04/06/21 03/03/22 documented as of this encounter
--- OUTSIDE RECORDS SUMMARY | 2024-02-08 17:21 | XMS_ITS | Encounter Summary ---
Author Organization [facility] Address [address] [place] [address] Care Team Providers Care Seafood Packer Name Role Phone Maribell Bonner MD Primary Care Provider [phone] Encounter Details Date Type Department Care Team (Late st Contact Info) Description 12/25/2022 Lab Requisition [facility] Pathology & Laboratory Medicine - [facility] [address] [place] [address] Olinda Hernandez MD [address] [place] [phone] Encounter for other general examination Social History [...] Priority Date/Time Associated Diagnosis Comments SURGICAL PATHOLOGY Today 12/25/2022 8: 30 EDT Encounter for other general examination documented in this encounter Results * SURGICAL PATHOLOGY (12/25/2022 8:30 EDT) Note to Patient The following pathology results have been interpreted by your pathologist and may be available to you before your health provider has had the opportunity to review them. Please allow time for your provider to receive these results and explore management options, if applicable. 12/28/2022 17:29 EDT [facility] Final Diagnosis A. ENDOCERVIX, CURETTAGE: - Scant specimen with benign endocervical cells and rare detached strips of atrophic/degenerat keny squamous epithelium. 12/28/2022 17:29 [facility] Diagnosis Comment Deeper sections have been examined of the block in an attempt to increase diagnostic yield. The specimen is very scant with few evaluable cells. Immunoperoxidase stains were performed on this case to confirm the morphologic impression of degenerative crushed benign epithelium. ANTIBODY(CLONE)(BL OCK):RESULT P16 (E6H4TM, [place]) (block A): negative NOTE: One or more of the reagents used in immunoperoxidase testing in this case may not have been cleared or approved by the U.S. Food and Drug Administration (FDA). The FDA has determined that such clearance or approval is not necessary. These tests are used for clinical purposes. They should not be regarded as investigational or for research. These reagents' performance characteristics have been determined by [facility] and/or by the referring laboratory. The positive and negative controls worked appropriately. If immunoperoxidase staining has been performed on alcohol fixed cytology specimens, which has not been fully validated, the assays should be interpreted with caution and correlated with clinical data. This laboratory is certified under the Clinical Laboratory Improvement Amendments of 1988 (CLIA-88) as qualified to perform high complexity clinical laboratory testing. 12/28/2022 17:29 [facility] Attestation There was significant resident/fellow involvement in the diagnostic evaluation of this case. By the signature below, the attending physician certifies that they have personally conducted a gross and/or microscopic examination of the described specimens and rendered or confirmed the above diagnosis. 12/28/2022 17:29 [facility] at 1729 Clinical History History of +HPV 12/28/2022 17:29 [facility] Gross Description A. Received in formalin labelled with proper patient identification (initials M, K) and endocx curettage is an aggregate of mildly blood-tinged mucus, 0.5 x 0.3 x 0.1 cm. Entirely submitted in A1. SHERIN RUTHERFORD(ASCP) 12/26/2022 7:09 12/28/2022 17:29 EDT [facility] Resident/Antwon w: Fer Virgen MD 12/28/2022 17:29 EDT [facility] Performing Lab [facility] 17:29 EDT [facility] Scanned Images 12/28/2022 17:29 EDT [facility] Tissue ENTIRE ENDOCERVIX / Unknown 12/25/2022 8:30 EDT 12/25/2022 18:02 EDT Olinda Hernandez MD PATHOLOGY ORDERAB LES [facility] [address] [place] [address] documented in this encounter Visit Diagnoses Diagnosis Encounter for other general examination documented in this encounter Care Teams Seafood Packer Relationship Specialty Start Date End Date Maribell Bonner MD [address] [place], [place] [id number] PCP - General 06/07/09 documented as of this encounter
--- OUTSIDE RECORDS SUMMARY | 2024-02-08 17:21 | XMS_ITS | Encounter Summary ---
[place] [address] Care Team Providers Care Civil Laboratory Technician Name Role Phone None Primary Care Provider Unavailabl e Encounter Details Date Type Department Care Team (Late st Contact Info) Description 07/14/2010 [place] [phone] Ann Rock MD GASTROENTEROLOGY Social History Tobacco Use Types Packs/Day Years [...] EST documented in this encounter Results * Surgical Pathology Report (07/14/2010 12:02 PM EST) Surgical Pathology Report [id number] ? Location: 4T The signing pathologist has (i) examined the relevant preparation(s) for the specimen(s) and (ii) rendered or confirmed the diagnosis(es). . ?Pathology Surgical Pathology Final Report Clinical Information Specimen Submitted: A - Mucosal biopsies, duodenum Clinical History: 49-year-old with dyspepsia and ? of sprue Clinical Diagnosis: Dyspepsia, GERD ? Gross Description Labeled/Fixativ e: ? Duodenum, formalin. Qty/Size/Weight : ?Five, ranging from 0.1 cm to 0.3 cm in ?greatest dimension. Tissue Description: ?? Soft, gordon tissues. Sections/Proces sing: ??(T1) ??vms/SNS Microscopic Description Slides reviewed, microscopic description not recorded. Diagnosis Endoscopic biopsy - ??Duodenal mucosa within normal limits, including preserved villous architecture. CR-0 07/15/10 AAS 07/15/10 Verified by: ? Silviano Barrera MD ?Pathologist ?(Electronic Signature) The attending pathologist whose signature appears on this report has reviewed all diagnostic slides and has edited the gross and/or microscopic portion of the report in rendering the final pathologic diagnosis. [facility]HA [facility] 07/14/2010 12:0 2 PM EST L Ryan Rock MD PATHOLOGY/CYTOLOGY O RDERACORINNE ISHA [facility]IS[facility] documented in this encounter Visit Diagnoses Not on filedocumented in this encounter Care Teams Civil Laboratory Technician Relationship Specialty Start Date End Date None None PCP - General 10/11/22 documented as of this encounter
--- OUTSIDE RECORDS SUMMARY | 2024-02-08 17:22 | XMS_ITS | Encounter Summary ---
Author Organization [facility] Address [address] [place] [address] Care Team Providers Care Director Product Development Name Role Phone Maribell Bonner MD Primary Care Provider [phone] Encounter Details Date Type Department Care Team (Late st Contact Info) Description 11/27/2014 Results Only [facility] [phone] Hayde Roberts MD [address] [place] [phone] Social History Tobacco Use Types Packs/Day Years Used Date Smoking Tobacco: Never Assessed Sex and Gender Information Value Date Recorded Sex Assigned at Not on file Gender Identity Not on file Sexual Orientation Not on file documented as of this encounter Plan of Treatment Not on file documented as of this encounter Procedures Procedure Name Priority Date/Time Associated Diagnosis Comments SURGICAL PATHOLOGY Routine 11/27/2014 17 :36 EDT documented in this encounter Results * SURGICAL PATHOLOGY (11/27/2014 17:36 EDT) Pathology Report: SURGICAL PATHOLOGY REPORT Reports generated via electronic interface contain original data; however they are lacking the format of the original report. Caution should be taken when reading/interpreting unformatted reports. Name: ? SHANTAL VARGAS ? Accession #: ? [id number] ? : ? 1960 (Age: 54) ??F ? Collect Date: ? 11/27/2014 ? Location: ? [facility] ? Receive Date: ? 11/30/2014 ? Provider: HAYDE ROBERTS MD Copy to: ? Final Pathologic Diagnosis: SKIN OF FOREARM, PUNCH BIOPSY: - Superficial perivascular dermatitis with mild epidermal spongiosis and reactive changes. ??See comment. Comment: The histopathologic features are most suggestive of eczematous dermatitis with mild epidermal spongiosis and sparse dermal inflammation. ??At one edge of the biopsy, there is a focus of reactive/reparative change suggestive of excoriation. ??Correlation with the clinical history is recommended. ??No neoplastic process is evident. (Dr. Shrestha)/[facility] Microscopic Description: Sections consist of a bisected punch biopsy of skin to the deep reticular dermis. ??The stratum corneum generally consists of normal basketweave orthokeratin. ??At one edge of the biopsy, there is crust. ??In this region, the epidermis shows reactive changes with tapered rete ridges. ??Other areas have slight spongiosis. ??The interface is generally intact. ??Within the dermis, there is a patchy, moderately dense perivascular infiltrate. ??The infiltrate is composed primarily of lymphomononuclear cells although a rare eosinophil is noted. ??There is solar elastosis. ??Multiple deeper sections show similar features. (Dr. Shrestha)/[facility] Document reviewed and electronically signed by: JEANNIE SHRESTHA MD Report ??Date: 12/03/2014 16:40 By the signature above, the attending physician certifies that he/she has personally conducted a gross and/or microscopic examination of the described specimens and rendered or confirmed the above diagnosis. Specimen(s) Received: Forearm Clinical History: Punch bx skin lesion Gross Description: ? Received in formalin labelled with proper patient identification (initials M, K) and left forearm is a punch biopsy of gordon-barahona skin (0.4 cm in diameter and 0.3 cm in thickness). ??The specimen is bisected and entirely submitted in 1. Dragan Hartley 12/01/2014 10:18 AM End of Report [facility] 11/27/2014 17:3 6 EDT 11/30/2014 17:36 EDT Hayde Roberts MD PATHOLOGY ORDERABLES [facility] [address] [place] [address] documented in this encounter Visit Diagnoses Not on filedocumented in this encounter Care Teams Director Product Development Relationship Specialty Start Date End Date Maribell Bonner MD [address] [place], [place] [id number] PCP - General 06/07/09 documented as of this encounter
--- OUTSIDE RECORDS SUMMARY | 2024-02-08 17:22 | XMS_ITS | Encounter Summary ---
Author Organization [facility] Address [address] [place] [address] Care Team Providers Care Marble Carver Name Role Phone Maribell Bonner MD Primary Care Provider [phone] Encounter Details Date Type Department Care Team (Latest Contact Info) Description 11/30/2014 16:32 EDT - 11/30/2014 23:59 EDT Hospital Encounter [address] [address] Unknown, Provider, Discharge Disposition: Home or Self Care Social History Tobacco Use Types Packs/Day Years Used Date Smoking Tobacco: Never Assessed Sex and Gender Information Value Date Recorded Sex Assigned at Not on file Gender Identity Not on file Sexual Orientation Not on file documented as of this encounter Discharge Disposition Disposition Code Departure Means Destination Home or Self Residential documented in this encounter Plan of Treatment Not on file documented as of this encounter Visit Diagnoses Not on filedocumented in this encounter Care Teams Marble Carver Relationship Specialty Start Date End Date Maribell Bonner MD [address] [place], [place] [address] PCP - General 06/07/09 documented as of this encounter
--- OUTSIDE RECORDS SUMMARY | 2024-02-08 17:22 | XMS_ITS | Encounter Summary ---
Author Organization [facility] Address [address] [place] [address] Care Team Providers Care Windrower Operator Name Role Phone Maribell Bonner MD Primary Care Provider Encounter Details Date Type Department Care Team (Late st Contact Info) Description 08/28/2002 Results Only [facility] [place] [facility] [address] [place] [address] Hema Meek MD [address] [place] [address] Social History Tobacco Use Types Packs/Day Years Used Date Smoking Tobacco: Never Assessed Sex and Gender Information Value Date Recorded Sex Assigned at Not on file Gender Identity Not on file Sexual Orientation Not on file documented as of this encounter Plan of Treatment Not on file documented as of this encounter Procedures Procedure Name Priority Date/Time Associated Diagnosis Comments SURGICAL PATHOLOGY Routine 08/28/2002 0:00 EST documented in this encounter Results * SURGICAL PATHOLOGY (08/28/2002 0:00 EST) Pathology Report: SURGICAL PATHOLOGY REPORT Reports generated via electronic interface contain original data; however they are lacking the format of the original report. Caution should be taken when reading/interpreti ng unformatted reports. Name: ? SHANTAL VARGAS ? Accession #: ? [id number] ? : ? 1960 (Age: 42) ??F ? Collect Date: ? 08/28/2002 ? Location: ? [facility] ? Receive Date: ? 08/29/2002 ? Provider: HEMA MEEK MD Copy to: SOLEDAD THOMPSON MD ? Final Pathologic Diagnosis: ? Appendix, appendectomy: 1. ?Marked acute appendicitis. 2. ?Marked acute penetrating appendiceal diverticulitis. Document reviewed and electronically signed by: HAYDE CANALES MD Report ??Date: 09/02/2002 17:36 By the signature above, the attending physician certifies that he/she has personally conducted a gross and/or microscopic examination of the described specimens and rendered or confirmed the above diagnosis. Specimen(s) Received: ? Appendix Clinical History: ? Acute appendicitis Gross Description: ? Received in formalin labelled Sam and appendix is a 4.5 x 1.3 .x 1.2 cm appendix with a small amount of attached appendiceal fat. ??The serosal surfaces are gordon-barahona and congested with adherent fibrinopurulent exudate. ??The margin of resection appears fragmented. ??The lumen is dilated, up to 0.5 cm and contains purulent fecal debris. ??The wall and mucosa are diffusely congested and focally necrotic. ??Numerous diverticula are noted in the distal third of the appendix. ??The diverticula do not appear grossly perforated. ??No fecaliths are grossly evident. ??Paper Bag Maker portions are submitted in a single cassette (distal margin inked blue). (Aston Mccall/jonnathan End of Report EZEQUIEL FRANCIS 08/28/2002 08/29/2002 15: 27 EST Hema Meek MD PATHOLOGY ORDERABLE S [facility] [address] [place] [address] documented in this encounter Visit Diagnoses Not on filedocumented in this encounter Care Teams Windrower Operator Relationship Specialty Start Date End Date Maribell Bonner MD [address] [place] [address] PCP - General 06/07/09 documented as of this encounter
--- OUTSIDE RECORDS SUMMARY | 2024-02-08 17:22 | XMS_ITS | Encounter Summary ---
Author Organization [facility] Address [address] [place] [address] Care Team Providers Care Animal Caregiver Name Role Phone Maribell Bonner MD Primary Care Provider [phone] Encounter Details Date Type Department Care Team (Late st Contact Info) Description 01/06/2010 Results Only [facility] Laboratory Services - [facility] ([facility] [address] [place], [place] [address] Jacoby Meek, DO [address] [facility] [address] [place], [place] [address] Social History Tobacco Use Types Packs/Day Years Used Date Smoking Tobacco: Never Assessed Sex and Gender Information Value Date Recorded Sex Assigned at Not on file Gender Identity Not on file Sexual Orientation Not on file documented as of this encounter Plan of Treatment Not on file documented as of this encounter Procedures Procedure Name Priority Date/Time Associated Diagnosis Comments SURGICAL PATHOLOGY Routine 01/06/2010 0:00 EDT documented in this encounter Results * SURGICAL PATHOLOGY (01/06/2010 0:00 EDT) Pathology Report: SURGICAL PATHOLOGY REPORT ? Reports generated via electronic interface contain original data; ? however they are lacking the format of the original report. ? Caution should be taken when reading/interpreti ng unformatted reports. ? Name: ? SHANTAL VARGAS ? Accession #: ? [id number] ? : ? 1960 (Age: 49) ??F ? Collect Date: ? 01/06/2010 ? Location: ? [facility] ? Receive Date: ? 01/07/2010 ? Provider: JACOBY MEEK DO ? Copy to: MARIBELL GRESSER MD ? Final Pathologic Diagnosis: ? Gallbladder, cholecystectomy: ? - Gallbladder with no specific pathologic findings. ? Document reviewed and electronically signed by: ? Cassi Michauda, MD ? Report ??Date: 01/11/2010 15:20 ? By the signature above, the attending physician certifies that he/she has ? personally conducted a gross and/or microscopic examination of the described ? specimens and rendered or confirmed the above diagnosis. ? Specimen(s) Received: ? Gallbladder ? Clinical History: ? Biliary dyskinesia ? Gross Description: ? Received in formalin labelled Shantal Vargas and gallbladder is the product of an intact cholecystectomy measuring 6.7 cm in length by 2.7 cm in ? diameter. ??The serosa is gordon-pink and glistening. ??The mucosa is gordon-green, ? smooth to velvety, and the underlying wall averages 0.2 cm in thickness. ??The ?? lumen contains a moderate amount of green mucoid bile with no choleliths grossly identified. ??The cystic duct measures 0.4 cm in length, 0.3 cm in diameter and ?? is not grossly patent. ??The cystic duct node is not identified. ??Three ? in store representative sections are submitted in one cassette which includes the inked ?? cystic duct margin en face and two sections of gallbladder. ??(Rhett Tong)/mms ? End of Report ? EZEQUIEL FRANCIS 01/06/2010 01/07/2010 9:1 0 EDT Jacoby Meek DO PATHOLOGY ORDER [facility] [address] [place] [address] documented in this encounter Visit Diagnoses Not on filedocumented in this encounter Care Teams Animal Caregiver Relationship Specialty Start Date End Date Maribell Bonner MD [address] [place] [address] PCP - General 06/07/09 documented as of this encounter
--- OUTSIDE RECORDS SUMMARY | 2024-02-08 17:22 | XMS_ITS | Encounter Summary ---
Author Organization [facility] Address [address] [place] [address] Care Team Providers Care Company Laundry Worker Name Role Phone Maribell Bonner MD Primary Care Provider [phone] Encounter Details Date Type Department Care Team (Late st Contact Info) Description 07/15/1999 Results Only [facility] [address] [place] [address] Patience Weaver, SWEEPER CLEANER INDUSTRIAL Social History Tobacco Use Types Packs/Day Years Used Date Smoking Tobacco: Never Assessed Sex and Gender Information Value Date Recorded Sex Assigned at Not on file Gender Identity Not on file Sexual Orientation Not on file documented as of this encounter Plan of Treatment Not on file documented as of this encounter Procedures Procedure Name Priority Date/Time Associated Diagnosis Comments CYTOPATHOLOGY Routine 07/15/1999 13:50 EST documented in this encounter Results * CYTOPATHOLOGY (07/15/1999 13:50 EST) Pathology Report: CYTOPATHOLOGY REPORT Reports generated via electronic interface contain original data; however they are lacking the format of the original report. Caution should be taken when reading/interpreti ng unformatted reports. Name: ? SHANTAL VARGAS ? Accession #: ? [id number] : ? 1960 (Age: 38) ??F ?Collect Date: ? 07/15/1999 Location: ?Receive Date: ? 07/15/1999 Provider: ?PATIENCE WEAVER NP Copy to: ?PATIENCE WEAVER NP ? Specimen/Source: ?Site Director ThinPrep Last Menstrual Period: ? GYNECOLOGIC ??CYTOPATHOLOGY ??REPORT Name: SHANTAL VARGAS ?[facility] : 1960 ?? 38Y F ?Client ID: [id number] SS#: ? Clinician: MANDIE WEAVER NP ?? Location: [facility] ??Copy to: ?? Specimen: ?Site Director ThinPrep ? Source: Cervix/Endocervix ?Collected: 07/14/99 ? Received: 07/15/1999 ?LMP: 06/27/99 ? Hormone Therapy: No ? : No ? Radiation Therapy: No ?? Post : No ?Chemotherapy: No ?IUD: No ? Prev Abnormal Pap: No ?? Clinical Hx: ?(Blank santizo indicate information not provided on requisition) SPECIMEN ADEQUACY: ? Satisfactory For Evaluation ?? GENERAL CATEGORIZATION: ? WITHIN NORMAL LIMITS ? Reviewed And Electronically Signed By: ? Chris Sunshine Jr., CT(ASCP) ? Report Date: ?? 07/15/1999 [facility] Archived Tests - Final Diagnosis Text Field: Clinical History : ? Document reviewed and electronically signed by: ? Conversion ? Report Date: ??07/15/1999 00:00 End of Report EZEQUIEL FRANCIS 07/15/1999 13:5 0 EST 07/15/1999 13:51 EST Patience Weaver SWEEPER CLEANER INDUSTRIAL PATHOLOGY ORDERABLES [facility] [address] [place] [address] documented in this encounter Visit Diagnoses Not on filedocumented in this encounter Care Teams Company Laundry Worker Relationship Specialty Start Date End Date Maribell Bonner MD [address] [place], [place] [phone] PCP - General 06/07/09 documented as of this encounter
--- OUTSIDE RECORDS SUMMARY | 2024-02-08 17:22 | XMS_ITS | Encounter Summary ---
Author Organization [facility] Address [address] [place] [address] Care Team Providers Care Hospice Superintendent Name Role Phone Maribell Bonner MD Primary Care Provider [phone] Encounter Details Date Type Department Care Team (Latest Contact Info) Description 04/06/2014 8:38 EDT - 04/06/2014 23:59 EDT Hospital Encounter [address] [address] Unknown, Provider, Discharge Disposition: Home or Self Care Social History Tobacco Use Types Packs/Day Years Used Date Smoking Tobacco: Never Assessed Sex and Gender Information Value Date Recorded Sex Assigned at Not on file Gender Identity Not on file Sexual Orientation Not on file documented as of this encounter Discharge Disposition Disposition Code Departure Means Destination Home or Self [place] documented in this encounter Plan of Treatment Not on file documented as of this encounter Visit Diagnoses Not on filedocumented in this encounter Care Teams Hospice Superintendent Relationship Specialty Start Date End Date Maribell Bonner MD [address] [place], [place] [address] PCP - General 06/07/09 documented as of this encounter
--- OUTSIDE RECORDS SUMMARY | 2024-02-08 17:22 | XMS_ITS | Encounter Summary ---
Author Organization [facility] Address [address] [place] [address] Care Team Providers Care Fixed Income Director Name Role Phone Maribell Bonner MD Primary Care Provider [phone] Encounter Details Date Type Department Care Team (Late st Contact Info) Description 08/21/2007 Results Only [facility] [address] [place] [address] Soledad Graves, LAURA S STANLEY [place], [place] [id number] Social History Tobacco Use Types Packs/Day Years Used Date Smoking Tobacco: Never Assessed Sex and Gender Information Value Date Recorded Sex Assigned at Not on file Gender Identity Not on file Sexual Orientation Not on file documented as of this encounter Plan of Treatment Not on file documented as of this encounter Procedures Procedure Name Priority Date/Time Associated Diagnosis Comments CYTOPATHOLOGY Routine 08/21/2007 0:00 EDT documented in this encounter Results * CYTOPATHOLOGY (08/21/2007 0:00 EDT) Pathology Report: CYTOPATHOLOGY REPORT Reports generated via electronic interface contain original data; however they are lacking the format of the original report. Caution should be taken when reading/interpreti ng unformatted reports. Name: ? SHANTAL VARGAS ? Accession #: ? [id number] : ? 1960 (Age: 47) ??F ?Collect Date: ? 08/21/2007 Location: ? [facility] ? Receive Date: ? 08/22/2007 Provider: ?SOLEDAD GRAVES SOCIAL MEDIA INTERN Copy to: ? [facility] ?[address] ?[place], [place] [address] ? Specimen/Source: ?ThinPrep Pap Test, Cervix/Endocervix, processed on [employer] ThinPrep Imaging System, with manual evaluation Last Menstrual Period: ? 08/13/07 Other: ? HPVA - HPV testing requested if ASC-US on the current ThinPrep Pap test. ? SPECIMEN ADEQUACY ? Satisfactory for Evaluation - transformation zone component present GENERAL CATEGORIZATION ? Negative for Intraepithelial Lesion or Malignancy ? Document reviewed and electronically signed by: ? Maribell Nguyen, SCT(ASCP) ? Report Date: ??08/27/2007 14:10 End of Report [facility] 08/21/2007 08/22/2007 Soledad Graves SOCIAL MEDIA INTERN PATHOLOGY ORDERA MADHUS [facility] [address] [place] [address] documented in this encounter Visit Diagnoses Not on filedocumented in this encounter Care Teams Fixed Income Director Relationship Specialty Start Date End Date Maribell Bonner MD [address] [place] [address] PCP - General 06/07/09 documented as of this encounter
--- OUTSIDE RECORDS SUMMARY | 2024-02-08 17:22 | XMS_ITS | Encounter Summary ---
Author Organization [facility] Address [address] [place] [address] Care Team Providers Care Applications Sales Representative Name Role Phone Maribell Bonner MD Primary Care Provider [phone] Encounter Details Date Type Department Care Team (Late st Contact Info) Description 09/04/2001 Results Only [facility] conversion [address] [place] [address] Hayde Causey MD [address] [place] [phone] Social History Tobacco Use Types Packs/Day Years Used Date Smoking Tobacco: Never Assessed Sex and Gender Information Value Date Recorded Sex Assigned at Not on file Gender Identity Not on file Sexual Orientation Not on file documented as of this encounter Plan of Treatment Not on file documented as of this encounter Procedures Procedure Name Priority Date/Time Associated Diagnosis Comments SURGICAL PATHOLOGY Routine 09/04/2001 0:00 EST documented in this encounter Results * SURGICAL PATHOLOGY (09/04/2001 0:00 EST) Pathology Report: SURGICAL PATHOLOGY REPORT Reports generated via electronic interface contain original data; however they are lacking the format of the original report. Caution should be taken when reading/interpreti ng unformatted reports. Name: ? SHANTAL VARGAS ? Accession #: ? [id number] ? : ? 1960 (Age: 41) ??F ? Collect Date: ? 09/04/2001 ? Location: ? [facility] ? Receive Date: ? 09/04/2001 ? Provider: LEI CAUSEY MD Copy to: HAYDE THOMPSON MD ? Final Pathologic Diagnosis: ? Colon, polyp 55 cm colon, polypectomy: - Markedly cauterized colonic mucosa non-diagnostic. ??See comment. Comment: ? Although one of the fragments of tissue is polypoid appearing, there is marked superimposed cautery artifact. ??No non-cauterized epithelium is present for evaluation of hyperplastic or adenomatous changes precluding definitive diagnosis. ??Clinical correlation is recommended. Document reviewed and electronically signed by: WISAM GRANADOS MD Report ??Date: 09/08/2001 14:18 By the signature above, the attending physician certifies that he/she has personally conducted a gross and/or microscopic examination of the described specimens and rendered or confirmed the above diagnosis. Specimen(s) Received: ? Bx polyp 55 cm colon Clinical History: ? Dx ??left groin pain; family hx colon CA Gross Description: ? Received in Hollande' s fixative labelled Sam and polyp 55 cm colon are multiple fragments of soft tissue which range in measurement from 0.1 x 0.1 x 0.1 cm to 0.4 x 0.3 x 0.1 cm. ??The specimen is submitted entirely in one cassette. ??(Dr. Rivera-SC)/mary End of Report [facility] 09/04/2001 09/04/2001 15: 08 EST Hayde Causey MD PATHOLOGY ORDERABLES [facility] [address] [place] [address] documented in this encounter Visit Diagnoses Not on filedocumented in this encounter Care Teams Applications Sales Representative Relationship Specialty Start Date End Date Maribell Bonner MD [address] [place] [address] PCP - General 06/07/09 documented as of this encounter
--- OUTSIDE RECORDS SUMMARY | 2024-02-08 17:22 | XMS_ITS | Encounter Summary ---
Author Organization [facility] Address [address] [place] [address] Care Team Providers Care Supervisor Dimension Warehouse Name Role Phone Maribell Bonner MD Primary Care Provider [phone] Encounter Details Date Type Department Care Team (Late st Contact Info) Description 02/03/2021 Lab Requisition [facility] Pathology & Laboratory Medicine - [facility] [address] [place], [place] [address] Outr Resulting Lab, Provider Social History Tobacco [...] Procedure Name Priority Date/Time Associated Diagnosis Comments T3 FREE Routine 02/03/2021 9:24 EDT documented in this encounter Results * (ABNORMAL) T3 FREE (02/03/2021 9:24 EDT) T3, Free 5.6(H) 2.8 - 5.3 pg/mL 02/03/2021 17:03 EDT [facility] Blood VENOUS BLOOD / Unknown 02/03/2021 9:24 EDT 02/03/2021 16:17 EDT Provider Outr Resulting Lab CHEMISTRY & BLOOD GAS ORDERABLES [facility] [address] [place] [address] documented in this encounter Visit Diagnoses Not on filedocumented in this encounter Care Teams Supervisor Dimension Warehouse Relationship Specialty Start Date End Date Maribell Bonner MD [address] [place] [address] PCP - General 06/07/09 documented as of this encounter
--- OUTSIDE RECORDS SUMMARY | 2024-02-08 17:22 | XMS_ITS | Encounter Summary ---
Author Organization [facility] Address [address] [place] [address] Care Team Providers Care Aquaculture Program Director Name Role Phone Maribell Rivers MD Primary Care Provider [phone] Encounter Details Date Type Department Care Team (Late st Contact Info) Description 07/11/2005 Results Only [facility] conversion [address] [place] [address] Dina Mason MD [address] [place] [address] [place] Social History Tobacco Use Types Packs/Day Years Used Date Smoking Tobacco: Never Assessed Sex and Gender Information Value Date Recorded Sex Assigned at Not on file Gender Identity Not on file Sexual Orientation Not on file documented as of this encounter Plan of Treatment Not on file documented as of this encounter Procedures Procedure Name Priority Date/Time Associated Diagnosis Comments SURGICAL PATHOLOGY Routine 07/11/2005 0:00 EST documented in this encounter Results * SURGICAL PATHOLOGY (07/11/2005 0:00 EST) Pathology Report: SURGICAL PATHOLOGY REPORT Reports generated via electronic interface contain original data; however they are lacking the format of the original report. Caution should be taken when reading/interpreti ng unformatted reports. Name: ? SHANTAL VARGAS ? Accession #: ? [id number] ? : ? 1960 (Age: 44) ??F ? Collect Date: ? 07/11/2005 ? Location: ? [facility] ? Receive Date: ? 07/11/2005 ? Provider: DINA MASON MD Copy to: MARIBELL RIVERS MD ? Final Pathologic Diagnosis: ? Endometrium, biopsy: 1. ?Secretory endometrium (day 23-24). 2. ?No hyperplasia identified. Document reviewed and electronically signed by: DENTON HAWTHORNE MD Report ??Date: 07/12/2005 17:53 By the signature above, the attending physician certifies that he/she has personally conducted a gross and/or microscopic examination of the described specimens and rendered or confirmed the above diagnosis. Specimen(s) Received: ? Endometrial bx Clinical History: ? Irregular periods; DUB; LMP: 06/11/05 Gross Description: ? Received in formalin labeled Sam and endometrial biopsy is a 3.0 x 2.5 x 0.5 cm aggregate of gordon-pink to red hemorrhagic tissue. ??The specimen is entirely submitted as (A1) and (A2). ??(Rhett Tong)/[facility] End of Report [facility] 07/11/2005 07/11/2005 15: 29 EST Dina Mason MD PATHOLOGY ORDERABLES [facility] [address] [place] [address] documented in this encounter Visit Diagnoses Not on filedocumented in this encounter Care Teams Aquaculture Program Director Relationship Specialty Start Date End Date Maribell Rivers MD [address] [place], [place] [id number] PCP - General 06/07/09 documented as of this encounter
--- OUTSIDE RECORDS SUMMARY | 2024-02-08 17:22 | XMS_ITS | Encounter Summary ---
Author Organization [facility] Address [address] [place] [address] Care Team Providers Care Associate Dean Of Women Name Role Phone Maribell Bonner MD Primary Care Provider [phone] Encounter Details Date Type Department Care Team (Late st Contact Info) Description 12/04/2014 Results Only [facility] [phone] Chris Priest MD [address] [place] [address],[address] [place], [place] [id number] Social History Tobacco Use Types Packs/Day Years Used Date Smoking Tobacco: Never Assessed Sex and Gender Information Value Date Recorded Sex Assigned at Not on file Gender Identity Not on file Sexual Orientation Not on file documented as of this encounter Plan of Treatment Not on file documented as of this encounter Procedures Procedure Name Priority Date/Time Associated Diagnosis Comments PAP TEST- RESULT ONLY Routine 12/04/2014 0:00 EDT documented in this encounter Results * PAP TEST- RESULT ONLY (12/04/2014 0:00 EDT) Pathology Report: CYTOPATHOLOGY REPORT Reports generated via electronic interface contain original data; however they are lacking the format of the original report. Caution should be taken when reading/interpreti ng unformatted reports. Name: ? SHANTAL VARGAS ? Accession #: ? [id number] ? : ? 1960 (Age: 54) ??F ?Collect Date: ? 12/04/2014 ? Location: ? [facility] ? Receive Date: ? 12/07/2014 ? Provider: CHRIS PRIEST MD Copy to: KOBY RENEE MD ? Final Report SPECIMEN ADEQUACY ? Satisfactory for Evaluation - transformation zone component present GENERAL CATEGORIZATION ? Negative for Intraepithelial Lesion or Malignancy ?? Last Menstrual Period: 11/10/14 Specimen/Source: ??Pap Test, Cervix/Endocervix, ThinPrep Imaging System with manual evaluation Document reviewed and electronically signed by: ? Lele Romero, [place](ASCP) ? Report ??Date: 12/15/2014 12:58 HPV with Pap Test ? Date Ordered: ? 12/15/2014 ? Status: ?? Signed Out ?Date Complete: ? 12/16/2014 ? By: ??System Interface ? Date Reported: ? 12/16/2014 ? Interpretation RESULT: Negative for HPV. No E6 or E7 mRNA is detected from HPV types 16,18,31,33,35, 39,45,51,52,56,58, 59,66, and 68 by rn telehealth mediated amplification. Comments Document reviewed and electronically signed by: ? System Interface ? Report date: 12/16/2014 By the signature above, the attending physician certifies that he/she has personally conducted a gross and/or microscopic examination of the described specimens and rendered or confirmed the above diagnosis. End of Report [facility] 12/04/2014 12/07/2014 Chris Priest MD PATHOLOGY ORDERABLES [facility] [address] [place] [address] documented in this encounter Visit Diagnoses Not on filedocumented in this encounter Care Teams Associate Dean Of Women Relationship Specialty Start Date End Date Maribell Bonner MD [address] [place], [place] [id number] PCP - General 06/07/09 documented as of this encounter
--- OUTSIDE RECORDS SUMMARY | 2024-02-08 17:22 | XMS_ITS | Encounter Summary ---
Author Organization [facility] Address [address] [place] [address] Care Team Providers Care Tariff Clerk Name Role Phone Maribell Bonner MD Primary Care Provider [phone] Encounter Details Date Type Department Care Team (Late st Contact Info) Description 12/23/2018 Results Only [facility] [phone] Rakesh Quiles MD [address] [place] [address] Social History Tobacco Use Types Packs/Day Years Used Date Smoking Tobacco: Never Assessed Sex and Gender Information Value Date Recorded Sex Assigned at Not on file Gender Identity Not on file Sexual Orientation Not on file documented as of this encounter Plan of Treatment Not on file documented as of this encounter Procedures Procedure Name Priority Date/Time Associated Diagnosis Comments SURGICAL PATHOLOGY Routine 12/23/2018 16 :38 EDT documented in this encounter Results * SURGICAL PATHOLOGY (12/23/2018 16:38 EDT) Pathology Report: SURGICAL PATHOLOGY REPORT Reports generated via electronic interface contain original data; however they are lacking the format of the original report. Caution should be taken when reading/interpret ing unformatted reports. Name: ? SHANTAL VARGAS ? Accession #: ? [id number] ? : ? 1960 (Age: 58) ??F ? Collect Date: ? 12/23/2018 ? Location: ? [facility] ? Receive Date: ? 12/23/2018 ? Provider: RAKESH QUILES MD Copy to: HAYDE ROBERTS MD ? Final Pathologic Diagnosis: ENDOMETRIUM, BIOPSY: - Inactive endometrium. Document reviewed and electronically signed by: MARLY RUSH MD Report ??Date: 12/25/2018 10:38 By the signature above, the attending physician certifies that he/she has personally conducted a gross and/or microscopic examination of the described specimens and rendered or confirmed the above diagnosis. Specimen(s) Received: Endometrial bx Clinical History: Mild endometrial thickening Gross Description: ? Received in formalin labelled with proper patient identification (initials M, K) and endometrial bx is an aggregate of wispy gordon tissue (0.2 x 0.2 x 0.1 cm). Submitted entirely in 1. Please note: The tissue may not survive processing. SHERIN Sosa (ASCP) 12/23/2018 4:57 PM End of Report [facility] 12/23/2018 16:3 8 EDT 12/23/2018 16:38 EDT Rakesh Quiles MD PATHOLOGY ORDERABLES Performing Organization Address City/State/[facility] Co de Phone Number [facility] [address] [place] [address] documented in this encounter Visit Diagnoses Not on filedocumented in this encounter Care Teams Tariff Clerk Relationship Specialty Start Date End Date Maribell Bonner MD [address] [place] [address] PCP - General 06/07/09 documented as of this encounter
--- OUTSIDE RECORDS SUMMARY | 2024-02-08 17:22 | XMS_ITS | Encounter Summary ---
Author Organization [facility] Address [address] [place] [address] Care Team Providers Care Terrazzo Installer Name Role Phone Maribell Bonner MD Primary Care Provider [phone] Encounter Details Date Type Department Care Team (Late st Contact Info) Description 03/29/2020 Lab Requisition [facility] Pathology & Laboratory Medicine - [facility] [address] [place] [address] Leora Delong, ORNAMENTAL METAL ERECTOR APPRENTICE [address] [place] [phone] Encounter for other general examination Social History [...] Date/Time Associated Diagnosis Comments PAP TEST Today 03/25/2020 11:30 EDT Encounter for other general examination HPV GENOTYPES 16 AND 18/45 Today 03/25/2020 11:30 EDT Encounter for other general examination HPV DNA DETECTION WITH GENOTYPING, PCR Today 03/25/2020 11:30 EDT Encounter for other general examination documented in this encounter Results * HPV GENOTYPES 16 AND 18/45 (03/25/2020 11:30 EDT) HPV High Risk type 16, PCR Negative Negative 05/03/2020 15:09 [facility] HPV18/45 RNA (HPV18/45) Negative Negative 05/03/2020 15:09 [facility] Papanicolaou smear specimen (specimen) CERVIX UTERI STRUCTURE / Unknown 03/25/2020 11:30 EDT 04/02/2020 10:24 EDT Leora Delong NP MICROBIOLOGY - GENER AL ORDERABLES Performing Organization Address [facility] de Phone Number [facility] [address] [place] [address] * (ABNORMAL) HUMAN PAPILLOMAVIRUS (HPV) DETECTION-HIGH RISK TYPES (03/25/2020 11:30 EDT) HPV other High Risk types, PCR Positive( A) Negative 05/03/2020 15:09 [facility] Comment:E6 OR E7 mRNA from o ne or more types of HPV types 16,18,31,33,35,39,45,51,52,56,58,59,66, and 68 is detected by bsa/aml compliance officer mediated amplification. High and intermediate risk HPV types are associated with most squamous intraepithelial lesions and cervical cancers. Papanicolaou smear specimen (specimen) CERVIX UTERI STRUCTURE / Unknown 03/25/2020 11:30 EDT 04/02/2020 10:24 EDT Leora Delong NP MICROBIOLOGY - GENER AL ORDERABLES Performing Organization Address [facility] Co de Phone Number [facility] [address] [place] [address] * PAP TEST (03/25/2020 11:30 EDT) Specimens A. Cervix and/or Endocervix , ThinPrep Imaging System with Manual Evaluation 05/03/2020 15:09 [facility] Specimen Adequacy Satisfactory for Evaluation - transformation zone component present 05/03/2020 15:09 [facility] General Categorization Negative for intraepithelial lesion or malignancy 05/03/2020 15:09 [facility] Attestation . 05/03/2020 15:09 [facility] at 1509 Clinical History See below 05/03/20 20 15:09 [facility] HPV The result for the Human Papillomavirus (HPV) Detection-High Risk Types is Positive . E6 OR E7 mRNA from one or more types of HPV types 16,18,31,33,35,39 ,45,51,52,56,58,5 9,66, and 68 is detected by bsa/aml compliance officer mediated amplification. High and intermediate risk HPV types are associated with most squamous intraepithelial lesions and cervical cancers. Testing was performed on specimen [id number] and was resulted on 04/06/2020 0711 EDT by MADHURI, LAB INSTRUMENT RESULTS IN 05/03/2020 15:09 [facility] Genotyping 16 & 18/45 The results for the HPV Genotypes 16 and 18/45 are Negative for the HPV16 RNA and Negative for the HPV18/45 RNA (HPV18/45). Testing was performed on specimen [id number] and was resulted on 05/03/2020 1509 EST by YOLANDA WILL 05/03/2020 15:09 [facility] Performing Lab [facility] 05/03/2020 15:09 [facility] Scanned Images 05/03/2020 15:09 [facility] Papanicolaou smear specimen (specimen) CERVIX UTERI STRUCTURE / Unknown 03/25/2020 11:30 EDT 03/29/2020 11:16 EDT Leora Delong ORNAMENTAL METAL ERECTOR APPRENTICE PATHOLOGY ORDERABLES [facility] [address] [place] [address] documented in this encounter Visit Diagnoses Diagnosis Encounter for other general examination documented in this encounter Care Teams Terrazzo Installer Relationship Specialty Start Date End Date Maribell Bonner MD [address] [place] [address] PCP - General 06/07/09 documented as of this encounter
--- OUTSIDE RECORDS SUMMARY | 2024-02-08 17:22 | XMS_ITS | Encounter Summary ---
Author Organization [facility] Address [address] [place] [address] Care Team Providers Care Special Crimes Investigator Name Role Phone Maribell Bonner MD Primary Care Provider [phone] Encounter Details Date Type Department Care Team (Late st Contact Info) Description 12/06/2018 Results Only [facility] [phone] Rakesh Quiles MD [address] [place] [id number] Social History Tobacco Use Types Packs/Day Years [...] Diagnosis Comments PAP TEST- RESULT ONLY Routine 12/06/2018 0:00 EDT documented in this encounter Results * PAP TEST- RESULT ONLY (12/06/2018 0:00 EDT) Pathology Report: CYTOPATHOLOGY REPORT Reports generated via electronic interface contain original data; however they are lacking the format of the original report. Caution should be taken when reading/interpreti ng unformatted reports. Name: ? SHANTAL VARGAS ? Accession #: ? [id number] ? : ? 1960 (Age: 58) ??F ?Collect Date: ? 12/06/2018 ? Location: ? [facility] ? Receive Date: ? 12/09/2018 ? Provider: RAKESH QUILES MD Copy to: HAYDE ROBERTS MD ? Final Report SPECIMEN ADEQUACY ? Satisfactory for Evaluation - assessment of transformation zone component not applicable ( e.g. atrophy, vaginal sample, hysterectomy) GENERAL CATEGORIZATION ? Negative for Intraepithelial Lesion or Malignancy ?? Last Menstrual Period: 4 YRS AGO Specimen/Source: ??Pap Test, Cervix, ThinPrep Imaging System with manual evaluation Document reviewed and electronically signed by: ? Ruby Thomas, [facility](ASCP) ? Report ??Date: 12/11/2018 15:41 HPV with Pap Test ? Date Ordered: ? 12/11/2018 ? Status: ?? Signed Out ?Date Complete: ? 12/14/2018 ? By: ??System Interface ? Date Reported: ? 12/14/2018 ? Interpretation RESULT: POSITIVE FOR HIGH OR INTERMEDIATE RISK HPV. E6 OR E7 mRNA from one or more types of HPV types 16,18,31, 33,35,39,45,51,52, 56,58,59,66, and 68 is detected by video game maker mediated amplification. High and intermediate risk HPV types are associated with most squamous intraepithelial lesions and cervical cancers. Comments Document reviewed and electronically signed by: ? System Interface ? Report date: 12/14/2018 By the signature above, the attending physician certifies that he/she has personally conducted a gross and/or microscopic examination of the described specimens and rendered or confirmed the above diagnosis. End of Report [facility] 12/06/2018 12/09/2018 Rakesh Quiles MD PATHOLOGY ORDERABLES [facility] [address] [place] [address] documented in this encounter Visit Diagnoses Not on filedocumented in this encounter Care Teams Special Crimes Investigator Relationship Specialty Start Date End Date Maribell Bonner MD [address] [place] [address] PCP - General 06/07/09 documented as of this encounter
--- OUTSIDE RECORDS SUMMARY | 2024-02-08 17:22 | XMS_ITS | Encounter Summary ---
Author Organization [facility] Address [address] [place] [address] Care Team Providers Care School Superintendent Name Role Phone Maribell Rivers MD Primary Care Provider [phone] Encounter Details Date Type Department Care Team (Late st Contact Info) Description 07/12/2011 Results Only [facility] Laboratory Services - [facility] ([facility] [place] [address] [place], [place] [address] Maribell Rivers MD [address] [place] [address] Social History Tobacco Use Types Packs/Day Years [...] Diagnosis Comments PAP TEST- RESULT ONLY Routine 07/12/2011 0:00 EST documented in this encounter Results * PAP TEST- RESULT ONLY (07/12/2011 0:00 EST) Pathology Report: CYTOPATHOLOGY REPORT Reports generated via electronic interface contain original data; however they are lacking the format of the original report. Caution should be taken when reading/interpreti ng unformatted reports. Name: ? SHANTAL VARGAS ? Accession #: ? [id number] ? : ? 1960 (Age: 50) ??F ?Collect Date: ? 07/12/2011 ? Location: ? [facility] ? Receive Date: ? 07/13/2011 ? Provider: MARIBELL RIVERS MD Copy to: ? Final Report SPECIMEN ADEQUACY ? Satisfactory for Evaluation - assessment of transformation zone component not applicable ( e.g. atrophy, vaginal sample, hysterectomy) GENERAL CATEGORIZATION ? Negative for Intraepithelial Lesion or Malignancy ?? Last Menstural Period: 07/03/11 Treatment History: Miscellaneous treatment: 06/16 DUB negative endobx. Specimen/Source: ??Pap Test, Cervix/Endocervix, ThinPrep Imaging System with manual evaluation Document reviewed and electronically signed by: ? DENG Werner(ASCP) ? Report ??Date: 07/17/2011 12:47 HPV with Pap Test ? Date Ordered: ? 07/17/2011 ? Status: ?? Signed Out ?Date Complete: ? 07/20/2011 ? By: ??System Interface ? Date Reported: ? 07/20/2011 ? Interpretation RESULT: Negative for HPV types 16, 18, 31, 33, 35, 39, 45, 51, 52, 56, 58, 59, and 68. Comments Document reviewed and electronically signed by: ? System Interface ? Report date: 07/20/2011 By the signature above, the attending physician certifies that he/she has personally conducted a gross and/or microscopic examination of the described specimens and rendered or confirmed the above diagnosis. End of Report [facility] 07/12/2011 07/13/2011 Maribell Rivers MD PATHOLOGY ORDERABLES Performing Organization Address City/State/[facility] Co de Phone Number [facility] [address] [place] [address] documented in this encounter Visit Diagnoses Not on filedocumented in this encounter Care Teams School Superintendent Relationship Specialty Start Date End Date Maribell Rivers MD [address] [place] [id number] PCP - General 06/07/09 documented as of this encounter
--- OUTSIDE RECORDS SUMMARY | 2024-02-08 17:22 | XMS_ITS | Encounter Summary ---
Author Organization [facility] Address [address] [place] [address] Care Team Providers Care Student Nurse Name Role Phone Unavailable Primary Care Provider Unavailabl e Encounter Details Date Type Department Care Team (Late st Contact Info) Description 09/09/2008 Before PRISM Converted Visit (Map[facility]) [facility] - Maple conversion [address] [place] [address] Maribell Rivers MD [address] [place], [place] [id number] Social History Tobacco Use Types Packs/Day Years Used Date Smoking Tobacco: Never Assessed Sex and Gender Information Value Date Recorded Sex Assigned at Not on file Gender Identity Not on file Sexual Orientation Not on file documented as of this encounter Plan of Treatment Not on file documented as of this encounter Procedures Procedure Name Priority Date/Time Associated Diagnosis Comments HPV DETECTION, HIGH RISK TYPES Routine 09/09/2008 11:28 EDT CYTOPATHOLOGY Routine 09/09/2008 0:00 EDT documented in this encounter Results * HUMAN PAPILLOMA VIRUS DNA TEST (09/09/2008 11:28 EDT) Specimen Description Cervix, ThinPrep vial [facility] Result Negative for HPV types 16, 18, 31, 33, 35, 39, 45, 51, 52, 56, 58, 59, and 68. [facility] Report Status Final 09/22/2008 [facility] 09/09/2008 11:2 8 EDT 09/16/2008 11:28 EDT Maribell Rivers MD MICROBIOLOGY - GENER AL ORDERABLES [facility] [address] [place] [address] * CYTOPATHOLOGY (09/09/2008 0:00 EDT) Pathology Report: CYTOPATHOLOGY REPORT ? Reports generated via electronic interface contain original data; ? however they are lacking the format of the original report. ? Caution should be taken when reading/interpreti ng unformatted reports. ? Name: ? SHANTAL VARGAS ? Accession #: ? [id number] ? : ? 1960 (Age: 48) ??F ?Collect Date: ? 09/09/2008 ? Location: ? [facility] ? Receive Date: ? 09/11/2008 ? Provider: ?MARIBELL RIVERS MD ? Copy to: ? [facility] [facility] ?[address] ?[place], ?? [place] [address] ? Specimen/Source: ?Pap Test, Cervix/Endocervix, ThinPrep Imaging System ? with manual evaluation ? Last Menstrual Period: ? 03/09 ? Other: ? Additional clinical information: Hx of Condylomata @ 20. Abnl periods. ? HPVDX - HPV testing requested regardless of diagnosis on current ThinPrep Pap ?? test. ? SPECIMEN ADEQUACY ? Satisfactory for Evaluation ? - transformation zone component present ? GENERAL CATEGORIZATION ? Negative for Intraepithelial Lesion or Malignancy ? Document reviewed and electronically signed by: ? Yahaira Cairo, [place](ASCP) ? Report Date: ??09/15/2008 07:15 ? End of Report ? [facility] 09/09/2008 09/11/2008 Maribell Rivers MD PATHOLOGY ORDERABLES Performing Organization Address City/State/[facility] Co de Phone Number [facility] [address] [place] [phone] documented in this encounter Visit Diagnoses Not on filedocumented in this encounter
--- OUTSIDE RECORDS SUMMARY | 2024-02-08 17:22 | XMS_ITS | Encounter Summary ---
Author Organization [facility] Address [address] [place] [address] Care Team Providers Care Motor Installer Name Role Phone Maribell Bonner MD Primary Care Provider [phone] Encounter Details Date Type Department Care Team (Latest Contact Info) Description 12/24/2018 14:39 EDT - 12/24/2018 23:59 EDT Hospital Encounter [address] [address] Unknown, Provider, Discharge Disposition: Home or Self Care Social History Tobacco Use Types Packs/Day Years Used Date Smoking Tobacco: Never Assessed Sex and Gender Information Value Date Recorded Sex Assigned at Not on file Gender Identity Not on file Sexual Orientation Not on file documented as of this encounter Discharge Disposition Disposition Code Departure Means Destination Home or Self Assisted documented in this encounter Plan of Treatment Not on file documented as of this encounter Visit Diagnoses Not on filedocumented in this encounter Care Teams Motor Installer Relationship Specialty Start Date End Date Maribell Bonner MD [address] [place], [place] [address] PCP - General 06/07/09 documented as of this encounter
--- OUTSIDE RECORDS SUMMARY | 2024-02-08 17:22 | XMS_ITS | Encounter Summary ---
Author Organization [facility] Address [address] [place] [address] Care Team Providers Care Tools Administrator Name Role Phone Maribell Bonner MD Primary Care Provider Encounter Details Date Type Department Care Team (Late st Contact Info) Description 04/06/2014 Results Only [facility] Laboratory Services - [facility] ([facility] [place]) [address] [place], [place] [id number] Jacoby Meek, DO [address] [facility] [address] [place], [place] [address] Social History Tobacco Use Types Packs/Day Years Used Date Smoking Tobacco: Never Assessed Sex and Gender Information Value Date Recorded Sex Assigned at Not on file Gender Identity Not on file Sexual Orientation Not on file documented as of this encounter Plan of Treatment Not on file documented as of this encounter Procedures Procedure Name Priority Date/Time Associated Diagnosis Comments SURGICAL PATHOLOGY Routine 04/06/2014 8:46 EDT documented in this encounter Results * SURGICAL PATHOLOGY (04/06/2014 8:46 EDT) Pathology Report: SURGICAL PATHOLOGY REPORT Reports generated via electronic interface contain original data; however they are lacking the format of the original report. Caution should be taken when reading/interpreti ng unformatted reports. Name: ? SHANTAL VARGAS ? Accession #: ? [id number] ? : ? 1960 (Age: 53) ??F ? Collect Date: ? 04/06/2014 ? Location: ? [facility] ? Receive Date: ? 04/08/2014 ? Provider: JACOBY MEEK DO Copy to: KOBY RENEE MD ? Final Pathologic Diagnosis: OMENTUM, RESECTION: - Omental adipose and fibrovascular tissue with focal acute hemorrhage. Document reviewed and electronically signed by: Cassi Murphy MD Report ??Date: 04/09/2014 16:50 By the signature above, the attending physician certifies that he/she has personally conducted a gross and/or microscopic examination of the described specimens and rendered or confirmed the above diagnosis. Specimen(s) Received: Omentum from hernia sac Clinical History: Hernia right groin Gross Description: ? Received in formalin labelled with proper patient identification (initials M, K) and omentum from hernia sac is a portion of gordon-yellow glistening lobulated omentum (16.4 x 10.6 x 1.2 cm). Sectioning reveals an eccentric area of hemorrhage (1.9 x 1.7 x 0.6 cm). Vegetable Grader sections are submitted as [address] Swanson 04/08/2014 10:29 AM End of Report [facility] 04/06/2014 8:46 EDT 04/08/2014 8:46 EDT Jacoby Meek DO PATHOLOGY ORDER [facility] [address] [place] [address] documented in this encounter Visit Diagnoses Not on filedocumented in this encounter Care Teams Tools Administrator Relationship Specialty Start Date End Date Maribell Bonner MD [address] [place] [address] PCP - General 06/07/09 documented as of this encounter
--- OUTSIDE RECORDS SUMMARY | 2024-02-08 17:22 | XMS_ITS | Encounter Summary ---
Author Organization [facility] Address [address] [place] [address] Care Team Providers Care Telemarketing Fundraiser Name Role Phone Unavailable Primary Care Provider Unavailabl e Encounter Details Date Type Department Care Team (Late st Contact Info) Description 06/01/2009 Orders Only [facility] Laboratory Services - [facility] [place] [place] [address] [place], [place] [address] Jacoby Meek, [address] [facility] [address] [place], [place] [id number] Social History Tobacco Use Types Packs/Day Years Used Date Smoking Tobacco: Never Assessed Sex and Gender Information Value Date Recorded Sex Assigned at Not on file Gender Identity Not on file Sexual Orientation Not on file documented as of this encounter Plan of Treatment Not on file documented as of this encounter Procedures Procedure Name Priority Date/Time Associated Diagnosis Comments SURGICAL PATHOLOGY Routine 06/01/2009 0:00 EST documented in this encounter Results * SURGICAL PATHOLOGY (06/01/2009 0:00 EST) Pathology Report: SURGICAL PATHOLOGY REPORT ? Reports generated via electronic interface contain original data; ? however they are lacking the format of the original report. ? Caution should be taken when reading/interpreti ng unformatted reports. ? Name: ? SAM, SHANTAL M ? Accession #: ? [id number] ? : ? 1960 (Age: 48) ??F ? Collect Date: ? 06/01/2009 ? Location: ? [facility] ? Receive Date: ? 06/01/2009 ? Provider: JACOBY MEEK DO ? Copy to: FEDERICO GRESSER MD ? Final Pathologic Diagnosis: ? A. ?Gastric antrum, biopsies: ? 1. ?No pathologic features. ? B. ?Esophagus, distal, biopsies: ? 1. ?No pathologic features. ? C. ?Esophagus, mid, biopsies: ? 1. ?No pathologic features. ? D. ?Esophagus, proximal, biopsies: ? 1. ?No pathologic features. ? Document reviewed and electronically signed by: ? Kapil B. Kristal, MD ? Report ??Date: 06/07/2009 14:42 ? By the signature above, the attending physician certifies that he/she has ? personally conducted a gross and/or microscopic examination of the described ? specimens and rendered or confirmed the above diagnosis. ? Specimen(s) Received: ? A. ?Bx antrum ? B. ? Bx distal esophagus ? C. ? Bx mid esophagus ? D. ? Bx proximal esophagus ? Clinical History: ? Epigastric pain ? Gross Description: ? Received in [employer]'s fixative labelled SamShantal and antrum ?? bx are two gordon-pink irregular soft tissues measuring 0.2 x 0.2 x 0.1 cm and 0.8 x 0.2 x 0.1 cm. ??The specimens are submitted entirely as (A). ? Received in [employer]'s fixative labelled Shantal Vargas and bx distal ? esophagus are three gordon-pink irregular soft tissues ranging from 0.4 x 0.3 x ?? 0.1 cm to 0.6 x 0.1 x 0.1 cm. ??The specimens are submitted entirely as (B). ? Received in [employer]'s fixative labelled SamMonikaShantal and bx mid ? esophagus are two gordon-pink irregular soft tissues each measuring 0.4 x 0.1 x ?? 0.1 cm. ??The specimens are submitted entirely as (C). ? Received in [employer]'s fixative labelled Sam, Shantal and bx proximal ?? esophagus are two gordon-pink irregular soft tissues each measuring 0.5 x 0.2 x ?? 0.1 cm. ??The specimens are submitted entirely as (D). (Sergei Fatima)/mpl ? End of Report ? [facility] 06/01/2009 06/01/2009 8:5 5 EST Jacoby Meek DO PATHOLOGY ORDER [facility] [address] [place] [address] documented in this encounter Visit Diagnoses Not on filedocumented in this encounter
--- OUTSIDE RECORDS SUMMARY | 2024-02-08 17:22 | XMS_ITS | Encounter Summary ---
Author Organization [facility] Address [address] [place] [address] Care Team Providers Care Crematorium Operator Name Role Phone Maribell Bonner MD Primary Care Provider [phone] Encounter Details Date Type Department Care Team (Late st Contact Info) Description 09/07/2020 Lab Requisition [facility] Pathology & Laboratory Medicine - [facility] [address] [place] [address] Outr Resulting Lab, Provider Social History Tobacco [...] Procedure Name Priority Date/Time Associated Diagnosis Comments ZZCOVID-19 TEST [facility] PCR Today 09/07/2020 9:57 EDT COVID-19 TESTING Routine 09/07/2020 9:57 EDT documented in this encounter Results * COVID-19 TEST [facility] PCR (09/07/2020 9:57 EDT) Swab ENTIRE NASOPHARYNX / Unknown 09/07/2020 9:57 EDT 09/07/2020 16:26 EDT Provider Outr Resulting Lab MICROBIOLOGY - GENERAL ORDERABLES [facility] [address] [place] [address] * COVID-19 TESTING (09/07/2020 9:57 EDT) COVID-19 rt-PCR Result Negative Negative 09/08/2020 15:48 EDT [facility] Comment: This test has not been FDA cleared or approved. This test has been authorized by FDA under an EUA for use by authorized laboratories. This test has been authorized only for detection of nucleic acid from 2019-nCoV, not for any other viruses or pathogens. This test is only authorized for the duration of the declaration that circumstances exist justifying the authorization of emergency use of in vitro diagnostic tests for detection and/or diagnosis of 2019-nCoV under section 564(b)(1) of Act, 21 U.S.C ?? 360bbb-3(b) (1), unless the authorization is terminated or revoked sooner. Negative results do not preclude 2019-nCoV infection and should not be used as the sole basis for treatment or other patient management decisions. Negative results must be combined with clinical observations, patient history, and epidemiological information. This test was developed and its performance characteristics determined by [facility]. It has not been cleared or approved by the US Food and Drug Administration. FDA does not require this test to go through premarket FDA review. This test is used for clinical purposes. It should not be regarded as investigational or for research. This laboratory is certified under the Clinical Laboratory Improvement Amendments (CLIA) as qualified to perform high complexity clinical laboratory testing. This test is based on the [facility] COVID-19 Emergency Use Authorization (EUA) assay, with minor modification as defined by the FDA Performed on the The X Traino 7 Flex RT-PCR System. Performing Lab [facility] 09/08/2020 15:48 EDT [facility] Swab 09/07/2020 9:57 EDT 09/07/2020 16:26 EDT Provider Outr Resulting Lab MICROBIOLOGY - GENERAL ORDERABLES [facility] [address] [place] [address] documented in this encounter Visit Diagnoses Not on filedocumented in this encounter Care Teams Crematorium Operator Relationship Specialty Start Date End Date Gresser, Maribell L, MD [address] [place] [address] PCP - General 06/07/09 documented as of this encounter
== END 2024-02-08 17:09 | disposition home or self-care (01) ==
LOC: LBN 17:08
PROVIDERS: PCP Nurse Practitioner Family; Visit Provider Nurse Practitioner Family
DX: Z12.11 Encounter for screening for malignant neoplasm of colon (principal); L98.9 Disorder of the skin and subcutaneous tissue, unspecified
CPT/HCPCS: 88305

== ENCOUNTER 2024-08-19 08:39 | Outpatient (CLI) | payer BC, SELFPAY ==
--- NOTE | 2024-08-19 08:30 | RT.EKG_ITS ---
APPROVED REPORT Exam: Resting ECG Reason for Exam: pre op Patient Location: O HR:81 bpm ECG Measurements Heart Rate 81 AXIS CO 204 P 78 QRSd 77 QRS 20 QT 362 T 55 QTc 421 Conclusion Sinus rhythm...normal P axis, V-rate 50- 99 Low voltage, extremity and precordial leads...extremity<0.5mV, precordial<1.0mV Abnormal R-wave progression, early transition...QRS area>0 in V2
== END 2024-08-19 08:40 | disposition home or self-care (01) ==
LOC: DI.CM 08:39
PROVIDERS: PCP Nurse Practitioner Family; Visit Provider Nurse Practitioner Family
DX: Z01.818 Encounter for other preprocedural examination (principal)
CPT/HCPCS: 93010

== ENCOUNTER 2024-08-19 11:08 | Outpatient (REF) | payer BC, SELFPAY ==
[2024-08-19 14:30] LABS: HCT 38.7 % (36.0-46.0); HGB 12.5 g/dL (11.2-15.7); MCH 30.2 pg (27.0-33.0); MCHC 32.3 % (32.0-36.0); MCV 94 fL (80-95); MPV 11.7 fL (8.0-11.0); Platelet Count 286 10^3/uL (130-400); RBC 4.14 10^6/uL (3.93-5.22); RDW 12.9 % (11.7-14.6); RDW-SD 44.5 fL
[2024-08-19 16:54] LABS: Anion Gap 9.8 mmol/L (3-11); BUN 20 mg/dL (7-18); CO2 26.2 mmol/L (21.0-32.0); CREATININE 0.6 mg/dL (0.55-1.02); Calcium 9.4 mg/dL (8.5-10.1); Chloride 108 mmol/L (98-107); Estimated GFR 100.17 (mL/min/1.73m2); Glucose 70 mg/dL (74-106); Potassium 4.4 mmol/L (3.5-5.1); Sodium 144 mmol/L (136-145)
== END 2024-08-19 11:09 | disposition home or self-care (01) ==
LOC: LBN 11:08
PROVIDERS: PCP Nurse Practitioner Family; Visit Provider Nurse Practitioner Family
DX: I10 Essential (primary) hypertension (principal); M25.552 Pain in left hip
CPT/HCPCS: 80048; 85027

== ENCOUNTER 2024-09-24 09:28 | Outpatient (CLI) | payer BC, SELFPAY ==
[2024-09-25 10:56] LABS: Lyme Ab w Rflx to Lyme Confirm Negative (Negative)
[2024-09-26 23:41] LABS: Anaplasma phagocytophilum Negative (Negative); B. miyamotoi PCR Negative (Negative); Babesia divergens/MO-1 Negative (Negative); Babesia duncani Negative (Negative); Babesia microti Negative (Negative); Ehrlichia chaffeensis Negative (Negative); Ehrlichia ewingii/canis Negative (Negative); Ehrlichia muris eauclairensis Negative (Negative)
== END 2024-09-24 09:29 | disposition home or self-care (01) ==
PROVIDERS: PCP Nurse Practitioner Family; Visit Provider Nurse Practitioner Family
DX: L98.9 Disorder of the skin and subcutaneous tissue, unspecified (principal); W57.XXXA Bitten or stung by nonvenomous insect and other nonvenomous arthropods, initial encounter
CPT/HCPCS: 36415; 87798; 86618

== ENCOUNTER 2025-04-24 11:00 | Outpatient (CLI) | payer BC, SELFPAY ==
[2025-04-24 14:37] LABS: Anion Gap 8.1 mmol/L (3-11); BUN 16 mg/dL (9-23); CO2 28.9 mmol/L (20.0-31.0); Calcium 9.3 mg/dL (8.3-10.6); Chloride 107 mmol/L (98-107); Glucose 80 mg/dL (74-106); Potassium 4.2 mmol/L (3.5-5.1); Sodium 144 mmol/L (136-145)
[2025-04-24 14:39] LABS: TSH 0.10 uIU/mL (0.55-4.78)
[2025-04-24 22:41] LABS: T3, Total 97 ng/dL (82-158)
== END 2025-04-24 11:01 | disposition home or self-care (01) ==
PROVIDERS: PCP Nurse Practitioner Family; Visit Provider Nurse Practitioner Family
DX: E03.9 Hypothyroidism, unspecified (principal); I10 Essential (primary) hypertension
CPT/HCPCS: 36415; 80048; 84439; 84443; 84480